=== PATIENT | male | born 1940 | race Caucasian/White ===

== ENCOUNTER 2018-12-17 11:09 | Inpatient (IN) | payer OTHER ==
--- NOTE | 2018-12-17 11:36 | PDOC ---
History of Present Illness - General History Source: Patient Exam Limitations: No Limitations - History of Present Illness Initial Comments: 12/17/18 12:21 The patient is a 78-year-old male, with a past medical history of HTN, sciatica , and arthritis, who presents to the ED for 1 week of abdominal pain. The patient describes the pain as constant, sharp in sensation, 8/10 in severity, localized to the lower abdomen with no radiation, with associated yellow loose stools. is at beside and states that the patient has not had a full meal in the past 4 days. She has been giving the patient Pediasure, which he has been able to tolerate. The patient was seen in his PCPs office yesterday for the pain and was advised to report to the ED for further evaluation. The patient denies any fever, chills, nausea, or vomiting. Denies any frequency , urgency, hesitancy, dysuria, or hematuria. Denies any chest pain or shortness of breath. Allergies: NKA Social History: None reported. Surgical History: Hernia repair, total LT knee replacement. PCP: Dr. Tala Devine ([facility] [place]) <Estefani Portillo - Last Filed: 12/17/18 12:21> - General History Source: Patient Exam Limitations: No Limitations <Ayanna Moody - Last Filed: 12/17/18 17:01> <Chanda Dunn - Last Filed: 12/17/18 18:23> - General Chief Complaint: Pain Stated Complaint: ABD PAIN Time Seen by Provider: 12/17/18 11:36 Past History <Estefani Portillo - Last Filed: 12/17/18 12:21> - Past Medical History COPD: No HTN: Yes - Surgical History Abdominal Surgery: Yes (hernia) GI Surgery: No - Immunization History Immunization Up to Date: No - Suicide/Smoking/Psychosocial Hx Smoking History: Never smoked Have you smoked in the past 12 months: No Information on smoking cessation initiated: No Hx Alcohol Use: No Drug/Substance Use Hx: No <Ayanna Moody - Last Filed: 12/17/18 17:01> <Chanda Dunn - Last Filed: 12/17/18 18:23> - Past Medical History Allergies/Adverse Reactions: Allergies Allergy/AdvReac Type Severity Reaction Status Date / Time No Known Allergies Allergy Verified 12/17/18 11:14 Home Medications: Ambulatory Orders Amlodipine Besylate [Norvasc -] 2.5 mg PO DAILY 12/17/18 Lovastatin 10 mg PO DAILY 12/17/18 Review of Systems - Review of Systems Able to Perform ROS?: Yes Comments:: 12/17/18 12:21 GENERAL/CONSTITUTIONAL: (+)Loss of appetite. No fever or chills. No weakness. HEAD, EYES, EARS, NOSE AND THROAT: No change in vision. No ear pain or discharge. No sore throat. CARDIOVASCULAR: No chest pain or shortness of breath. RESPIRATORY: No cough, wheezing, or hemoptysis. GASTROINTESTINAL: (+)Abdominal pain, diarrhea. No nausea, vomiting, or constipation. GENITOURINARY: No dysuria, frequency, or change in urination. MUSCULOSKELETAL: No joint or muscle swelling or pain. No neck or back pain. SKIN: No rash NEUROLOGIC: No headache, vertigo, loss of consciousness, or change in strength/ sensation. ENDOCRINE: No increased thirst. No abnormal weight change. HEMATOLOGIC/LYMPHATIC: No anemia, easy bleeding, or history of blood clots. ALLERGIC/IMMUNOLOGIC: No hives or skin allergy. <Estefani Portillo - Last Filed: 12/17/18 12:21> *Physical Exam - Vital Signs Last Vital Signs Temp Pulse Resp BP Pulse Ox 98.8 F 98 H 16 121/62 12/17/18 11:12 12/17/18 11:12 12/17/18 11:12 12/17/18 11:12 - Physical Exam Comments: 12/17/18 12:22 GENERAL: The patient is in no acute distress. HEAD: Normal with no signs of trauma. EYES: PERRLA, EOMI, sclera anicteric, conjunctiva clear. ENT: Ears normal, nares patent, oropharynx clear without exudates. Moist mucous membranes. NECK: Normal range of motion, supple without lymphadenopathy, JVD, or masses. LUNGS: Breath sounds equal, clear to auscultation bilaterally. No wheezes, and no crackles. HEART: (+)3/6 systolic murmur at the RT sternal border. No rub or gallop. ABDOMEN: (+)LLQ tenderness to palpation with voluntary guarding. (+)Right inguinal hernia, nontender. Soft, normoactive bowel sounds. No rebound. No masses palpable. EXTREMITIES: Normal range of motion, no edema. No clubbing or cyanosis. No erythema, or tenderness. NEUROLOGICAL: Cranial nerves II through XII grossly intact. Normal speech. No focal neurological deficits. MUSCULOSKELETAL: Back non-tender to palpation, no CVA tenderness SKIN: Warm, Dry, normal turgor, no rashes or lesions noted. <Estefani Portillo - Last Filed: 12/17/18 12:21> - Vital Signs Last Vital Signs Temp Pulse Resp BP Pulse Ox 98.8 F 98 H 16 121/62 12/17/18 11:12 12/17/18 11:12 12/17/18 11:12 12/17/18 11:12 <Ayanna Moody - Last Filed: 12/17/18 17:01> - Vital Signs Last Vital Signs Temp Pulse Resp BP Pulse Ox 98.8 F 98 H 16 12162 12/17/18 11:12 12/17/18 11:12 12/17/18 11:12 12/17/18 11:12 <Chanda Dunn - Last Filed: 12/17/18 18:23> Moderate Sedation - Procedure Monitoring Vital Signs: Procedure Monitoring Vital Signs Temperature 98.8 F 12/17/18 11:12 Pulse Rate 98 H 12/17/18 11:12 Respiratory Rate 16 12/17/18 11:12 Blood Pressure 121/62 12/17/18 11:12 O2 Sat by Pulse Oximetry (%) <Estefani Portillo - Last Filed: 12/17/18 12:21> - Procedure Monitoring Vital Signs: Procedure Monitoring Vital Signs Temperature 98.8 F 12/17/18 11:12 Pulse Rate 98 H 12/17/18 11:12 Respiratory Rate 16 12/17/18 11:12 Blood Pressure 121/62 12/17/18 11:12 O2 Sat by Pulse Oximetry (%) <Ayanna Moody - Last Filed: 12/17/18 17:01> - Procedure Monitoring Vital Signs: Procedure Monitoring Vital Signs Temperature 98.8 F 12/17/18 11:12 Pulse Rate 98 H 12/17/18 11:12 Respiratory Rate 16 12/17/18 11:12 Blood Pressure 121/62 12/17/18 11:12 O2 Sat by Pulse Oximetry (%) <Chanda Dunn - Last Filed: 12/17/18 18:23> ED Treatment Course - LABORATORY CBC & Chemistry Diagram: 12/17/18 11:46 12/17/18 11:46 - Medications Given in the ED: ED Medications Discontinued Medications Generic Name Dose Route Start Last Admin Trade Name Vero PRN Reason Stop Dose Admin Acetaminophen 1,000 mg 12/17/18 11:48 12/17/18 12:14 Ofirmev Injection - IVPB 12/17/18 11:49 1,000 mg ONCE ONE Administration <Estefani Portillo - Last Filed: 12/17/18 12:21> - LABORATORY CBC & Chemistry Diagram: 12/17/18 11:46 12/17/18 11:46 <Ayanna Moody - Last Filed: 12/17/18 17:01> - LABORATORY CBC & Chemistry Diagram: 12/17/18 11:46 12/17/18 11:46 - ADDITIONAL ORDERS Additional order review: Laboratory Results 12/17/18 12/17/18 12/17/18 11:46 11:46 11:30 PT with INR 15.60 H INR 1.32 H Sodium 138 Potassium 3.7 Chloride 104 Carbon Dioxide 28 Anion Gap 7 L BUN 19 H Creatinine 1.2 Creat Clearance w eGFR 58.40 Random Glucose 114 H Lactic Acid 1.9 Calcium 9.3 Total Bilirubin 0.5 AST 18 ALT 17 Alkaline Phosphatase 52 Total Protein 6.4 Albumin 2.8 L Total Amylase 33 Lipase 58 L Urine Color Urine Appearance Urine pH Ur Specific [place] Urine Protein Urine Glucose (UA) Urine Ketones Urine Blood Urine Nitrite Urine Bilirubin Urine Urobilinogen Ur Leukocyte Esterase Urine WBC (Auto) Urine RBC (Auto) Ur Epithelial Cells Urine Mucus 12/17/18 11:15 PT with INR INR Sodium Potassium Chloride Carbon Dioxide Anion Gap BUN Creatinine Creat Clearance w eGFR Random Glucose Lactic Acid Calcium Total Bilirubin AST ALT Alkaline Phosphatase Total Protein Albumin Total Amylase Lipase Urine Color Donya Urine Appearance Slcloudy Urine pH 5.0 Ur Specific [place] 1.026 Urine Protein 2+ H Urine Glucose (UA) Negative Urine Ketones 1+ H Urine Blood 1+ H Urine Nitrite Negative Urine Bilirubin Negative Urine Urobilinogen Negative Ur Leukocyte Esterase Negative Urine WBC (Auto) 1 Urine RBC (Auto) 1 Ur Epithelial Cells Rare Urine Mucus Many 12/17/18 11:46 RBC 4.09 MCV 90.6 MCHC 35.2 RDW 12.7 MPV 7.3 L Neutrophils % 82.1 Lymphocytes % 7.6 L Monocytes % 9.4 Eosinophils % 0.7 Basophils % 0.2 - Medications Given in the ED: ED Medications Discontinued Medications Generic Name Dose Route Start Last Admin Trade Name Vero PRN Reason Stop Dose Admin Acetaminophen 1,000 mg 12/17/18 11:48 12/17/18 12:14 Ofirmev Injection - IVPB 12/17/18 11:49 1,000 mg ONCE ONE Administration Metronidazole 500 mg in 100 mls @ 100 mls/hr 12/17/18 17:00 12/17/18 17:29 Flagyl 500mg Premixed Ivpb - IVPB 12/17/18 17:59 100 mls/hr ONCE ONE Administration <Chanda Dunn - Last Filed: 12/17/18 18:23> Medical Decision Making - Medical Decision Making 12/17/18 11:50 Mr Rojas is a 78 yo M who presents to the ER for evaluation of abdominal pain Symptoms have been present for the past week He was seen by his PMD who recommended that he come to the hospital Pt reports no fevers No vomiting Still having bowel movements (yellow, liquid stools) (+) flatus No dysuria Pt has not wanted to eat has been giving pediasure Examination reveals: Dry mucous membranes Right inguinal hernia is soft and non tender LLQ very tender to palpation, voluntary guarding Concerning for: Diverticulitis, abscess, colitis, colon mass, obstructing stone, less likely incarcerated hernia Will do: Labs CT IVF Pain medications Re assess 12/17/18 12:31 Laboratory Tests 12/17/18 11:46 WBC 16.3 H Hgb 13.0 Hct 37.1 Plt Count 344 Neutrophils % 82.1 Lymphocytes % 7.6 L 12/17/18 12:45 Laboratory Tests 12/17/18 12/17/18 11:15 11:30 INR 1.32 H Urine Blood 1+ H Urine Nitrite Negative Ur Leukocyte Esterase Negative 12/17/18 13:58 Laboratory Tests 12/17/18 12/17/18 11:15 11:46 Sodium 138 Potassium 3.7 Chloride 104 Carbon Dioxide 28 BUN 19 H Creatinine 1.2 Random Glucose 114 H AST 18 ALT 17 Total Amylase 33 Lipase 58 L Urine Appearance Slcloudy Urine Nitrite Negative Ur Leukocyte Esterase Negative Urine WBC (Auto) 1 Urine RBC (Auto) [address]it[address] Cells Rare CT pending 12/17/18 15:38 Creatinine 1.2, BUN 19 Pt has been hydrated with IVF prior to CT 12/17/18 17:01 CT demonstrates crook colitis, appendix dilation, no surrounding stranding Will give Zosyn and Flagyl Will give IVF NPO Lactate nml, doubt ischemic colitis Will admit: crook colitis, initial presentation <Ayanna Moody - Last Filed: 12/17/18 17:01> - Medical Decision Making case discussed with Dr. Osborne from [facility] who accepts pt to service 12/17/18 18:23 <Chanda Dunn - Last Filed: 12/17/18 18:23> *DC/Admit/Observation/Transfer - Attestations Scribe Attestion: 12/17/18 12:25 Documentation prepared by Estefani Portillo, acting as medical collector for Ayanna Moody MD. <Estefani Portillo - Last Filed: 12/17/18 12:21> - Discharge Dispostion Decision to Admit order: Yes <Ayanna Moody - Last Filed: 12/17/18 17:01> <Chanda Dunn - Last Filed: 12/17/18 18:23> Diagnosis at time of Disposition: Pancolitis - Discharge Dispostion Condition at time of disposition: Stable
[2018-12-17] MEDS ORDERED: morphine CARPU-JECT 2 MG/1 ML DISP.SYRIN IVPUSH ONE (11:48)
[2018-12-17] MEDS ORDERED: ACETAMINOPHEN 1000 MG/100 ML VIAL (NON FORMULARY) IVPB ONE (11:48)
[2018-12-17] MEDS ORDERED: SODIUM CHLORIDE 1,000 ML IV STA (11:48)
[2018-12-17] MEDS ORDERED: ACETAMINOPHEN INJECTION 100 ML IVPB ONE (12:12)
[2018-12-17 12:27] LABS: BASO % 0.2 % (0-2.0); EOS % 0.7 % (0-4.5); HEMATOCRIT 37.1 % (35.4-49); LYMPH % 7.6 % (8-40); MCH 31.9 pg (25.7-33.7); MCHC 35.2 g/dl (32.0-35.9); MEAN CELL VOLUME 90.6 fl (80-96); MEAN PLT VOLUME 7.3 fl (7.5-11.1); MONO % 9.4 % (3.8-10.2); NEUT % 82.1 % (42.8-82.8); PLATELET COUNT 344 K/MM3 (134-434); RBC 4.09 M/mm3 (4.00-5.60); RDW 12.7 % (11.9-15.9); WHITE BLOOD COUNT 16.3 K/mm3 (4.0-10.0)
[2018-12-17 12:40] LABS: URINE APPEARANCE SLCLOUDY; URINE BILIRUBIN NEGATIVE (<2.0 mg/dL); URINE COLOR AMBER; URINE GLUCOSE (UA) NEGATIVE (NEGATIVE); URINE KETONE 1+ (NEGATIVE); URINE LEUK ESTERASE NEGATIVE (NEGATIVE); URINE NITRITE NEGATIVE (NEGATIVE); URINE PROTEIN 2+ (NEGATIVE); URINE UROBILINOGEN NEGATIVE mg/dL (0.2-1.0)
[2018-12-17 12:43] LABS: EPI CELLS RARE /HPF (FEW); URINE MUCUS MANY
[2018-12-17 12:43] LABS: INR 1.32 (0.83-1.09); PROTHROMBIN TIME (PATIENT) 15.6 SEC (9.7-13.0)
[2018-12-17 12:49] LABS: ALBUMIN 2.8 g/dl (3.4-5.0); ALK PHOS 52 U/L (45-117); AMYLASE 33 U/L (25-115); ANION GAP 7 MMOL/L (8-16); BILIRUBIN,TOTAL 0.5 mg/dL (0.2-1); BLOOD UREA NITROGEN 19 mg/dL (7-18); CALCIUM 9.3 mg/dL (8.5-10.1); CHLORIDE 104 mmol/L (98-107); CO2 28 mmol/L (21-32); CREATININE 1.2 mg/dL (0.55-1.3); GLUCOSE,RANDOM 114 mg/dL (74-106); LIPASE 58 U/L (73-393); POTASSIUM 3.7 mmol/L (3.5-5.1); SGOT/AST 18 U/L (15-37); SGPT/ALT 17 U/L (13-61); SODIUM 138 mmol/L (136-145); TOT PROT 6.4 g/dl (6.4-8.2)
[2018-12-17] MEDS ORDERED: PIPERACILLIN/TAZOB 4.5 GM 4.5 GM in DEXTROSE 5%-WATER 100 ML IVPB ONE (17:00)
[2018-12-17] MEDS ORDERED: PIPERACILLIN/TAZOB 4.5 GM 4.5 GM/100 ML BAG IVPB ONE (17:20)
[2018-12-17] MEDS: SODIUM CHLORIDE 1,000 ML IV SCH (17:28)
[2018-12-17] MEDS ORDERED: ACETAMINOPHEN 1000 MG/100 ML VIAL (NON FORMULARY) IVPB PRN (18:21)
[2018-12-17] MEDS ORDERED: MORPHINE SULFATE 2 MG/ML VIAL ONE (20:09)
--- NOTE | 2018-12-17 20:51 | HP ---
CHIEF COMPLAINT: diarrhea PCP: Dr. Tala Devine HISTORY OF PRESENT ILLNESS: 78 y/o male with PMH of HTN, sciatica presents to the ED with multiple episodes of diarrhea for the past week. Patient states that for the past week he has been having multiple episodes of loose, watery yellow stool with mucus. However , he has not had any associated nausea/vomiting or abdominal pain, nor any fevers or chills. Patient denies any recent travel, changes in diet, or any recent antibiotic use/hospitalizations. He has not had a colonoscopy in the past. ER course was notable for: (1)wbc 16.3; LA 1.9 (2) CT ab/pelvis shows pancolitis (3)given zosyn/flagyl; Recent Travel: none PAST MEDICAL HISTORY: see above PAST SURGICAL HISTORY: knee surgery in 1999 Social History: Smoking:denies Alcohol:denies Drugs: denies Family History: father from ruptured abdominal aortic aneurysm Allergies No Known Allergies Allergy (Verified 12/17/18 11:14) HOME MEDICATIONS: Home Medications Medication Instructions Recorded Amlodipine Besylate [Norvasc -] 2.5 mg PO DAILY 12/17/18 Lovastatin 10 mg PO DAILY 12/17/18 REVIEW OF SYSTEMS CONSTITUTIONAL: Absent: fever, chills, diaphoresis, generalized weakness, malaise, loss of appetite, weight change HEENT: Absent: rhinorrhea, nasal congestion, throat pain, throat swelling, difficulty swallowing, mouth swelling, ear pain, eye pain, visual changes CARDIOVASCULAR: Absent: chest pain, syncope, palpitations, irregular heart rate, lightheadedness , peripheral edema RESPIRATORY: Absent: cough, shortness of breath, dyspnea with exertion, orthopnea, wheezing, stridor, hemoptysis GASTROINTESTINAL: Present: diarrheaAbsent: abdominal pain, abdominal distension, nausea, vomiting , constipation, melena, hematochezia GENITOURINARY: Absent: dysuria, frequency, urgency, hesitancy, hematuria, flank pain, genital pain MUSCULOSKELETAL: Absent: myalgia, arthralgia, joint swelling, back pain, neck pain SKIN: Absent: rash, itching, pallor HEMATOLOGIC/IMMUNOLOGIC: Absent: easy bleeding, easy bruising, lymphadenopathy, frequent infections ENDOCRINE: Absent: unexplained weight gain, unexplained weight loss, heat intolerance, cold intolerance NEUROLOGIC: Absent: headache, focal weakness or paresthesias, dizziness, unsteady gait, seizure, mental status changes, bladder or bowel incontinence PSYCHIATRIC: Absent: anxiety, depression, suicidal or homicidal ideation, hallucinations. PHYSICAL EXAMINATION Vital Signs - 24 hr 12/17/18 12/17/18 11:12 19:24 Temperature 98.8 F 98.7 F Pulse Rate 98 H Pulse Rate [ 103 H Apical] Respiratory 16 22 H Rate Blood Pressure 121/62 Blood Pressure 132/69 [Left Arm] O2 Sat by Pulse 97 Oximetry (%) GENERAL: Awake, alert, and fully oriented, in no acute distress. EYES: EOMI; no scleral icterus.. NECK: no JVD, no lymphadenopathy. LUNGS: CTA B/L; no rales, rhonchi or wheezing HEART: tachycardic; 3/6 systolic murmur heard in right upper sternal border. ABDOMEN: sooft; slight lower abdominal tenderness upon palpation; + BS in all 4 quadrants; no guarding or rebound MUSCULOSKELETAL: Normal range of motion at all joints. No bony deformities or tenderness. No CVA tenderness. EXTREMITIES: warm; well-perfused; no clubbing/cyanosis or edema NEUROLOGICAL: Cranial nerves II-XII intact. Normal speech. Normal gait. PSYCHIATRIC: Cooperative. Good eye contact. Appropriate mood and affect. SKIN: Warm, dry, normal turgor, no rashes or lesions noted, normal capillary refill. Laboratory Results - last 24 hr 12/17/18 12/17/18 12/17/18 11:15 11:30 11:46 WBC 16.3 H RBC 4.09 Hgb 13.0 Hct 37.1 MCV 90.6 MCH 31.9 MCHC 35.2 RDW 12.7 Plt Count 344 MPV 7.3 L Absolute Neuts (auto) 13.4 H Neutrophils % 82.1 Lymphocytes % 7.6 L Monocytes % 9.4 Eosinophils % 0.7 Basophils % 0.2 Nucleated RBC % 0 PT with INR 15.60 H INR 1.32 H Sodium Potassium Chloride Carbon Dioxide Anion Gap BUN Creatinine Creat Clearance w eGFR Random Glucose Lactic Acid Calcium Total Bilirubin AST ALT Alkaline Phosphatase Total Protein Albumin Total Amylase Lipase Urine Color Donya Urine Appearance Slcloudy Urine pH 5.0 Ur Specific [place] 1.026 Urine Protein 2+ H Urine Glucose (UA) Negative Urine Ketones 1+ H Urine Blood 1+ H Urine Nitrite Negative Urine Bilirubin Negative Urine Urobilinogen Negative Ur Leukocyte Esterase Negative Urine WBC (Auto) 1 Urine RBC (Auto) 1 Ur Epithelial Cells Rare Urine Mucus Many 12/17/18 12/17/18 11:46 11:46 WBC RBC Hgb Hct MCV MCH MCHC RDW Plt Count MPV Absolute Neuts (auto) Neutrophils % Lymphocytes % Monocytes % Eosinophils % Basophils % Nucleated RBC % PT with INR INR Sodium 138 Potassium 3.7 Chloride 104 Carbon Dioxide 28 Anion Gap 7 L BUN 19 H Creatinine 1.2 Creat Clearance w eGFR 58.40 Random Glucose 114 H Lactic Acid 1.9 Calcium 9.3 Total Bilirubin 0.5 AST 18 ALT 17 Alkaline Phosphatase 52 Total Protein 6.4 Albumin 2.8 L Total Amylase 33 Lipase 58 L Urine Color Urine Appearance Urine pH Ur Specific [place] Urine Protein Urine Glucose (UA) Urine Ketones Urine Blood Urine Nitrite Urine Bilirubin Urine Urobilinogen Ur Leukocyte Esterase Urine WBC (Auto) Urine RBC (Auto) Ur Epithelial Cells Urine Mucus ASSESSMENT/PLAN: 78 y/o male with PMH of HTN, sciatica presents to the ED with a one week history of diarrhea with slight lower abdominal tenderness. #Diarrhea 2/2 colitis -etiology infectious v. c diff v. viral v. parasitic -stool cultures pending -stool ova and parasite ordered -c diff antigen and toxin -c/w zosyn and flagyl -IV fluids -GI consult #HTN -c/w home meds F/E/N NS @125 mls monitor electrolytes NPO Problem List - Problem (1) Pancolitis Code(s): K51.00 - ULCERATIVE (CHRONIC) PANCOLITIS WITHOUT COMPLICATIONS Visit type - Emergency Visit Emergency Visit: Yes ED Registration Date: 12/17/18 Care time: The patient presented to the Emergency Department on the above date and was hospitalized for further evaluation of their emergent condition. - New Patient This patient is new to me today: Yes Date on this admission: 12/17/18 - Critical Care Critical Care patient: No
[2018-12-17] MEDS ORDERED: PIPERACILLIN/TAZOB 4.5 GM 4.5 GM in DEXTROSE 5%-WATER 100 ML IVPB SCH (21:00)
--- NOTE | 2018-12-17 21:07 | PN ---
Teaching Attending Note Name of Resident: Kezia Miramontes ATTENDING PHYSICIAN STATEMENT I saw and evaluated the patient. I reviewed the resident's note and discussed the case with the resident. I agree with the resident's findings and plan as documented. SUBJECTIVE: OBJECTIVE: Vital Signs Period Temp Pulse Resp BP Sys/Leon Pulse Ox Last 24 Hr 98.7 F-98.8 F 98-103 16-22 121-132/62-69 97 Laboratory Tests 12/17/18 12/17/18 12/17/18 11:15 11:30 11:46 WBC 16.3 H RBC 4.09 Hgb 13.0 Hct 37.1 MCV 90.6 MCH 31.9 MCHC 35.2 RDW 12.7 Plt Count 344 MPV 7.3 L Absolute Neuts (auto) 13.4 H Neutrophils % 82.1 Lymphocytes % 7.6 L Monocytes % 9.4 Eosinophils % 0.7 Basophils % 0.2 Nucleated RBC % 0 PT with INR 15.60 H INR 1.32 H Sodium Potassium Chloride Carbon Dioxide Anion Gap BUN Creatinine Creat Clearance w eGFR Random Glucose Lactic Acid Calcium Total Bilirubin AST ALT Alkaline Phosphatase Total Protein Albumin Total Amylase Lipase Urine Color Donya Urine Appearance Slcloudy Urine pH 5.0 Ur Specific [place] 1.026 Urine Protein 2+ H Urine Glucose (UA) Negative Urine Ketones 1+ H Urine Blood 1+ H Urine Nitrite Negative Urine Bilirubin Negative Urine Urobilinogen Negative Ur Leukocyte Esterase Negative Urine WBC (Auto) 1 Urine RBC (Auto) 1 Ur Epithelial Cells Rare Urine Mucus Many 12/17/18 12/17/18 11:46 11:46 WBC RBC Hgb Hct MCV MCH MCHC RDW Plt Count MPV Absolute Neuts (auto) Neutrophils % Lymphocytes % Monocytes % Eosinophils % Basophils % Nucleated RBC % PT with INR INR Sodium 138 Potassium 3.7 Chloride 104 Carbon Dioxide 28 Anion Gap 7 L BUN 19 H Creatinine 1.2 Creat Clearance w eGFR 58.40 Random Glucose 114 H Lactic Acid 1.9 Calcium 9.3 Total Bilirubin 0.5 AST 18 ALT 17 Alkaline Phosphatase 52 Total Protein 6.4 Albumin 2.8 L Total Amylase 33 Lipase 58 L Urine Color Urine Appearance Urine pH Ur Specific [place] Urine Protein Urine Glucose (UA) Urine Ketones Urine Blood Urine Nitrite Urine Bilirubin Urine Urobilinogen Ur Leukocyte Esterase Urine WBC (Auto) Urine RBC (Auto) Ur Epithelial Cells Urine Mucus Home Medications Medication Instructions Recorded Amlodipine Besylate [Norvasc -] 2.5 mg PO DAILY 12/17/18 Lovastatin 10 mg PO DAILY 12/17/18 ASSESSMENT AND PLAN:
--- NOTE | 2018-12-17 21:23 | PN ---
Teaching Attending Note Name of Resident: Kezia Miramontes ATTENDING PHYSICIAN STATEMENT I saw and evaluated the patient. I reviewed the resident's note and discussed the case with the resident. I agree with the resident's findings and plan as documented. SUBJECTIVE: This is a 78 year old man with a history of HTN, hyperlipidemia, sciatica who comes to the ED complaining of lower abdominal pain and diarrhea for one week. His bowel movements have been watery and yellow and containing mucus. He has not had an appetite and eating makes his symptoms worse. He denies fever, chills, nausea, vomiting, rectal bleeding. He has never had anything similar. He denies recent travel. he has not eaten anything or anywhere unusual. He denies sick contacts. OBJECTIVE: Vital Signs Period Temp Pulse Resp BP Sys/Leon Pulse Ox Last 24 Hr 98.7 F-98.8 F 98-103 16-22 121-132/62-69 97 HEART: S1S2, tachycardic LUNGS: Clear ABDOMEN: Soft, non-tender, non-distended, (+) BS EXTREMITIES: No edema Laboratory Tests 12/17/18 12/17/18 12/17/18 11:15 11:30 11:46 WBC 16.3 H RBC 4.09 Hgb 13.0 Hct 37.1 MCV 90.6 MCH 31.9 MCHC 35.2 RDW 12.7 Plt Count 344 MPV 7.3 L Absolute Neuts (auto) 13.4 H Neutrophils % 82.1 Lymphocytes % 7.6 L Monocytes % 9.4 Eosinophils % 0.7 Basophils % 0.2 Nucleated RBC % 0 PT with INR 15.60 H INR 1.32 H Sodium Potassium Chloride Carbon Dioxide Anion Gap BUN Creatinine Creat Clearance w eGFR Random Glucose Lactic Acid Calcium Total Bilirubin AST ALT Alkaline Phosphatase Total Protein Albumin Total Amylase Lipase Urine Color Donya Urine Appearance Slcloudy Urine pH 5.0 Ur Specific [place] 1.026 Urine Protein 2+ H Urine Glucose (UA) Negative Urine Ketones 1+ H Urine Blood 1+ H Urine Nitrite Negative Urine Bilirubin Negative Urine Urobilinogen Negative Ur Leukocyte Esterase Negative Urine WBC (Auto) 1 Urine RBC (Auto) 1 Ur Epithelial Cells Rare Urine Mucus Many 12/17/18 12/17/18 11:46 11:46 WBC RBC Hgb Hct MCV MCH MCHC RDW Plt Count MPV Absolute Neuts (auto) Neutrophils % Lymphocytes % Monocytes % Eosinophils % Basophils % Nucleated RBC % PT with INR INR Sodium 138 Potassium 3.7 Chloride 104 Carbon Dioxide 28 Anion Gap 7 L BUN 19 H Creatinine 1.2 Creat Clearance w eGFR 58.40 Random Glucose 114 H Lactic Acid 1.9 Calcium 9.3 Total Bilirubin 0.5 AST 18 ALT 17 Alkaline Phosphatase 52 Total Protein 6.4 Albumin 2.8 L Total Amylase 33 Lipase 58 L Urine Color Urine Appearance Urine pH Ur Specific [place] Urine Protein Urine Glucose (UA) Urine Ketones Urine Blood Urine Nitrite Urine Bilirubin Urine Urobilinogen Ur Leukocyte Esterase Urine WBC (Auto) Urine RBC (Auto) Ur Epithelial Cells Urine Mucus Home Medications Medication Instructions Recorded Amlodipine Besylate [Norvasc -] 2.5 mg PO DAILY 12/17/18 Lovastatin 10 mg PO DAILY 12/17/18 ASSESSMENT AND PLAN: This is a 78 year old man with a history of HTN, hyperlipidemia, sciatica who presented to the ED with lower abdominal pain and diarrhea for one week. 1. Sepsis (leukocytosis, tachycardia) secondary to acute infectious colitis - NPO - IV fluid - Ceftriaxone, Flagyl IV - Stool for culture, O&P, C. diff 2. HTN - Continue Norvasc 3. Hyperlipidemia - Continue Mevacor
[2018-12-17] MEDS ORDERED: HEPARIN NA (PORCINE) 5,000 UNITS/ML 1ML VIAL ONE (22:54)
[2018-12-17] MEDS ORDERED: CEFTRIAXONE 1 GM/50 ML BAG ONE (22:54)
[2018-12-17] MEDS: HEPARIN NA (PORCINE) 5,000 UNITS/ML 1ML VIAL SQ SCH (23:19)
[2018-12-17] MEDS: CEFTRIAXONE 1 GM in DEXTROSE 5%-WATER - 50 ML IVPB SCH (23:19)
[2018-12-18] MEDS ORDERED: PIPERACILLIN/TAZOB 3.375 GM 3.375 GM in DEXTROSE 5%-WATER - 50 ML IVPB SCH (02:00)
[2018-12-18 02:13] VITALS: BMI 23.5
[2018-12-18] MEDS: SODIUM CHLORIDE 1,000 ML IV SCH ×2 (02:37→19:39)
[2018-12-18] MEDS: HEPARIN NA (PORCINE) 5,000 UNITS/ML 1ML VIAL SQ SCH ×3 (06:11→21:06)
[2018-12-18 07:34] LABS: BASO % 0.5 % (0-2.0); EOS % 2.9 % (0-4.5); HEMATOCRIT 30.4 % (35.4-49); HEMOGLOBIN 10.5 GM/dL (11.7-16.9); LYMPH % 10.8 % (8-40); MCH 31.8 pg (25.7-33.7); MCHC 34.6 g/dl (32.0-35.9); MEAN CELL VOLUME 91.8 fl (80-96); MONO % 11.7 % (3.8-10.2); NEUT % 74.1 % (42.8-82.8); PLATELET COUNT 255 K/MM3 (134-434); RBC 3.31 M/mm3 (4.00-5.60); RDW 12.9 % (11.9-15.9); WHITE BLOOD COUNT 11.2 K/mm3 (4.0-10.0)
--- NOTE | 2018-12-18 07:49 | CON.GI ---
Consult Consult Specialty:: GI Referred by:: Hospitalist Service Reason for Consultation:: Abdominal pain and diarrhea - History of Present Illness Chief Complaint: Abdominal pain and diarrhea History of Present Illness: 78M admitted for evaluation of 5 days worth of lower abdominal pain and explosive, watery diarrhea. Prior to that he was in his [place]. He denies any recent travel, change in dietary habits, sick contacts with similar complaints, recent antibiotic therapy, recent change in medication regimen, prior history of GI complaints. He alludes to having had a recent cortisone injection for left sided sciatica. He denies associated nausea, vomiting, rectal bleeding. There is no family history of colorectal cancer or other GI malignancy. There is no family history of IBD. CT scan revealed diffuse colitis spanning the length of the colon as well as hepatic cysts and a right inguinal hernia. leukocytosis is improved. No stool studies have been sent as of yet. 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) Cardio/Vascular: Yes: HTN - Past Surgical History Additional Surgical History: right knee surgery - Alcohol/Substance Use Hx Alcohol Use: No History of Substance Use: reports: None - Smoking History Smoking history: Never smoked Have you smoked in the past 12 months: No - Social History Usual Living Arrangement: With Spouse ADL: Independent Occupation: Retired: worked for [employer] of : [employer] History of Recent Travel: No Home Medications - Allergies Allergies/Adverse Reactions: Allergies Allergy/AdvReac Type Severity Reaction Status Date / Time No Known Allergies Allergy Verified 12/17/18 11:14 - Home Medications Home Medications: Ambulatory Orders Amlodipine Besylate [Norvasc -] 2.5 mg PO DAILY 12/17/18 Lovastatin 10 mg PO DAILY 12/17/18 Family Disease History - Family Disease History Family Disease History: Other: Father (: 80's "old age"), Mother (: 80' s "old age"), Brother (2, 1 from perforation, 1 from unclear etiology) , Son (3, healthy) Other Family History: No family history of colorectal cancer / IBD Review of Systems - Review of Systems Constitutional: reports: Chills. denies: Unintentional Wgt. Loss Cardiovascular: denies: Chest Pain Respiratory: denies: Cough, SOB Gastrointestinal: reports: Abdominal Pain, Diarrhea. denies: Melena, Nausea, Rectal Bleeding, Vomiting Physical Exam-GI Vital Signs: Vital Signs Temperature 98.3 F 12/18/18 06:46 Pulse Rate 96 H 12/18/18 06:46 Respiratory Rate 20 12/18/18 06:46 Blood Pressure 118/73 12/18/18 06:46 O2 Sat by Pulse Oximetry (%) 97 12/18/18 01:58 Constitutional: Yes: Calm Eyes: No: Sclera Icterus Cardiovascular: Yes: Tachycardia, Murmur (+ systolic murmur) Respiratory: Yes: CTA Bilaterally Gastrointestinal Inspection: No: Distention ...Auscultate: Yes: Hyperactive Bowel Sounds ...Palpate: Yes: Tenderness (TTP left abdomen and suprapubic region) ...Percussion: No: Tympanitic Edema: No (No LE edema) Neurological: Yes: Alert, Oriented Labs: CBC, BMP 12/18/18 06:30 INR, PTT INR 1.32 (0.83-1.09) H 12/17/18 11:30 Problem List - Problems (1) Pancolitis Assessment/Plan: By description, acute colitis: Suspect infectious etiology Await stool studies: c. diff, culture, O&P On multiple abx currently. D/C IV flagyl, PO Vanco until C. Diff excluded ID consulted No need to keep NPO. See if can tolerate clears Monitor abdominal exam, CBC Code(s): K51.00 - ULCERATIVE (CHRONIC) PANCOLITIS WITHOUT COMPLICATIONS
[2018-12-18] MEDS ORDERED: cefTRIAXone SODIUM 1 GM VIAL ONE (08:31)
[2018-12-18] MEDS ORDERED: DEXTROSE 5%-WATER - 50 ML IVPB ONE (08:31)
[2018-12-18 09:23] LABS: ALBUMIN 2.2 g/dl (3.4-5.0); ALK PHOS 39 U/L (45-117); ANION GAP 11 MMOL/L (8-16); BILIRUBIN,TOTAL 1.2 mg/dL (0.2-1); BLOOD UREA NITROGEN 14 mg/dL (7-18); CALCIUM 7.9 mg/dL (8.5-10.1); CHLORIDE 110 mmol/L (98-107); CO2 22 mmol/L (21-32); GLUCOSE,RANDOM 78 mg/dL (74-106); MAGNESIUM 1.8 mg/dL (1.8-2.4); PHOSPHOROUS 2.3 mg/dL (2.5-4.9); POTASSIUM 3.6 mmol/L (3.5-5.1); SGOT/AST 18 U/L (15-37); SGPT/ALT 14 U/L (13-61); SODIUM 143 mmol/L (136-145); TOT PROT 4.8 g/dl (6.4-8.2)
[2018-12-18] MEDS: CEFTRIAXONE 1 GM in DEXTROSE 5%-WATER - 50 ML IVPB SCH (09:33)
[2018-12-18] MEDS: amLODIPine BESYLATE 2.5 MG TABLET (FP) PO SCH (09:33)
--- NOTE | 2018-12-18 11:57 | EKG ---
Test Reason : Blood Pressure : / mmHG Vent. Rate : 108 BPM Atrial Rate : 108 BPM P-R Int : 140 ms QRS Dur : 100 ms QT Int : 326 ms P-R-T Axes : 007 -22 033 degrees QTc Int : 436 ms SINUS TACHYCARDIA WITH PREMATURE ATRIAL COMPLEXES WITH ABERRANT CONDUCTION OTHERWISE NORMAL ECG NO PREVIOUS ECGS AVAILABLE Confirmed by EBONY JOLLY, BLAINE ([id number]) on 12/18/2018 11:56:53 AM Referred By: Confirmed By:BLAINE BECK MD
--- NOTE | 2018-12-18 12:58 | PN ---
Progress Note (short form) - Note Progress Note: ID CONSULT DICTATED PANCOLITIS R/O ENTERIC PATHOGENS FEVER/ LEUKOCYTOSIS R/O SEPSIS SECONDARY TO GI FOCUS AWAIT STOOL STUDIES CONTINUE EMPIRIC CEFTRIAXONE/ FLAGYL
--- NOTE | 2018-12-18 13:27 | CONS ---
DATE OF CONSULTATION: DATE OF DICTATION: 12/18/2018 HISTORY: The patient is a 78-year-old male who was evaluated for colitis. He was admitted to the hospital on December 17, 2018 with an approximately [id number] of lower abdominal pain and diarrhea. The patient describes intermittent sharp abdominal pain mainly in the left lower quadrant associated with loose, yellow bowel movements. He has had [id number] oral intake over the past 3-4 days. He was evaluated in the emergency room where a CAT scan showed pancolitis as well as a fluid-filled appendix and right lower quadrant mesenteric lymphadenitis. Cultures were obtained. He was empirically treated with ceftriaxone and Flagyl. The patient at the present time is comfortable. He continues to have loose, nonbloody stool. He denies any nausea or vomiting. No hematemesis or vomiting or zack blood. No melena or hematochezia. He denies any associated fever or chills. No recent antibiotic usage. No ill contacts. His with whom he shares meals has no GI symptoms. No recent travel. PAST MEDICAL HISTORY: Positive for hypertension, hyperlipidemia, osteoarthritis, sciatica. 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 ALLERGIES: No known allergies. MEDICATIONS: Include Tylenol, Norvasc, Lipitor, ceftriaxone, Flagyl. SOCIAL HISTORY: He lives at home. Nonsmoker. Nondrinker. SYSTEMS REVIEW: Neurologic: No loss of consciousness, seizure activity, focal weakness. Cardiac: Negative chest pain or palpitations. Respiratory: Negative cough or sputum production. Gastrointestinal: As per HPI. Genitourinary: Negative for urinary tract infection. LABORATORY DATA: White count 16.3 with 82 neutrophils, 7 lymphocytes, 9 monocytes, 0.7 eosinophils. Hematocrit 30.4, platelet count 255, creatinine 1, total bilirubin 1.2, alkaline phosphatase 39, AST 18. Urinalysis 1 white cells. Cultures are pending. CAT scan as described. PHYSICAL EXAMINATION: General: He is supine in bed in no acute distress. Vital Signs: Temperature 97.8, T-max 101.4, blood pressure 112/60, pulse 92 and regular, respirations 18 per minute. HEENT: Sclerae anicteric. Dry mucous membranes. Heart: S1, S2. Lungs: Clear. Abdomen: Hypoactive bowel sounds. Abdomen is soft. There is left lower quadrant tenderness to palpation. No right lower quadrant tenderness. There is a right inguinal hernia. No mass, rebound, or rigidity. Extremities: Negative for edema. IMPRESSION: 1. Pancolitis, rule out enteric pathogens. 2. Fever, leukocytosis, rule out sepsis secondary to gastrointestinal focus. 3. Inguinal hernia. PLAN: Await stool studies. Stool culture and sensitivity, ova and parasites, Clostridium difficile. We will obtain stool for Norovirus, Rotavirus, Cryptosporidium, giardia, and Isospora. We will order ameobic serology in light of CAT scan findings of hepatic cysts. Continue empiric ceftriaxone and Flagyl. Further recommendations pending cultures. We will follow. Thank you for the kind referral. JOSIAH MCGILL M.D. [id number]
[2018-12-18] MEDS: PIPERACILLIN/TAZOB 3.375 GM 3.375 GM in DEXTROSE 5%-WATER - 50 ML IVPB SCH ×2 (13:47)
--- NOTE | 2018-12-18 16:48 | PN ---
Physical Exam: SUBJECTIVE: Patient seen and examined at bedside this morning. Patient is a 78 year old male with past medical history of HTN and sciatica, presented with a 5- day history of multiple episodes of loose, watery brownish stools. This was accompanied by lower abdominal pain. Patient denies nausea, vomiting, fever, or chills. He denies any recent travel, diet changes, recent antibiotic use/ hospitalizations, sick contacts, medications changes. Overnight, patient had a fever of 101.4, but remained afebrile the whole day. OBJECTIVE: Vital Signs Period Temp Pulse Resp BP Sys/Leon Pulse Ox Last 24 Hr 97.8 F-101.4 F 68-103 18-22 110-134/60-73 97-97 GENERAL: The patient is awake, alert, and fully oriented, in no acute distress. NECK: Trachea midline, full range of motion, supple. LUNGS: Breath sounds equal, clear to auscultation bilaterally. HEART: Regular rate and rhythm, S1, S2 without murmur, rub or gallop. ABDOMEN: Soft, +LLQ tenderness, nondistended, normoactive bowel sounds. EXTREMITIES: 2+ pulses, warm, well-perfused, no edema. NEUROLOGICAL: Cranial nerves II through XII grossly intact. Normal speech, gait not observed. PSYCH: Normal mood, normal affect. SKIN: Warm, dry, normal turgor, no rashes or lesions noted Laboratory Results - last 24 hr 12/18/18 12/18/18 12/18/18 06:30 06:30 06:30 WBC 11.2 H RBC 3.31 L Hgb 10.5 L Hct 30.4 L D MCV 91.8 MCH 31.8 MCHC 34.6 RDW 12.9 Plt Count 255 D MPV 7.0 L Absolute Neuts (auto) 8.3 H Neutrophils % 74.1 Lymphocytes % 10.8 D Monocytes % 11.7 H Eosinophils % 2.9 D Basophils % 0.5 Nucleated RBC % 0 ESR 44 H Sodium 143 Potassium 3.6 Chloride 110 H Carbon Dioxide 22 Anion Gap 11 BUN 14 Creatinine 1.0 Creat Clearance w eGFR > 60 Random Glucose 78 Calcium 7.9 L Phosphorus 2.3 L Magnesium 1.8 Total Bilirubin 1.2 H AST 18 ALT 14 Alkaline Phosphatase 39 L Total Protein 4.8 L Albumin 2.2 L Active Medications Generic Name Dose Route Start Last Admin Trade Name Freq PRN Reason Stop Dose Admin Acetaminophen 1,000 mg 12/17/18 18:21 12/18/18 02:36 Ofirmev Injection - IVPB 1,000 mg Q6H PRN Administration PAIN OR FEVER Amlodipine Besylate 2.5 mg 12/18/18 10:00 12/18/18 09:33 Norvasc - PO 2.5 mg DAILY DOUG Administration Atorvastatin Calcium 10 mg 12/18/18 22:00 Lipitor - PO HS DOUG Heparin Sodium (Porcine) 5,000 unit 12/17/18 22:00 12/18/18 14:04 Heparin - SQ 5,000 unit TID DOUG Administration Sodium Chloride 1,000 mls @ 125 mls/hr 12/17/18 17:00 12/18/18 02:37 Normal Saline - IV 125 mls/hr ASDIR DOUG Administration Metronidazole 500 mg in 100 mls @ 100 mls/hr 12/17/18 21:00 12/18/18 14:07 Flagyl 500mg Premixed Ivpb - IVPB 100 mls/hr Q6H-IV DOUG Administration Vancomycin HCl 125 mg 12/18/18 18:00 Vancomycin Oral Solution PO Q6HPO DOUG ASSESSMENT/PLAN: Patient is a 78 year old male with past medical history of HTN and sciatica, presented with a 5-day history of multiple episodes of loose, watery brownish stools. #Diarrhea 2/2 colitis -CT AP: Acute pancolitis is identified. Mild fluid-filled distention of the appendix probably on a reactive basis. Several mildly prominent right lower quadrant mesenteric lymph nodes are seen probably on a reactive basis also. A right inguinal hernia is noted containing nondilated distal ileal bowel loops. No gross small bowel inflammatory changes. -C. diff toxin and antigen positive -stool culture, ova and parasite pending -GI (Dr. Dacosta) consulted. REcommendations appreciated. -ID (Dr. Walter) consulted. Recommendations appreciated. -IV Flagyl 500mg q6h -PO Vancomycin 125mg q6h -Parasites crypto/Giardia Ag -E. histolytica, Isospora, Norovirus, Rotavirus ag #Hypertension -Continue Norvasc 2.5mg daily #Hyperlipidemia -Continue Lipitor 10mg PO HS #FEN -IV NS @125ml/hr -hypokalemia, repleted -Routine bmp monitoring -Clear liquid diet #Prophylaxis -Heparin 5000units sq tid #Disposition -full code -med surg Visit type - Emergency Visit Emergency Visit: Yes ED Registration Date: 12/17/18 Care time: The patient presented to the Emergency Department on the above date and was hospitalized for further evaluation of their emergent condition. - New Patient This patient is new to me today: Yes Date on this admission: 12/18/18 - Critical Care Critical Care patient: No
[2018-12-18] MEDS ORDERED: PT OWN MED DRAWER 7, Y5N ONE (16:55)
--- NOTE | 2018-12-18 18:34 | PN ---
Teaching Attending Note Name of Resident: Altagracia Ruff ATTENDING PHYSICIAN STATEMENT I saw and evaluated the patient. I reviewed the resident's note and discussed the case with the resident. I agree with the resident's findings and plan as documented. SUBJECTIVE: Patient continues to have diarrhea. No nausea or vomiting. OBJECTIVE: Vital Signs Temperature 98.7 F 12/18/18 18:29 Pulse Rate 98 H 12/18/18 18:29 Respiratory Rate 20 12/18/18 18:29 Blood Pressure 136/64 12/18/18 18:29 O2 Sat by Pulse Oximetry (%) 97 12/18/18 01:58 GENERAL: The patient is awake, alert, and fully oriented, in no acute distress. NECK: Trachea midline, full range of motion, supple. LUNGS: Breath sounds equal, clear to auscultation bilaterally. HEART: Regular rate and rhythm, S1, S2 without murmur, rub or gallop. ABDOMEN: Soft, mild tenderness LLQ, nondistended, normoactive bowel sounds. EXTREMITIES: 2+ pulses, warm, well-perfused, no edema. NEUROLOGICAL: Cranial nerves II through XII grossly intact. Normal speech, gait not observed. PSYCH: Normal mood, normal affect. SKIN: Warm, dry, normal turgor, no rashes or lesions noted CBCD WBC 11.2 K/mm3 (4.0-10.0) H 12/18/18 06:30 RBC 3.31 M/mm3 (4.00-5.60) L 12/18/18 06:30 Hgb 10.5 GM/dL (11.7-16.9) L 12/18/18 06:30 Hct 30.4 % (35.4-49) L D 12/18/18 06:30 MCV 91.8 fl (80-96) 12/18/18 06:30 MCHC 34.6 g/dl (32.0-35.9) 12/18/18 06:30 RDW 12.9 % (11.9-15.9) 12/18/18 06:30 Plt Count 255 K/MM3 (134-434) D 12/18/18 06:30 MPV 7.0 fl (7.5-11.1) L 12/18/18 06:30 CMP Sodium 143 mmol/L (136-145) 12/18/18 06:30 Potassium 3.6 mmol/L (3.5-5.1) 12/18/18 06:30 Chloride 110 mmol/L (98-107) H 12/18/18 06:30 Carbon Dioxide 22 mmol/L (21-32) 12/18/18 06:30 Anion Gap 11 MMOL/L (8-16) 12/18/18 06:30 BUN 14 mg/dL (7-18) 12/18/18 06:30 Creatinine 1.0 mg/dL (0.55-1.3) 12/18/18 06:30 Creat Clearance w eGFR > 60 (>60) 12/18/18 06:30 Random Glucose 78 mg/dL (74-106) 12/18/18 06:30 Calcium 7.9 mg/dL (8.5-10.1) L 12/18/18 06:30 Total Bilirubin 1.2 mg/dL (0.2-1) H 12/18/18 06:30 AST 18 U/L (15-37) 12/18/18 06:30 ALT 14 U/L (13-61) 12/18/18 06:30 Alkaline Phosphatase 39 U/L (45-117) L 12/18/18 06:30 Total Protein 4.8 g/dl (6.4-8.2) L 12/18/18 06:30 Albumin 2.2 g/dl (3.4-5.0) L 12/18/18 06:30 Current Medications Generic Name Dose Route Start Last Admin Trade Name Freq PRN Reason Stop Dose Admin Acetaminophen 1,000 mg 12/17/18 18:21 12/18/18 02:36 Ofirmev Injection - IVPB 1,000 mg Q6H PRN Administration PAIN OR FEVER Amlodipine Besylate 2.5 mg 12/18/18 10:00 12/18/18 09:33 Norvasc - PO 2.5 mg DAILY DOUG Administration Atorvastatin Calcium 10 mg 12/18/18 22:00 Lipitor - PO HS DOUG Heparin Sodium (Porcine) 5,000 unit 12/17/18 22:00 12/18/18 14:04 Heparin - SQ 5,000 unit TID DOUG Administration Sodium Chloride 1,000 mls @ 125 mls/hr 12/17/18 17:00 12/18/18 02:37 Normal Saline - IV 125 mls/hr ASDIR DOUG Administration Metronidazole 500 mg in 100 mls @ 100 mls/hr 12/17/18 21:00 12/18/18 14:07 Flagyl 500mg Premixed Ivpb - IVPB 100 mls/hr Q6H-IV DOUG Administration Vancomycin HCl 125 mg 12/18/18 18:00 Vancomycin Oral Solution PO Q6HPO [facility] Home Medications Medication Instructions Recorded Amlodipine Besylate [Norvasc -] 2.5 mg PO DAILY 12/17/18 Lovastatin 10 mg PO DAILY 12/17/18 Microbiology 12/17/18 23:18 Stool Clostridium difficile Antigen (BAKARI) - Final positive 12/17/18 23:18 Stool Clostridium difficile Toxin Assay - Final positive 12/17/18 11:15 Blood - Peripheral Venous Blood Culture - Preliminary NO GROWTH OBTAINED AFTER 24 HOURS, INCUBATION TO CONTINUE FOR 4 DAYS. 12/17/18 11:45 Blood - Peripheral Venous Blood Culture - Preliminary NO GROWTH OBTAINED AFTER 24 HOURS, INCUBATION TO CONTINUE FOR 4 DAYS. 12/17/18 11:15 Urine - Urine Clean Catch Urine Culture - Final ASSESSMENT AND PLAN: This is a 78 year old man with a history of HTN, hyperlipidemia, sciatica who presented to the ED with lower abdominal pain and diarrhea for one week. # Acute C-diff colitis. on po Vanco and IV flagyl , continue IVF # HTN continue Norvasc # Hyperlipidemia on Lipitor continue DVt Px: heparin sq
[2018-12-18] MEDS: VANCOMYCIN 250 MG/5 ML ORAL SOLUTION PO SCH (19:38)
[2018-12-18] MEDS: ATORVASTATIN CA 10 MG TABLET (FP) PO SCH (21:06)
[2018-12-19] MEDS: VANCOMYCIN 250 MG/5 ML ORAL SOLUTION PO SCH ×4 (00:01→18:35)
[2018-12-19] MEDS: SODIUM CHLORIDE 1,000 ML IV SCH ×3 (02:43→23:13)
[2018-12-19] MEDS: HEPARIN NA (PORCINE) 5,000 UNITS/ML 1ML VIAL SQ SCH ×3 (05:48→22:03)
[2018-12-19 08:11] LABS: BASO % 0.6 % (0-2.0); EOS % 5.1 % (0-4.5); HEMATOCRIT 32.1 % (35.4-49); HEMOGLOBIN 11.3 GM/dL (11.7-16.9); LYMPH % 12.7 % (8-40); MCHC 35.1 g/dl (32.0-35.9); MEAN CELL VOLUME 91.1 fl (80-96); MEAN PLT VOLUME 7.2 fl (7.5-11.1); MONO % 8.4 % (3.8-10.2); NEUT % 73.2 % (42.8-82.8); PLATELET COUNT 305 K/MM3 (134-434); RBC 3.53 M/mm3 (4.00-5.60); WHITE BLOOD COUNT 9.8 K/mm3 (4.0-10.0)
--- NOTE | 2018-12-19 08:30 | PN ---
Teaching Attending Note Name of Resident: Altagracia Ruff ATTENDING PHYSICIAN STATEMENT I saw and evaluated the patient. I reviewed the resident's note and discussed the case with the resident. I agree with the resident's findings and plan as documented. SUBJECTIVE: Patient's diarrhea is better, improving. OBJECTIVE: Vital Signs Temperature 98 F 12/19/18 06:25 Pulse Rate 78 12/19/18 06:25 Respiratory Rate 20 12/19/18 06:25 Blood Pressure 135/73 12/19/18 06:25 O2 Sat by Pulse Oximetry (%) 97 12/18/18 01:58 GENERAL: The patient is awake, alert, and fully oriented, in no acute distress. NECK: Trachea midline, full range of motion, supple. LUNGS: Breath sounds equal, clear to auscultation bilaterally. HEART: Regular rate and rhythm, S1, S2 without murmur, rub or gallop. ABDOMEN: Soft, mild tenderness LLQ, nondistended, normoactive bowel sounds. EXTREMITIES: 2+ pulses, warm, well-perfused, no edema. NEUROLOGICAL: Cranial nerves II through XII grossly intact. Normal speech. PSYCH: Normal mood, normal affect. SKIN: Warm, dry, normal turgor, no rashes or lesions noted CBCD WBC 9.8 K/mm3 (4.0-10.0) 12/19/18 07:35 RBC 3.53 M/mm3 (4.00-5.60) L 12/19/18 07:35 Hgb 11.3 GM/dL (11.7-16.9) L 12/19/18 07:35 Hct 32.1 % (35.4-49) L 12/19/18 07:35 MCV 91.1 fl (80-96) 12/19/18 07:35 MCHC 35.1 g/dl (32.0-35.9) 12/19/18 07:35 RDW 13.0 % (11.9-15.9) 12/19/18 07:35 Plt Count 305 K/MM3 (134-434) 12/19/18 07:35 MPV 7.2 fl (7.5-11.1) L 12/19/18 07:35 CMP Sodium 143 mmol/L (136-145) 12/18/18 06:30 Potassium 3.6 mmol/L (3.5-5.1) 12/18/18 06:30 Chloride 110 mmol/L (98-107) H 12/18/18 06:30 Carbon Dioxide 22 mmol/L (21-32) 12/18/18 06:30 Anion Gap 11 MMOL/L (8-16) 12/18/18 06:30 BUN 14 mg/dL (7-18) 12/18/18 06:30 Creatinine 1.0 mg/dL (0.55-1.3) 12/18/18 06:30 Creat Clearance w eGFR > 60 (>60) 12/18/18 06:30 Random Glucose 78 mg/dL (74-106) 12/18/18 06:30 Calcium 7.9 mg/dL (8.5-10.1) L 12/18/18 06:30 Total Bilirubin 1.2 mg/dL (0.2-1) H 12/18/18 06:30 AST 18 U/L (15-37) 12/18/18 06:30 ALT 14 U/L (13-61) 12/18/18 06:30 Alkaline Phosphatase 39 U/L (45-117) L 12/18/18 06:30 Total Protein 4.8 g/dl (6.4-8.2) L 12/18/18 06:30 Albumin 2.2 g/dl (3.4-5.0) L 12/18/18 06:30 Current Medications Generic Name Dose Route Start Last Admin Trade Name Freq PRN Reason Stop Dose Admin Acetaminophen 1,000 mg 12/17/18 18:21 12/18/18 02:36 Ofirmev Injection - IVPB 1,000 mg Q6H PRN Administration PAIN OR FEVER Amlodipine Besylate 2.5 mg 12/18/18 10:00 12/18/18 09:33 Norvasc - PO 2.5 mg DAILY DOUG Administration Atorvastatin Calcium 10 mg 12/18/18 22:00 12/18/18 21:06 Lipitor - PO 10 mg HS DOUG Administration Heparin Sodium (Porcine) 5,000 unit 12/17/18 22:00 12/19/18 05:48 Heparin - SQ 5,000 unit TID DOUG Administration Sodium Chloride 1,000 mls @ 125 mls/hr 12/17/18 17:00 12/19/18 02:43 Normal Saline - IV 125 mls/hr ASDIR DOUG Administration Metronidazole 500 mg in 100 mls @ 100 mls/hr 12/17/18 21:00 12/19/18 02:41 Flagyl 500mg Premixed Ivpb - IVPB 100 mls/hr Q6H-IV DOUG Administration Vancomycin HCl 125 mg 12/18/18 18:00 12/19/18 05:48 Vancomycin Oral Solution PO 125 ml Q6HPO DOUG Administration Home Medications Medication Instructions Recorded Amlodipine Besylate [Norvasc -] 2.5 mg PO DAILY 12/17/18 Lovastatin 10 mg PO DAILY 12/17/18 ASSESSMENT AND PLAN: This is a 78 year old man with a history of HTN, hyperlipidemia, sciatica who presented to the ED with lower abdominal pain and diarrhea for one week. # Acute C-diff colitis. on po Vanco will continue , IV flagyl is discontinued as per GI, continue IVF # HTN continue Norvasc # Hyperlipidemia on Lipitor continue DVt Px: heparin sq
[2018-12-19 09:26] LABS: ANION GAP 10 MMOL/L (8-16); BLOOD UREA NITROGEN 10 mg/dL (7-18); CALCIUM 7.9 mg/dL (8.5-10.1); CHLORIDE 114 mmol/L (98-107); CO2 23 mmol/L (21-32); CREATININE 0.9 mg/dL (0.55-1.3); GLUCOSE,RANDOM 92 mg/dL (74-106); MAGNESIUM 1.8 mg/dL (1.8-2.4); PHOSPHOROUS 1.6 mg/dL (2.5-4.9); POTASSIUM 3.6 mmol/L (3.5-5.1); SODIUM 147 mmol/L (136-145)
[2018-12-19] MEDS ORDERED: MAGNESIUM OXIDE 400 MG TABLET (FP) PO ONE (10:00)
[2018-12-19] MEDS ORDERED: NAPH,MB-DB/K PH,MBDB POWDER PACKET PO ONE (10:00)
[2018-12-19] MEDS: amLODIPine BESYLATE 2.5 MG TABLET (FP) PO SCH (10:59)
--- NOTE | 2018-12-19 13:44 | PN ---
Physical Exam: SUBJECTIVE: Patient seen and examined at bedside this morning. No acute events overnight. Patient reports improvement of diarrhea, but still has multiple episodes of foul, loose, watery stools about every 2 hours. He is able to tolerate clear liquid diet. OBJECTIVE: Vital Signs Temperature 97.1 F L 12/19/18 11:29 Pulse Rate 77 12/19/18 11:29 Respiratory Rate 14 12/19/18 11:29 Blood Pressure 112/70 12/19/18 11:29 O2 Sat by Pulse Oximetry (%) 97 12/18/18 01:58 GENERAL: The patient is awake, alert, and fully oriented, in no acute distress. NECK: Trachea midline, full range of motion, supple. LUNGS: Breath sounds equal, clear to auscultation bilaterally. HEART: Regular rate and rhythm, S1, S2 without murmur, rub or gallop. ABDOMEN: Soft, +LLQ tenderness, nondistended, normoactive bowel sounds. EXTREMITIES: 2+ pulses, warm, well-perfused, no edema. NEUROLOGICAL: Cranial nerves II through XII grossly intact. Normal speech, gait not observed. PSYCH: Normal mood, normal affect. SKIN: Warm, dry, normal turgor, no rashes or lesions noted Laboratory Results - last 24 hr 12/19/18 12/19/18 07:35 07:35 WBC 9.8 RBC 3.53 L Hgb 11.3 L Hct 32.1 L MCV 91.1 MCH 32.0 MCHC 35.1 RDW 13.0 Plt Count 305 MPV 7.2 L Absolute Neuts (auto) 7.2 Neutrophils % 73.2 Lymphocytes % 12.7 Monocytes % 8.4 Eosinophils % 5.1 H Basophils % 0.6 Nucleated RBC % 0 Sodium 147 H Potassium 3.6 Chloride 114 H Carbon Dioxide 23 Anion Gap 10 BUN 10 Creatinine 0.9 Creat Clearance w eGFR > 60 Random Glucose 92 Calcium 7.9 L Phosphorus 1.6 L Magnesium 1.8 Active Medications Generic Name Dose Route Start Last Admin Trade Name Freq PRN Reason Stop Dose Admin Acetaminophen 1,000 mg 12/17/18 18:21 12/18/18 02:36 Ofirmev Injection - IVPB 1,000 mg Q6H PRN Administration PAIN OR FEVER Amlodipine Besylate 2.5 mg 12/18/18 10:00 01/18/19 10:59 Norvasc - PO 2.5 mg DAILY DOUG Administration Atorvastatin Calcium 10 mg 12/18/18 22:00 12/18/18 21:06 Lipitor - PO 10 mg HS DOUG Administration Heparin Sodium (Porcine) 5,000 unit 12/17/18 22:00 12/19/18 05:48 Heparin - SQ 5,000 unit TID DOUG Administration Metronidazole 500 mg in 100 mls @ 100 mls/hr 12/17/18 21:00 12/19/18 10:59 Flagyl 500mg Premixed Ivpb - IVPB 100 mls/hr Q6H-IV DOUG Administration Sodium Chloride 1,000 mls @ 100 mls/hr 12/19/18 08:51 12/19/18 12:07 Normal Saline - IV 100 mls/hr ASDIR DOUG Administration Vancomycin HCl 125 mg 12/18/18 18:00 12/19/18 12:06 Vancomycin Oral Solution PO 125 ml Q6HPO DOUG Administration ASSESSMENT/PLAN: Patient is a 78 year old male with past medical history of HTN and sciatica, presented with a 5-day history of multiple episodes of loose, watery brownish stools. #Diarrhea 2/2 colitis -CT AP: Acute pancolitis is identified. Mild fluid-filled distention of the appendix probably on a reactive basis. Several mildly prominent right lower quadrant mesenteric lymph nodes are seen probably on a reactive basis also. A right inguinal hernia is noted containing nondilated distal ileal bowel loops. No gross small bowel inflammatory changes. -C. diff toxin and antigen positive -stool culture, ova and parasite pending -ID (Dr. Walter) consulted. Recommendations appreciated. -GI (Dr. Dacosta) consulted. REcommendations appreciated. -IV Flagyl 500mg q6h discontinued -PO Vancomycin 125mg q6h day2/14 -Parasites crypto/Giardia Ag -E. histolytica, Isospora, Norovirus, Rotavirus ag #Hypertension -Continue Norvasc 2.5mg daily #Hyperlipidemia -Continue Lipitor 10mg PO HS #FEN -IV NS @100ml/hr -hypokalemia, repleted -Routine bmp monitoring -Low fiber diet (sodium controlled) #Prophylaxis -Heparin 5000units sq tid #Disposition -full code -med surg Visit type - Emergency Visit Emergency Visit: Yes ED Registration Date: 12/17/18 Care time: The patient presented to the Emergency Department on the above date and was hospitalized for further evaluation of their emergent condition. - New Patient This patient is new to me today: No - Critical Care Critical Care patient: No
[2018-12-19] MEDS ORDERED: ACETAMINOPHEN 325 MG TABLET (FP) PO PRN (14:37)
--- NOTE | 2018-12-19 15:22 | PN ---
GI Progress Note Subjective: No acute events C. Diff Antigen/Toxin + Diarrhea and fecal urgency somewhat improved today No rectal bleeding - Objective Vital Signs: Vital Signs Temperature 97.1 F L 12/19/18 11:29 Pulse Rate 77 12/19/18 11:29 Respiratory Rate 14 12/19/18 11:29 Blood Pressure 112/70 12/19/18 11:29 O2 Sat by Pulse Oximetry (%) 97 12/18/18 01:58 Constitutional: Calm Cardiovascular: Yes: Regular Rate and Rhythm, Murmur Respiratory: Yes: CTA Bilaterally Gastrointestinal Inspection: No: Distention ...Auscultate: Yes: Normoactive Bowel Sounds ...Palpate: Yes: Tenderness ...Percussion: No: Tympanitic Edema: No (No LE edema) Neurological: Yes: Alert, Oriented Labs: CBC, BMP 12/19/18 07:35 12/19/18 07:35 INR, PTT INR 1.32 (0.83-1.09) H 12/17/18 11:30 Problem List - Problems (1) Clostridium difficile colitis Assessment/Plan: Cliincially improved from admission: Advance diet Discontinued IV flagyl as this may be contributing to loose BM's Continue PO Vancocin 125mg PO Q 6 hours. Will need total of 14 days therapy Advanced diet Avoid PPI therapy Follow-up remaining stool studies Dr. Snyder will be covering from 5pm tonight through the weekend Code(s): A04.72 - ENTEROCOLITIS D/T CLOSTRIDIUM DIFFICILE, NOT SPCF RECUR
[2018-12-19] MEDS ORDERED: PT OWN MED DRAWER 7, Y5N ONE (15:33)
--- NOTE | 2018-12-19 18:48 | PN ---
Progress Note, Physician History of Present Illness: Still with diarrhea No c/o abdominal pain No fever/ chills WBC WNL - Current Medication List Current Medications: Active Medications Acetaminophen (Tylenol -) 650 mg PO Q6H PRN PRN Reason: Fever Or Pain Amlodipine Besylate (Norvasc -) 2.5 mg PO DAILY [facility] Last Admin: 12/19/18 10:59 Dose: 2.5 mg Atorvastatin Calcium (Lipitor -) 10 mg PO HS [facility] Last Admin: 12/18/18 21:06 Dose: 10 mg Heparin Sodium (Porcine) (Heparin -) 5,000 unit SQ TID [facility] Last Admin: 12/19/18 15:59 Dose: 5,000 unit Sodium Chloride (Normal Saline -) 1,000 mls @ 100 mls/hr IV ASDIR [facility] Last Admin: 12/19/18 12:07 Dose: 100 mls/hr Vancomycin HCl (Vancomycin Oral Solution) 125 mg PO Q6HPO [facility] Last Admin: 12/19/18 18:35 Dose: 125 ml - Objective Vital Signs: Vital Signs Temperature 97.1 F L 12/19/18 11:29 Pulse Rate 77 12/19/18 11:29 Respiratory Rate 14 12/19/18 11:29 Blood Pressure 112/70 12/19/18 11:29 O2 Sat by Pulse Oximetry (%) 97 12/18/18 01:58 Constitutional: Yes: No Distress Cardiovascular: Yes: Regular Rate and Rhythm, S1, S2 Respiratory: Yes: CTA Bilaterally Gastrointestinal: Yes: Normal Bowel Sounds, Soft Labs: CBC, BMP 12/19/18 07:35 12/19/18 07:35 INR, PTT INR 1.32 (0.83-1.09) H 12/17/18 11:30 Assessment/Plan C difficile colitis Fever/ leukocytosis- improved Continue po vancomycin/ IV flagyl
[2018-12-19] MEDS: ATORVASTATIN CA 10 MG TABLET (FP) PO SCH (22:03)
[2018-12-20] MEDS: VANCOMYCIN 250 MG/5 ML ORAL SOLUTION PO SCH ×5 (00:08→23:22)
--- NOTE | 2018-12-20 03:04 | PN ---
Progress Note (short form) - Note Progress Note: Patient is comfortable with no acute distress, no shortness of breath, continues to have diarrhea, went 5x overnight, states less than before. Vital Signs Temperature 97.1 F L 12/19/18 11:29 Pulse Rate 77 12/19/18 11:29 Respiratory Rate 14 12/19/18 11:29 Blood Pressure 112/70 12/19/18 11:29 O2 Sat by Pulse Oximetry (%) 97 12/18/18 01:58 GENERAL: The patient is awake, alert, and fully oriented, in no acute distress. NECK: Trachea midline, full range of motion, supple. LUNGS: Breath sounds equal, clear to auscultation bilaterally. HEART: Regular rate and rhythm, S1, S2 without murmur, rub or gallop. ABDOMEN: Soft, mild tenderness LLQ, nondistended, normoactive bowel sounds. EXTREMITIES: 2+ pulses, warm, well-perfused, no edema. NEUROLOGICAL: Cranial nerves II through XII grossly intact. Normal speech. PSYCH: Normal mood, normal affect. SKIN: Warm, dry, normal turgor, no rashes or lesions noted CBCD WBC 9.8 K/mm3 (4.0-10.0) 12/19/18 07:35 RBC 3.53 M/mm3 (4.00-5.60) L 12/19/18 07:35 Hgb 11.3 GM/dL (11.7-16.9) L 12/19/18 07:35 Hct 32.1 % (35.4-49) L 12/19/18 07:35 MCV 91.1 fl (80-96) 12/19/18 07:35 MCHC 35.1 g/dl (32.0-35.9) 12/19/18 07:35 RDW 13.0 % (11.9-15.9) 12/19/18 07:35 Plt Count 305 K/MM3 (134-434) 12/19/18 07:35 MPV 7.2 fl (7.5-11.1) L 12/19/18 07:35 CMP Sodium 147 mmol/L (136-145) H 12/19/18 07:35 Potassium 3.6 mmol/L (3.5-5.1) 12/19/18 07:35 Chloride 114 mmol/L (98-107) H 12/19/18 07:35 Carbon Dioxide 23 mmol/L (21-32) 12/19/18 07:35 Anion Gap 10 MMOL/L (8-16) 12/19/18 07:35 BUN 10 mg/dL (7-18) 12/19/18 07:35 Creatinine 0.9 mg/dL (0.55-1.3) 12/19/18 07:35 Creat Clearance w eGFR > 60 (>60) 12/19/18 07:35 Random Glucose 92 mg/dL (74-106) 12/19/18 07:35 Calcium 7.9 mg/dL (8.5-10.1) L 12/19/18 07:35 Total Bilirubin 1.2 mg/dL (0.2-1) H 12/18/18 06:30 AST 18 U/L (15-37) 12/18/18 06:30 ALT 14 U/L (13-61) 12/18/18 06:30 Alkaline Phosphatase 39 U/L (45-117) L 12/18/18 06:30 Total Protein 4.8 g/dl (6.4-8.2) L 12/18/18 06:30 Albumin 2.2 g/dl (3.4-5.0) L 12/18/18 06:30 Current Medications Generic Name Dose Route Start Last Admin Trade Name Freq PRN Reason Stop Dose Admin Acetaminophen 650 mg 12/19/18 14:37 Tylenol - PO Q6H PRN Fever Or Pain Amlodipine Besylate 2.5 mg 12/18/18 10:00 12/19/18 10:59 Norvasc - PO 2.5 mg DAILY [facility] Administration Atorvastatin Calcium 10 mg 12/18/18 22:00 12/19/18 22:03 Lipitor - PO 10 mg HS [facility] Administration Heparin Sodium (Porcine) 5,000 unit 12/17/18 22:00 12/19/18 22:03 Heparin - SQ 5,000 unit TID [facility] Administration Sodium Chloride 1,000 mls @ 100 mls/hr 12/19/18 08:51 12/19/18 23:13 Normal Saline - IV 100 mls/hr ASDIR [facility] Administration Vancomycin HCl 125 mg 12/18/18 18:00 12/20/18 00:08 Vancomycin Oral Solution PO 125 ml Q6HPO [facility] Administration Home Medications Medication Instructions Recorded Amlodipine Besylate [Norvasc -] 2.5 mg PO DAILY 12/17/18 Lovastatin 10 mg PO DAILY 12/17/18 A/P: This is a 78 year old man with a history of HTN, hyperlipidemia, sciatica who presented to the ED with lower abdominal pain and diarrhea for one week. # Acute C-diff colitis. on po Vanco will continue , IV flagyl is discontinued as per GI, continue IVF, GI covering for # HTN continue Norvasc # Hyperlipidemia on Lipitor continue DVt Px: heparin sq Visit type - Emergency Visit Emergency Visit: Yes ED Registration Date: 12/17/18 Care time: The patient presented to the Emergency Department on the above date and was hospitalized for further evaluation of their emergent condition. - New Patient This patient is new to me today: No - Critical Care Critical Care patient: No - Discharge Referral Referred to [facility] Med P.C.: No
[2018-12-20] MEDS: HEPARIN NA (PORCINE) 5,000 UNITS/ML 1ML VIAL SQ SCH ×3 (05:53→21:56)
--- NOTE | 2018-12-20 06:59 | PN ---
Progress Note, Physician History of Present Illness: FEELING OF TODAY - ONE LOOSE BM THIS MORNING , LLQ ABD PAIN - NOT NEW ; DOING OK IN GENERAL - Current Medication List Current Medications: Active Medications Acetaminophen (Tylenol -) 650 mg PO Q6H PRN PRN Reason: Fever Or Pain Amlodipine Besylate (Norvasc -) 2.5 mg PO DAILY [facility] Last Admin: 12/19/18 10:59 Dose: 2.5 mg Atorvastatin Calcium (Lipitor -) 10 mg PO HS [facility] Last Admin: 12/19/18 22:03 Dose: 10 mg Heparin Sodium (Porcine) (Heparin -) 5,000 unit SQ TID [facility] Last Admin: 12/20/18 05:53 Dose: 5,000 unit Sodium Chloride (Normal Saline -) 1,000 mls @ 100 mls/hr IV ASDIR [facility] Last Admin: 12/19/18 23:13 Dose: 100 mls/hr Vancomycin HCl (Vancomycin Oral Solution) 125 mg PO Q6HPO [facility] Last Admin: 12/20/18 05:53 Dose: 125 mg - Objective Vital Signs: Vital Signs Temperature 97.1 F L 12/19/18 11:29 Pulse Rate 77 12/19/18 11:29 Respiratory Rate 14 12/19/18 11:29 Blood Pressure 112/70 12/19/18 11:29 O2 Sat by Pulse Oximetry (%) 97 12/18/18 01:58 Constitutional: Yes: Well Nourished, No Distress, Calm Cardiovascular: Yes: WNL, Regular Rate and Rhythm Respiratory: Yes: WNL, Regular, CTA Bilaterally Gastrointestinal: Yes: WNL, Normal Bowel Sounds, Other (TENDER LEFT LOWER QUANDRANT ; NO REBOUND OR GUARDING , NML BS) Musculoskeletal: Yes: WNL Extremities: Yes: WNL Labs: INR, PTT INR 1.32 (0.83-1.09) H 12/17/18 11:30 Problem List - Problems (1) Clostridium difficile colitis Assessment/Plan: C/W PO VANCO Q6 PER ID LOW RESIDUE LACTOSE FREE DIET F/U CULTURES AM CBC HEMORRHOID CREAM ORDERED FOR SYMPTOMATIC RELIEF Code(s): A04.72 - ENTEROCOLITIS D/T CLOSTRIDIUM DIFFICILE, NOT SPCF RECUR (2) Pancolitis Code(s): K51.00 - ULCERATIVE (CHRONIC) PANCOLITIS WITHOUT COMPLICATIONS
[2018-12-20 07:25] LABS: BASO % 0.6 % (0-2.0); EOS % 4.3 % (0-4.5); HEMATOCRIT 31.4 % (35.4-49); LYMPH % 14.2 % (8-40); MCH 31.7 pg (25.7-33.7); MEAN CELL VOLUME 90.5 fl (80-96); MEAN PLT VOLUME 7.3 fl (7.5-11.1); MONO % 10.1 % (3.8-10.2); NEUT % 70.8 % (42.8-82.8); PLATELET COUNT 293 K/MM3 (134-434); RBC 3.47 M/mm3 (4.00-5.60); RDW 12.7 % (11.9-15.9); WHITE BLOOD COUNT 9.7 K/mm3 (4.0-10.0)
[2018-12-20 07:36] LABS: ANION GAP 8 MMOL/L (8-16); BLOOD UREA NITROGEN 7 mg/dL (7-18); CHLORIDE 113 mmol/L (98-107); CO2 24 mmol/L (21-32); CREATININE 0.8 mg/dL (0.55-1.3); GLUCOSE,RANDOM 103 mg/dL (74-106); MAGNESIUM 1.6 mg/dL (1.8-2.4); POTASSIUM 3.4 mmol/L (3.5-5.1); SODIUM 145 mmol/L (136-145)
[2018-12-20] MEDS: amLODIPine BESYLATE 2.5 MG TABLET (FP) PO SCH (09:57)
[2018-12-20] MEDS: SODIUM CHLORIDE 1,000 ML IV SCH ×2 (09:59→20:13)
--- NOTE | 2018-12-20 12:45 | PN ---
Progress Note, Physician History of Present Illness: Still with diarrhea Less abdominal pain Seated in bed eating lunch No fever/ chills Temps down Afebrile WBC WNL Stool c/s , BC (-) - Current Medication List Current Medications: Active Medications Acetaminophen (Tylenol -) 650 mg PO Q6H PRN PRN Reason: Fever Or Pain Amlodipine Besylate (Norvasc -) 2.5 mg PO DAILY [facility] Last Admin: 12/20/18 09:57 Dose: 2.5 mg Atorvastatin Calcium (Lipitor -) 10 mg PO HS [facility] Last Admin: 12/19/18 22:03 Dose: 10 mg Heparin Sodium (Porcine) (Heparin -) 5,000 unit SQ TID [facility] Last Admin: 12/20/18 05:53 Dose: 5,000 unit Sodium Chloride (Normal Saline -) 1,000 mls @ 100 mls/hr IV ASDIR [facility] Last Admin: 12/20/18 09:59 Dose: 100 mls/hr Vancomycin HCl (Vancomycin Oral Solution) 125 mg PO Q6HPO [facility] Last Admin: 12/20/18 05:53 Dose: 125 mg - Objective Vital Signs: Vital Signs Temperature 98.3 F 12/20/18 07:02 Pulse Rate 78 12/20/18 07:02 Respiratory Rate 15 12/20/18 07:02 Blood Pressure 127/96 12/20/18 07:02 O2 Sat by Pulse Oximetry (%) 97 12/18/18 01:58 Constitutional: Yes: No Distress Eyes: Yes: Conjunctiva Clear Cardiovascular: Yes: Regular Rate and Rhythm, S1, S2 Respiratory: Yes: CTA Bilaterally Gastrointestinal: Yes: Normal Bowel Sounds, Soft, Tenderness, Other (+ LLQ tenderness) Edema: No Labs: CBC, BMP 12/20/18 06:30 12/20/18 06:00 INR, PTT INR 1.32 (0.83-1.09) H 12/17/18 11:30 Assessment/Plan C difficile colitis Fever/ leukocytosis- resolved Continue po vancomycin Complete 10d course
[2018-12-20] MEDS: BENZOCAINE 28 GM HEMORRHOIDAL OINTMENT PR SCH (15:22)
[2018-12-20] MEDS ORDERED: PT OWN MED DRAWER 7, Y5N ONE (17:23)
[2018-12-20] MEDS: ATORVASTATIN CA 10 MG TABLET (FP) PO SCH (21:57)
[2018-12-21] MEDS: HEPARIN NA (PORCINE) 5,000 UNITS/ML 1ML VIAL SQ SCH ×3 (06:18→22:19)
[2018-12-21] MEDS: VANCOMYCIN 250 MG/5 ML ORAL SOLUTION PO SCH ×3 (06:18→17:10)
[2018-12-21] MEDS: SODIUM CHLORIDE 1,000 ML IV SCH ×2 (06:30→10:32)
--- NOTE | 2018-12-21 07:27 | PN ---
Progress Note, Physician History of Present Illness: FEELING OK TODAY -NO NEW COMPLAINTS - Current Medication List Current Medications: Active Medications Acetaminophen (Tylenol -) 650 mg PO Q6H PRN PRN Reason: Fever Or Pain Amlodipine Besylate (Norvasc -) 2.5 mg PO DAILY [facility] Last Admin: 12/20/18 09:57 Dose: 2.5 mg Atorvastatin Calcium (Lipitor -) 10 mg PO HS [facility] Last Admin: 12/20/18 21:57 Dose: 10 mg Benzocaine (Americaine Ointment -) 1 applic [place] DAILY [facility] Last Admin: 12/20/18 15:22 Dose: 1 applic Heparin Sodium (Porcine) (Heparin -) 5,000 unit SQ TID [facility] Last Admin: 12/21/18 06:18 Dose: 5,000 unit Sodium Chloride (Normal Saline -) 1,000 mls @ 100 mls/hr IV ASDIR [facility] Last Admin: 12/21/18 06:30 Dose: 100 mls/hr Vancomycin HCl (Vancomycin Oral Solution) 125 mg PO Q6HPO [facility] Last Admin: 12/21/18 06:18 Dose: 125 mg - Objective Vital Signs: Vital Signs Temperature 98.2 F 12/21/18 06:14 Pulse Rate 98 H 12/20/18 21:49 Respiratory Rate 18 12/21/18 06:14 Blood Pressure 155/88 12/21/18 06:14 O2 Sat by Pulse Oximetry (%) 97 12/18/18 01:58 Constitutional: Yes: Well Nourished, No Distress, Calm Eyes: Yes: WNL HENT: Yes: WNL Neck: Yes: WNL Cardiovascular: Yes: WNL, Regular Rate and Rhythm Respiratory: Yes: WNL, Regular, CTA Bilaterally Gastrointestinal: Yes: WNL, Normal Bowel Sounds, Soft Musculoskeletal: Yes: WNL Extremities: Yes: WNL Edema: No Labs: CBC, BMP 12/20/18 06:30 12/20/18 06:00 INR, PTT INR 1.32 (0.83-1.09) H 12/17/18 11:30 Problem List - Problems (1) Clostridium difficile colitis Assessment/Plan: C/W PO VANCO Q6 PER ID LOW RESIDUE LACTOSE FREE DIET F/U CULTURES HEMORRHOID CREAM ORDERED FOR SYMPTOMATIC RELIEF Code(s): A04.72 - ENTEROCOLITIS D/T CLOSTRIDIUM DIFFICILE, NOT SPCF RECUR (2) Pancolitis Code(s): K51.00 - ULCERATIVE (CHRONIC) PANCOLITIS WITHOUT COMPLICATIONS
--- NOTE | 2018-12-21 09:38 | PN ---
Progress Note, Physician - Current Medication List Current Medications: Active Medications Acetaminophen (Tylenol -) 650 mg PO Q6H PRN PRN Reason: Fever Or Pain Amlodipine Besylate (Norvasc -) 2.5 mg PO DAILY [facility] Last Admin: 12/20/18 09:57 Dose: 2.5 mg Atorvastatin Calcium (Lipitor -) 10 mg PO HS [facility] Last Admin: 12/20/18 21:57 Dose: 10 mg Benzocaine (Americaine Ointment -) 1 applic [place] DAILY [facility] Last Admin: 12/20/18 15:22 Dose: 1 applic Heparin Sodium (Porcine) (Heparin -) 5,000 unit SQ TID [facility] Last Admin: 12/21/18 06:18 Dose: 5,000 unit Sodium Chloride (Normal Saline -) 1,000 mls @ 100 mls/hr IV ASDIR [facility] Last Admin: 12/21/18 06:30 Dose: 100 mls/hr Vancomycin HCl (Vancomycin Oral Solution) 125 mg PO Q6HPO [facility] Last Admin: 12/21/18 06:18 Dose: 125 mg - Objective Vital Signs: Vital Signs Temperature 98.2 F 12/21/18 06:14 Pulse Rate 98 H 12/20/18 21:49 Respiratory Rate 18 12/21/18 06:14 Blood Pressure 155/88 12/21/18 06:14 O2 Sat by Pulse Oximetry (%) 97 12/18/18 01:58 Labs: CBC, BMP 12/20/18 06:30 12/20/18 06:00 INR, PTT INR 1.32 (0.83-1.09) H 12/17/18 11:30 Problem List - Problems (1) Clostridium difficile colitis Assessment/Plan: -CT AP: Acute pancolitis is identified. Mild fluid-filled distention of the appendix probably on a reactive basis. Several mildly prominent right lower quadrant mesenteric lymph nodes are seen probably on a reactive basis also. A right inguinal hernia is noted containing nondilated distal ileal bowel loops. No gross small bowel inflammatory changes. -C. diff toxin and antigen positive -stool culture, ova and parasite pending -ID (Dr. Walter) consulted. Recommendations appreciated. -GI (Dr. Dacosta) consulted. REcommendations appreciated. -IV Flagyl 500mg q6h discontinued -PO Vancomycin 125mg q6h day2/14 -Parasites crypto/Giardia Ag -E. histolytica, Isospora, Norovirus, Rotavirus a Code(s): A04.72 - ENTEROCOLITIS D/T CLOSTRIDIUM DIFFICILE, NOT SPCF RECUR (2) Pancolitis Assessment/Plan: -CT AP: Acute pancolitis is identified. Mild fluid-filled distention of the appendix probably on a reactive basis. Several mildly prominent right lower quadrant mesenteric lymph nodes are seen probably on a reactive basis also. A right inguinal hernia is noted containing nondilated distal ileal bowel loops. No gross small bowel inflammatory changes. -C. diff toxin and antigen positive -stool culture, ova and parasite pending -ID (Dr. Walter) consulted. Recommendations appreciated. -GI (Dr. Dacosta) consulted. REcommendations appreciated. -IV Flagyl 500mg q6h discontinued -PO Vancomycin 125mg q6h day2/14 -Parasites crypto/Giardia Ag -E. histolytica, Isospora, Norovirus, Rotavirus a Code(s): K51.00 - ULCERATIVE (CHRONIC) PANCOLITIS WITHOUT COMPLICATIONS (3) HTN (hypertension), benign Assessment/Plan: stop amlodipine start ramipril 5mg daily Code(s): I10 - ESSENTIAL (PRIMARY) HYPERTENSION (4) Dyslipidemia (high LDL; low HDL) Assessment/Plan: stable c/w statin Code(s): E78.5 - HYPERLIPIDEMIA, UNSPECIFIED (5) Hypomagnesemia Assessment/Plan: replenish magnesium correct potassium Code(s): E83.42 - HYPOMAGNESEMIA Assessment/Plan #Diarrhea 2/2 colitis g #Hypertension -Continue Norvasc 2.5mg daily #Hyperlipidemia -Continue Lipitor 10mg PO HS #FEN -IV NS @100ml/hr -hypokalemia, repleted -Routine bmp monitoring -Low fiber diet (sodium controlled) #Prophylaxis -Heparin 5000units sq tid #Disposition -full code -med surg
[2018-12-21] MEDS: BENZOCAINE 28 GM HEMORRHOIDAL OINTMENT PR SCH (10:31)
[2018-12-21] MEDS: RAMIPRIL 5 MG CAPSULE (FP) PO SCH (10:31)
[2018-12-21] MEDS: ATORVASTATIN CA 10 MG TABLET (FP) PO SCH (22:15)
[2018-12-22] MEDS: VANCOMYCIN 250 MG/5 ML ORAL SOLUTION PO SCH ×3 (01:03→13:29)
[2018-12-22] MEDS: HEPARIN NA (PORCINE) 5,000 UNITS/ML 1ML VIAL SQ SCH ×2 (06:26→13:30)
[2018-12-22 06:28] VITALS: TEMP 98.7
--- NOTE | 2018-12-22 07:47 | PN ---
Progress Note, Physician History of Present Illness: FEELING OK TODAY -NO NEW COMPLAINTS; less bowel movements ; denies abd pain / n/ v - Current Medication List Current Medications: Active Medications Acetaminophen (Tylenol -) 650 mg PO Q6H PRN PRN Reason: Fever Or Pain Atorvastatin Calcium (Lipitor -) 10 mg PO HS [facility] Last Admin: 12/21/18 22:15 Dose: 10 mg Benzocaine (Americaine Ointment -) 1 applic [place] DAILY [facility] Last Admin: 12/21/18 10:31 Dose: 1 applic Heparin Sodium (Porcine) (Heparin -) 5,000 unit SQ TID [facility] Last Admin: 12/22/18 06:26 Dose: 5,000 unit Sodium Chloride (Normal Saline -) 1,000 mls @ 100 mls/hr IV ASDIR [facility] Last Admin: 12/21/18 10:32 Dose: Not Given Ramipril (Altace -) 5 mg PO DAILY [facility] Last Admin: 12/21/18 10:31 Dose: 5 mg Vancomycin HCl (Vancomycin Oral Solution) 125 mg PO Q6HPO [facility] Last Admin: 12/22/18 06:26 Dose: 125 mg - Objective Vital Signs: Vital Signs Temperature 98.7 F 12/22/18 06:00 Pulse Rate 90 12/22/18 06:00 Respiratory Rate 20 12/22/18 06:00 Blood Pressure 152/52 L 12/22/18 06:00 O2 Sat by Pulse Oximetry (%) 97 12/18/18 01:58 Constitutional: Yes: Well Nourished, No Distress Eyes: Yes: WNL HENT: Yes: WNL Neck: Yes: WNL, Supple Cardiovascular: Yes: WNL, Regular Rate and Rhythm Respiratory: Yes: WNL, Regular, CTA Bilaterally Gastrointestinal: Yes: WNL, Normal Bowel Sounds, Soft Musculoskeletal: Yes: WNL Extremities: Yes: WNL Edema: No Labs: CBC, BMP 12/20/18 06:30 12/20/18 06:00 INR, PTT INR 1.32 (0.83-1.09) H 12/17/18 11:30 Problem List - Problems (1) Clostridium difficile colitis Assessment/Plan: C/W PO VANCO Q6 PER ID LOW RESIDUE LACTOSE FREE DIET F/U final CULTURES HEMORRHOID CREAM ORDERED FOR SYMPTOMATIC RELIEF DC PLANNING PER PRIMARY MEDICAL TEAM Code(s): A04.72 - ENTEROCOLITIS D/T CLOSTRIDIUM DIFFICILE, NOT SPCF RECUR (2) Pancolitis Code(s): K51.00 - ULCERATIVE (CHRONIC) PANCOLITIS WITHOUT COMPLICATIONS
--- NOTE | 2018-12-22 08:17 | PN ---
Progress Note, Physician Chief Complaint: No c/o diarrhea History of Present Illness: 8 y/o male with PMH of HTN, sciatica presents to the ED with multiple episodes of diarrhea for the past week. Patient states that for the past week he has been having multiple episodes of loose, watery yellow stool with mucus, elevated TWBC CT abd shows crook collitis - Current Medication List Current Medications: Active Medications Acetaminophen (Tylenol -) 650 mg PO Q6H PRN PRN Reason: Fever Or Pain Atorvastatin Calcium (Lipitor -) 10 mg PO HS [facility] Last Admin: 12/21/18 22:15 Dose: 10 mg Benzocaine (Americaine Ointment -) 1 applic [place] DAILY [facility] Last Admin: 12/21/18 10:31 Dose: 1 applic Heparin Sodium (Porcine) (Heparin -) 5,000 unit SQ TID [facility] Last Admin: 12/22/18 06:26 Dose: 5,000 unit Sodium Chloride (Normal Saline -) 1,000 mls @ 100 mls/hr IV ASDIR [facility] Last Admin: 12/21/18 10:32 Dose: Not Given Ramipril (Altace -) 5 mg PO DAILY [facility] Last Admin: 12/21/18 10:31 Dose: 5 mg Vancomycin HCl (Vancomycin Oral Solution) 125 mg PO Q6HPO [facility] Last Admin: 12/22/18 06:26 Dose: 125 mg - Objective Vital Signs: Vital Signs Temperature 98.7 F 12/22/18 06:00 Pulse Rate 90 12/22/18 06:00 Respiratory Rate 20 12/22/18 06:00 Blood Pressure 152/52 L 12/22/18 06:00 O2 Sat by Pulse Oximetry (%) 97 12/18/18 01:58 Constitutional: Yes: Well Nourished, No Distress, Calm Eyes: Yes: Conjunctiva Clear, EOM Intact HENT: Yes: Atraumatic, Normocephalic Neck: Yes: Supple, Trachea Midline Cardiovascular: Yes: Regular Rate and Rhythm, S1, S2. No: JVD, Murmur, Rub Respiratory: Yes: Regular, CTA Bilaterally Gastrointestinal: Yes: Normal Bowel Sounds, Soft Musculoskeletal: No: Back Pain, Joint Stiffness Edema: No Peripheral Pulses: Left Doralis Pedis: 1+, Right Dorsalis Pedis: 1+ Neurological: Yes: Alert, Oriented ...Motor Strength: WNL, LUE, LLE, RUE, RLE Labs: CBC, BMP 12/20/18 06:30 12/20/18 06:00 INR, PTT INR 1.32 (0.83-1.09) H 12/17/18 11:30 Problem List - Problems (1) Clostridium difficile colitis Assessment/Plan: On PO Vancomycin 125 mg q 6 diarrhea improved Code(s): A04.72 - ENTEROCOLITIS D/T CLOSTRIDIUM DIFFICILE, NOT SPCF RECUR (2) HTN (hypertension), benign Assessment/Plan: Well controlled Code(s): I10 - ESSENTIAL (PRIMARY) HYPERTENSION (3) Pancolitis Assessment/Plan: Due to C diff Code(s): K51.00 - ULCERATIVE (CHRONIC) PANCOLITIS WITHOUT COMPLICATIONS (4) Dyslipidemia (high LDL; low HDL) Assessment/Plan: On statin Code(s): E78.5 - HYPERLIPIDEMIA, UNSPECIFIED
[2018-12-22] MEDS: RAMIPRIL 5 MG CAPSULE (FP) PO SCH (09:48)
[2018-12-22] MEDS: BENZOCAINE 28 GM HEMORRHOIDAL OINTMENT PR SCH (09:48)
[2018-12-22 10:12] LABS: ENTAMOEBA HISTOLYTICA ANTIBODY Negative (Negative)
[2018-12-22 10:16] LABS: BASO % 0.6 % (0-2.0); HEMATOCRIT 33.8 % (35.4-49); LYMPH % 13.2 % (8-40); MCH 32.1 pg (25.7-33.7); MCHC 35.5 g/dl (32.0-35.9); MEAN CELL VOLUME 90.6 fl (80-96); MEAN PLT VOLUME 7.1 fl (7.5-11.1); MONO % 8.1 % (3.8-10.2); NEUT % 75.1 % (42.8-82.8); PLATELET COUNT 416 K/MM3 (134-434); RBC 3.73 M/mm3 (4.00-5.60); RDW 13.1 % (11.9-15.9); WHITE BLOOD COUNT 10.3 K/mm3 (4.0-10.0)
[2018-12-22 10:40] LABS: ANION GAP 7 MMOL/L (8-16); BLOOD UREA NITROGEN 7 mg/dL (7-18); CHLORIDE 107 mmol/L (98-107); CO2 29 mmol/L (21-32); CREATININE 0.9 mg/dL (0.55-1.3); GLUCOSE,RANDOM 142 mg/dL (74-106); POTASSIUM 3.7 mmol/L (3.5-5.1); SODIUM 143 mmol/L (136-145)
[2018-12-22 12:42] LABS: ACANTHOCYTES 0; ANISOCYTOSIS 0; HELMET CELLS 0; HOWELL-JOLLY BODIES 0; MACROCYTOSIS 0; OVALOCYTE 0; PLATELET ESTIMATE NORMAL; ROULEAU 0; SICKELED CELLS 0; TARGET CELLS 0; TEAR DROP CELLS 0; TOXIC GRANULATION 0
--- NOTE | 2018-12-22 12:51 | DS ---
Physical Examination Vital Signs: Vital Signs Temperature 98.7 F 12/22/18 06:00 Pulse Rate 90 12/22/18 06:00 Respiratory Rate 20 12/22/18 06:00 Blood Pressure 152/52 L 12/22/18 06:00 O2 Sat by Pulse Oximetry (%) 97 12/18/18 01:58 Constitutional: Yes: Well Nourished, No Distress, Calm Eyes: Yes: Conjunctiva Clear, EOM Intact HENT: Yes: Atraumatic, Normocephalic Neck: Yes: Supple, Trachea Midline Cardiovascular: Yes: Regular Rate and Rhythm, S1, S2. No: JVD, Murmur, Rub Respiratory: Yes: Regular, CTA Bilaterally Gastrointestinal: Yes: Normal Bowel Sounds, Soft Musculoskeletal: No: Back Pain, Joint Stiffness Edema: No Peripheral Pulses: Left Doralis Pedis: 1+, Right Dorsalis Pedis: 1+ Neurological: Yes: Alert, Oriented ...Motor Strength: WNL, LUE, LLE, RUE, RLE Labs: CBC, BMP 12/22/18 09:50 12/22/18 09:50 Discharge Summary Reason For Visit: COLITIS Current Active Problems Clostridium difficile colitis (Acute) Dyslipidemia (high LDL; low HDL) (Acute) HTN (hypertension), benign (Acute) Hypomagnesemia (Acute) Pancolitis (Acute) Hospital Course: 78 y/o male with PMH of HTN, sciatica presents to the ED with multiple episodes of diarrhea for the past week. Patient states that for the past week he has been having multiple episodes of loose, watery yellow stool with mucus, elevated TWBC CT abd shows crook collitis, C diff + , improved on Po Vancomycin Time spent 32 minutes Condition: Stable - Instructions Diet, Activity, Other Instructions: Please visit PMD if fever abd pain or recurrence of diarrhea Referrals: Tala Devine [Primary Care Provider] - 1 Week - Home Medications Comprehensive Discharge Medication List: Ambulatory Orders Amlodipine Besylate [Norvasc -] 2.5 mg PO DAILY 12/17/18 Lovastatin 10 mg PO DAILY 12/17/18 Benzocaine Ointment [Americaine Ointment -] 1 applic [place] DAILY #1 tube 12/22/18 Vancomycin Oral Solution 125 mg PO Q6HPO 10 Days ml 12/22/18
[2018-12-22 13:31] VITALS: BP 146/81; PULSE 78
== END 2018-12-22 15:21 | disposition home or self-care (01) | DRG 372 ==
LOC: JER 11:09 → JERBED 17:03 → J8W 12-18 01:46
PROVIDERS: ADMIT Internal Medicine; ATTEND Internal Medicine
DX: A04.72 Enterocolitis due to Clostridium difficile, not specified as recurrent (principal); K51.00 Ulcerative (chronic) pancolitis without complications; I10 Essential (primary) hypertension; D72.829 Elevated white blood cell count, unspecified; R00.0 Tachycardia, unspecified; E83.42 Hypomagnesemia; M54.30 Sciatica, unspecified side; E78.5 Hyperlipidemia, unspecified; E87.6 Hypokalemia; R50.9 Fever, unspecified
CPT/HCPCS: 36415; 74177-TC; 80048; 80053; 81003; 81015; 82150; 83605; 83690; 83735; 84100; 85025; 85610; 85651; 86753; 87040; 87045; 87046; 87086; 87177; 87207; 87209; 87324; 87328; 87329; 87425; 87427; 87449; 87798; 93005; 93010; 99284-25; J0131; J1644; J7030; Q9967

== ENCOUNTER 2019-04-03 11:48 | Emergency (ER) | payer OTHER ==
[2019-04-03 11:59] VITALS: BMI 22.2
[2019-04-03] MEDS ORDERED: SODIUM CHLORIDE 1,000 ML IV STA (12:30)
--- NOTE | 2019-04-03 12:44 | PDOC ---
History of Present Illness <Marilin Murray - Last Filed: 04/03/19 14:07> - General History Source: Patient Exam Limitations: No Limitations - History of Present Illness Initial Comments: 04/03/19 12:36 79 y/o male with PMH of HTN, sciatica presents to the ED with complaints of diarrhea. Patient states that he has been having ongoing diarrhea for the past 5 days. Of note, patient was here back in December with similar complaints was found to have C diff at the time and was placed on a PO vanco taper that he finished up in January. He has been following up with Dr. Louie, last saw her a few weeks ago and everything was normal. She was waiting to [facility] a colonoscopy in May. He denies any recent travel or any sick contacts- he thinks he may have eaten some weird cinnamon bread on saturday and the pain started slightly after. he denies any blood in his diarrhea nor has he had any nausea or vomiting. However he does endorse abdominal pain- states that when he doesn't move his bowels the pain builds up and it is about a 7/10 at its worst. He has been having about 4-5 explosive bowel movements everyday for the past 5 days. 04/03/19 12:46 Severity: moderate Associated Symptoms: reports: loss of appetite. denies: chest pain, cough <Kezia Miramontes - Last Filed: 04/03/19 15:26> - General Chief Complaint: Diarrhea Stated Complaint: SENT BY PCP Time Seen by Provider: 04/03/19 12:17 Past History <Marilin Murray - Last Filed: 04/03/19 14:07> - Travel Traveled outside of the country in the last 30 days: No Close contact w/someone who was outside of country & ill: No - Past Medical History COPD: No HTN: Yes Hypercholesterolemia: Yes - Surgical History Abdominal Surgery: Yes (hernia) GI Surgery: No Orthopedic Surgery: Yes (right total knee replacement) - Immunization History Immunization Up to Date: No - Suicide/Smoking/Psychosocial Hx Smoking History: Never smoked Have you smoked in the past 12 months: No Information on smoking cessation initiated: No Hx Alcohol Use: No Drug/Substance Use Hx: No <Kezia Miramontes - Last Filed: 04/03/19 15:26> - Past Medical History Allergies/Adverse Reactions: Allergies Allergy/AdvReac Type Severity Reaction Status Date / Time No Known Allergies Allergy Verified 04/03/19 11:59 Home Medications: Ambulatory Orders Amlodipine Besylate [Norvasc -] 2.5 mg PO DAILY 12/17/18 Lovastatin 10 mg PO DAILY 12/17/18 Benzocaine Ointment [Americaine Ointment -] 1 applic [place] DAILY #1 tube 12/22/18 Vancomycin Oral Solution 125 mg PO Q6HPO 10 Days ml 12/22/18 metroNIDAZOLE [Flagyl -] 500 mg PO TID 7 Days #21 tablet 12/22/18 Review of Systems - Review of Systems Able to Perform ROS?: Yes Is the patient limited Armenian proficient: No Constitutional: Yes: Loss of Appetite HEENTM: No: Eye Pain Respiratory: No: Cough, Shortness of Breath Cardiac (ROS): No: Chest Pain ABD/GI: Yes: Diarrhea, Abdominal cramping : No: Dysuria, Discharge Neurological: No: Headache, Numbness <Kezia Miramontes - Last Filed: 04/03/19 15:26> *Physical Exam - Vital Signs Last Vital Signs Temp Pulse Resp BP Pulse Ox 87 16 120/66 100 04/03/19 11:54 04/03/19 11:54 04/03/19 11:54 04/03/19 11:54 <Marilin Murray - Last Filed: 04/03/19 14:07> - Vital Signs Last Vital Signs Temp Pulse Resp BP Pulse Ox 87 16 120/66 100 04/03/19 11:54 04/03/19 11:54 04/03/19 11:54 04/03/19 11:54 - Physical Exam General Appearance: Yes: Nourished Neck: positive: Normal Thyroid Respiratory/Chest: positive: Lungs Clear, Normal Breath Sounds Cardiovascular: positive: Regular Rhythm, Regular Rate, S1, S2 Gastrointestinal/Abdominal: positive: Tender (mid abdominal tenderness ), Flat, Soft, Increased Bowel Sounds Musculoskeletal: negative: CVA Tenderness Extremity: positive: Normal Inspection Neurologic: positive: Fully Oriented, Alert <Kezia Miramontes - Last Filed: 04/03/19 15:26> ED Treatment Course - LABORATORY CBC & Chemistry Diagram: 04/03/19 12:38 04/03/19 12:39 - ADDITIONAL ORDERS Additional order review: Laboratory Results 04/03/19 04/03/19 12:39 12:39 PTT (Actin FS) 29.3 Sodium 137 Potassium 3.9 Chloride 105 Carbon Dioxide 25 Anion Gap 7 L BUN 21 H Creatinine 1.3 Creat Clearance w eGFR 53.12 Random Glucose 121 H Calcium 9.8 Total Bilirubin 0.4 AST 11 L ALT 13 Alkaline Phosphatase 46 Creatine Kinase 37 Troponin I < 0.02 Total Protein 6.5 Albumin 3.2 L Lipase 50 L 04/03/19 12:38 RBC 4.52 MCV 90.8 MCHC 32.7 RDW 13.2 MPV 7.3 L Neutrophils % 78.3 Lymphocytes % 8.2 D Monocytes % 12.2 H Eosinophils % 1.0 Basophils % 0.3 - Medications Given in the ED: ED Medications Discontinued Medications Generic Name Dose Route Start Last Admin Trade Name Freq PRN Reason Stop Dose Admin Sodium Chloride 1,000 mls @ 1,000 mls/hr 04/03/19 12:30 04/03/19 12:39 Normal Saline - IV 04/03/19 13:29 1,000 mls/hr ASDIR STA Administration <Marilin Murray - Last Filed: 04/03/19 14:07> - LABORATORY CBC & Chemistry Diagram: 04/03/19 12:38 04/03/19 12:39 <Kezia Miramontes - Last Filed: 04/03/19 15:26> Medical Decision Making - Medical Decision Making 04/03/19 14:07 patient given 1L IV normal saline for hydration. <Marilin Murray - Last Filed: 04/03/19 14:07> - Medical Decision Making 04/03/19 12:49 cbc/cmp/lipase fluids/pepcid/reassess <Kezia Miramontes - Last Filed: 04/03/19 15:26> *DC/Admit/Observation/Transfer <Marilin Murray - Last Filed: 04/03/19 14:07> - Attestations Physician Attestion: 04/03/19 15:26 kezia miramontes <Kezia Miramontes - Last Filed: 04/03/19 15:26> Diagnosis at time of Disposition: Colitis - Discharge Dispostion Disposition: HOME Condition at time of disposition: Stable - Referrals Referrals: Tala Devine [Primary Care Provider] - Zeinab Louie DO [Staff Physician] - - Patient Instructions Printed Discharge Instructions: DI for Colitis Additional Instructions: please follow up with your [facility] doctor within one week please follow up with dr. louie for your appointment on friday 04/06 at 3;45 if you have any fevers or worsening abdominal pains please return to the emergency room immediately please keep yourself hydrated with fluids such as gatorade and eat bland foods
[2019-04-03 12:55] LABS: BASO % 0.3 % (0-2.0); HEMATOCRIT 41.1 % (35.4-49); HEMOGLOBIN 13.4 GM/dL (11.7-16.9); LYMPH % 8.2 % (8-40); MCH 29.7 pg (25.7-33.7); MCHC 32.7 g/dl (32.0-35.9); MEAN CELL VOLUME 90.8 fl (80-96); MEAN PLT VOLUME 7.3 fl (7.5-11.1); MONO % 12.2 % (3.8-10.2); NEUT % 78.3 % (42.8-82.8); PLATELET COUNT 331 K/MM3 (134-434); RBC 4.52 M/mm3 (4.00-5.60); RDW 13.2 % (11.9-15.9)
[2019-04-03 13:16] LABS: ALBUMIN 3.2 g/dl (3.4-5.0); ALK PHOS 46 U/L (45-117); ANION GAP 7 MMOL/L (8-16); BILIRUBIN,TOTAL 0.4 mg/dL (0.2-1); BLOOD UREA NITROGEN 21 mg/dL (7-18); CALCIUM 9.8 mg/dL (8.5-10.1); CHLORIDE 105 mmol/L (98-107); CO2 25 mmol/L (21-32); CREATININE 1.3 mg/dL (0.55-1.3); GLUCOSE,RANDOM 121 mg/dL (74-106); POTASSIUM 3.9 mmol/L (3.5-5.1); SGOT/AST 11 U/L (15-37); SGPT/ALT 13 U/L (13-61); SODIUM 137 mmol/L (136-145); TOT PROT 6.5 g/dl (6.4-8.2)
[2019-04-03 13:36] LABS: LIPASE 50 U/L (73-393)
[2019-04-03 15:08] VITALS: BP 129/75; PULSE 88; TEMP 98.5
--- NOTE | 2019-04-04 09:42 | EKG ---
Test Reason : Blood Pressure : / mmHG Vent. Rate : 085 BPM Atrial Rate : 085 BPM P-R Int : 134 ms QRS Dur : 102 ms QT Int : 352 ms P-R-T Axes : 042 -22 015 degrees QTc Int : 418 ms SINUS RHYTHM WITH SINUS ARRHYTHMIA WITH OCCASIONAL PREMATURE VENTRICULAR COMPLEXES NONSPECIFIC T WAVE ABNORMALITY ABNORMAL ECG WHEN COMPARED WITH ECG OF 17-DEC-2018 19:17, PREMATURE VENTRICULAR COMPLEXES ARE NOW PRESENT ABERRANT CONDUCTION IS NO LONGER PRESENT Confirmed by TRINIDAD JOLLY, KOBE ([id number]) on 04/04/2019 9:42:46 AM Referred By: Confirmed By:KOBE ABDI MD
== END 2019-04-03 15:35 | disposition home or self-care (01) ==
LOC: JER 11:48
PROC: 3E0337Z Introduction of Electrolytic and Water Balance Substance into Peripheral Vein, Percutaneous Approach (ICD-10-PCS; principal; 2019-04-03)
DX: K52.9 Noninfective gastroenteritis and colitis, unspecified (principal); Z96.651 Presence of right artificial knee joint; I10 Essential (primary) hypertension
CPT/HCPCS: 36415; 74177-TC; 80053; 82550; 83690; 84484; 85025; 85730; 87324; 87449; 93005; 93010; 96360; 99283-25; J7030

== ENCOUNTER 2019-07-29 11:32 | Observation (INO) | payer OTHER ==
[2019-07-29 13:37] LABS: BASO % 0.7 % (0-2.0); EOS % 4.2 % (0-4.5); HEMATOCRIT 39.6 % (35.4-49); HEMOGLOBIN 13.1 GM/dL (11.7-16.9); LYMPH % 22.1 % (8-40); MCH 30.7 pg (25.7-33.7); MCHC 33.2 g/dl (32.0-35.9); MEAN CELL VOLUME 92.3 fl (80-96); MEAN PLT VOLUME 7.4 fl (7.5-11.1); MONO % 9.3 % (3.8-10.2); NEUT % 63.7 % (42.8-82.8); PLATELET COUNT 243 K/MM3 (134-434); RBC 4.29 M/mm3 (4.00-5.60); RDW 13.9 % (11.9-15.9); WHITE BLOOD COUNT 7.1 K/mm3 (4.0-10.0)
[2019-07-29 13:49] LABS: INR 1.05 (0.83-1.09); PROTHROMBIN TIME (PATIENT) 12.4 SEC (9.7-13.0)
[2019-07-29 13:51] LABS: ACTIVATED PTT 30.5 SECONDS (25.2-36.5)
--- NOTE | 2019-07-29 14:10 | PDOC ---
Documentation entered by Shine Duran SCRIBE, acting as scribe for Abbi Martinez MD. Abbi Martinez MD: This documentation has been prepared by the Roger cortez Xhesika, SCRIBE, under my direction and personally reviewed by me in its entirety. I confirm that the documentation accurately reflects all work, treatment, procedures, and medical decision making performed by me. History of Present Illness - General Chief Complaint: Injury Stated Complaint: FALL Time Seen by Provider: 07/29/19 11:47 History Source: Patient, Spouse Exam Limitations: No Limitations - History of Present Illness Initial Comments: 07/29/19 13:02 The patient is an 79 year old male with a significant PMH of HTN, Anemia, TIA ( 20 years ago), sciatica, and arthritis, who presents to the ED with AMS s/p fall 2 days ago. As per at bedside, the patient was at the [facility] 2 days ago when his L leg "gave out" and landed on his L knee. Patient notes the sanitation workers helped him up and the patient drove home. Patient denies LOC or hitting head. notes that since then, the patient has been sleeping more , unsteady on his feet and has been confused since last night (patient asked is he took his medication 5 minutes after taking them which is unlike him) . She also reports noticing L facial asymmetry yesterday which she believes is new. She notes he has had LLE weakness 2/2 sciatica for the last few years and this has not gotten worse recently. notes the patient had a full workup with Dr. Tala Devine on 07/10/19 and had an echo, cardiogram, EKG, and US with coal pipeline operator on 08/14/19 which were all unremarkable. Pt's has been giving him baby asa for the last few days, he was previously on plavix for many years for his TIA, but was taken off of it 1 year ago. The patient denies any fever, chills, cough, nausea, or vomiting. Denies any frequency, urgency, hesitancy, dysuria, or hematuria. Denies any chest pain or shortness of breath, abd pain. Allergies: NKDA Surgical History: Hernia repair, total LT knee replacement. PCP: Dr. Tala Devine ([facility]) Past History - Past Medical History Allergies/Adverse Reactions: Allergies Allergy/AdvReac Type Severity Reaction Status Date / Time No Known Allergies Allergy Verified 07/29/19 11:40 Home Medications: Ambulatory Orders Amlodipine Besylate [Norvasc -] 2.5 mg PO DAILY 12/17/18 Lovastatin 10 mg PO DAILY 12/17/18 COPD: No HTN: Yes Hypercholesterolemia: Yes - Surgical History Abdominal Surgery: Yes (hernia) GI Surgery: No Orthopedic Surgery: Yes (right total knee replacement) - Immunization History Immunization Up to Date: No - Suicide/Smoking/Psychosocial Hx Smoking History: Never smoked Have you smoked in the past 12 months: No Hx Alcohol Use: No Drug/Substance Use Hx: No Review of Systems - Review of Systems Able to Perform ROS?: Yes Comments:: 07/29/19 13:04 GENERAL/CONSTITUTIONAL: No fever or chills. No weakness. HEAD, EYES, EARS, NOSE AND THROAT: No change in vision. No ear pain or discharge. No sore throat. GASTROINTESTINAL: No nausea, vomiting, diarrhea or constipation. GENITOURINARY: No dysuria, frequency, or change in urination. CARDIOVASCULAR: No chest pain or shortness of breath. RESPIRATORY: No cough, wheezing, or hemoptysis. MUSCULOSKELETAL: No joint or muscle swelling. No neck or back pain. (+) L leg weakness. (+) L knee pain. SKIN: No rash NEUROLOGIC: No headache, vertigo, loss of consciousness, or change in strength/ sensation. ENDOCRINE: No increased thirst. No abnormal weight change. HEMATOLOGIC/LYMPHATIC: No anemia, easy bleeding, or history of blood clots. ALLERGIC/IMMUNOLOGIC: No hives or skin allergy. *Physical Exam - Vital Signs Last Vital Signs Temp Pulse Resp BP Pulse Ox 97.7 F 76 18 122/54 L 99 07/29/19 11:37 07/29/19 11:37 07/29/19 11:37 07/29/19 11:37 07/29/19 11:37 - Physical Exam Comments: 07/29/19 13:04 GENERAL: Awake, alert, and fully oriented, in no acute distress HEAD: No signs of trauma EYES: PERRLA, EOMI, sclera anicteric, conjunctiva clear ENT: Auricles normal inspection, hearing grossly normal, nares patent, oropharynx clear without exudates. Moist mucosa NECK: Normal ROM, supple, no lymphadenopathy, JVD, or masses LUNGS: Breath sounds equal, clear to auscultation bilaterally. No wheezes, and no crackles HEART: Regular rate and rhythm, normal S1 and S2, +4/6 murmur loudest at L sternal border, no rubs or gallops ABDOMEN: Soft, nontender, normoactive bowel sounds. No guarding, no rebound. No masses EXTREMITIES: Normal range of motion, no edema. No clubbing or cyanosis. No cords , erythema, or tenderness BACK: No midline spinal tenderness in cervical/thoracic/lumbar region NEUROLOGICAL: Normal speech, (+) Nasolabial flattening on the L side but smile is mostly symmetric, negative pronator drift, 5/5 strength in all 4 extremities , normal sensation to light touch in all 4 extremities, normal cerebellar exam, normal reflexes and tone SKIN: Warm, Dry, normal turgor, no rashes or lesions noted. Heart Score/ECG Review #1 07/29/19 14:16 EKG read and int by me: NSR, rate 64. Normal axis and intervals. No SURESH. Isolated TWI in lead 3. ED Treatment Course - LABORATORY CBC & Chemistry Diagram: 07/29/19 13:08 07/29/19 13:08 - ADDITIONAL ORDERS Additional order review: Laboratory Results 07/29/19 07/29/19 13:08 13:08 PT with INR 12.40 INR 1.05 PTT (Actin FS) 30.5 Blood Type Cancelled Antibody Screen Cancelled 07/29/19 13:08 RBC 4.29 MCV 92.3 MCHC 33.2 RDW 13.9 MPV 7.4 L Neutrophils % 63.7 Lymphocytes % 22.1 D Monocytes % 9.3 Eosinophils % 4.2 D Basophils % 0.7 - RADIOLOGY Radiology Studies Ordered: Category Date Time Status CERVICAL SPINE CT W/O CONTR [CT] Stat CT Scan 07/29/19 12:[address] WITHOUT CONTRAST [CT] Stat CT Scan 07/29/19 12:59 Ordered CHEST X-RAY PORTABLE* [RAD] Stat Radiology 07/29/19 12:59 Taken PELVIS [RAD] Stat Radiology 07/29/19 12:59 Taken Medical Decision Making - Medical Decision Making 07/29/19 14:04 79yo M presents to the ED with altered mental status for 2 days after a fall Vitals wnl Exam remarkable for L sided nasolabial flattening, pt also seems confused which is off of his baseline per his Plan for altered mental status w/u including infectious vs neurologic vs ischemic vs toxic/metabolic pathology Anticipate admission 07/29/19 16:18 Labs, CTH unremarkable UA pending Case discussed with Dr. Altamirano, pt accepted for admission Case discussed in detail with admitting physician including history, physical exam and ancillary studies. Admitting physician has assumed care for the patient, will follow all pending diagnostics and will complete the evaluation and treatment. *DC/Admit/Observation/Transfer Diagnosis at time of Disposition: Facial asymmetry - Referrals - Patient Instructions - Post Discharge Activity - Attestations Physician Attestion: 07/29/19 16:20 I, Dr. Abbi Martinez MD, attest that this document has been prepared under my direction and personally reviewed by me in its entirety. I further attest, that it accurately reflects all work, treatment, procedures and medical decision -making performed by me.
[2019-07-29 14:13] LABS: ALBUMIN 3.4 g/dl (3.4-5.0); BILIRUBIN,TOTAL 0.4 mg/dL (0.2-1); CALCIUM 9.8 mg/dL (8.5-10.1); CREATININE 1.1 mg/dL (0.55-1.3); MAGNESIUM 2.3 mg/dL (1.8-2.4); POTASSIUM 4.6 mmol/L (3.5-5.1); TOT PROT 6.4 g/dl (6.4-8.2)
[2019-07-29] MEDS ORDERED: ACETAMINOPHEN 325 MG TABLET (FP) PO PRN (17:11)
--- NOTE | 2019-07-29 17:44 | EKG ---
Test Reason : Blood Pressure : / mmHG Vent. Rate : 064 BPM Atrial Rate : 064 BPM P-R Int : 138 ms QRS Dur : 096 ms QT Int : 384 ms P-R-T Axes : 049 -19 007 degrees QTc Int : 396 ms NORMAL SINUS RHYTHM WITH SINUS ARRHYTHMIA NORMAL ECG WHEN COMPARED WITH ECG OF 03-APR-2019 14:53, PREMATURE VENTRICULAR COMPLEXES ARE NO LONGER PRESENT Confirmed by TRINIDAD JOLLY, KOBE ([id number]) on 07/29/2019 5:43:36 PM Referred By: Confirmed By:KOBE ABDI MD
--- NOTE | 2019-07-29 17:45 | PN ---
Teaching Attending Note Name of Resident: Katia Farmer ATTENDING PHYSICIAN STATEMENT I saw and evaluated the patient. I reviewed the resident's note and discussed the case with the resident. I agree with the resident's findings and plan as documented. SUBJECTIVE: Patient is a 79yo male with PMHx of TIA (19 years ago, Plavix was stopped 4 months ago), HTN, Sciatica, Anemia, OA presents after fall x 2. OBJECTIVE: Vital Signs Temperature 97.7 F 07/29/19 11:37 Pulse Rate 76 07/29/19 11:37 Respiratory Rate 18 07/29/19 11:37 Blood Pressure 122/54 L 07/29/19 11:37 O2 Sat by Pulse Oximetry (%) 99 07/29/19 11:37 GENERAL: The patient is awake, alert, and fully oriented, in no acute distress. HEAD: Normal with no signs of trauma. EYES: PERRL, extraocular movements intact, sclera anicteric, conjunctiva clear. ENT: Ears normal, oropharynx clear without exudates, moist mucous membranes. NECK: Trachea midline, full range of motion, supple. LUNGS: Breath sounds equal, clear to auscultation bilaterally, no wheezes, no crackles, no accessory muscle use. HEART: Regular rate and rhythm, S1, S2 without murmur, rub or gallop. ABDOMEN: Soft, nontender, nondistended, normoactive bowel sounds, no guarding, no rebound, no hepatosplenomegaly, no masses. EXTREMITIES: 2+ pulses, warm, well-perfused, no edema. NEUROLOGICAL: Cranial nerves II through XII grossly intact. Normal speech, gait not observed. PSYCH: Normal mood, normal affect. SKIN: Warm, dry, normal turgor, no rashes or lesions noted CBCD WBC 7.1 K/mm3 (4.0-10.0) 07/29/19 13:08 RBC 4.29 M/mm3 (4.00-5.60) 07/29/19 13:08 Hgb 13.1 GM/dL (11.7-16.9) 07/29/19 13:08 Hct 39.6 % (35.4-49) 07/29/19 13:08 MCV 92.3 fl (80-96) 07/29/19 13:08 MCHC 33.2 g/dl (32.0-35.9) 07/29/19 13:08 RDW 13.9 % (11.9-15.9) 07/29/19 13:08 Plt Count 243 K/MM3 (134-434) D 07/29/19 13:08 MPV 7.4 fl (7.5-11.1) L 07/29/19 13:08 CMP Sodium 142 mmol/L (136-145) 07/29/19 13:08 Potassium 4.6 mmol/L (3.5-5.1) 07/29/19 13:08 Chloride 108 mmol/L (98-107) H 07/29/19 13:08 Carbon Dioxide 28 mmol/L (21-32) 07/29/19 13:08 Anion Gap 6 MMOL/L (8-16) L 07/29/19 13:08 BUN 19.0 mg/dL (7-18) H 07/29/19 13:08 Creatinine 1.1 mg/dL (0.55-1.3) 07/29/19 13:08 Random Glucose 84 mg/dL (74-106) 07/29/19 13:08 Calcium 9.8 mg/dL (8.5-10.1) 07/29/19 13:08 Total Bilirubin 0.4 mg/dL (0.2-1) 07/29/19 13:08 AST 17 U/L (15-37) 07/29/19 13:08 ALT 17 U/L (13-61) 07/29/19 13:08 Alkaline Phosphatase 41 U/L (45-117) L 07/29/19 13:08 Total Protein 6.4 g/dl (6.4-8.2) 07/29/19 13:08 Albumin 3.4 g/dl (3.4-5.0) 07/29/19 13:08 CARDIAC ENZYMES Troponin I < 0.02 ng/ml (0.00-0.05) 07/29/19 13:08 Current Medications Generic Name Dose Route Start Last Admin Trade Name Freq PRN Reason Stop Dose Admin Acetaminophen 650 mg 07/29/19 17:11 Tylenol - PO Q6H PRN PAIN LEVEL 1-5 Atorvastatin Calcium 40 mg 07/29/19 22:00 Lipitor - PO HS DOUG Clopidogrel Bisulfate 75 mg 07/29/19 17:30 Plavix - PO DAILY DOUG Heparin Sodium (Porcine) 5,000 unit 07/29/19 22:00 Heparin - SQ TID [facility] Home Medications Medication Instructions Recorded Amlodipine Besylate [Norvasc -] 2.5 mg PO DAILY 12/17/18 Lovastatin 10 mg PO DAILY 12/17/18 ASSESSMENT AND PLAN: Patient is a 79 y/o M with PMHx of TIA (19 years ago, Plavix was stopped 4 months ago by his primary substance abuse counselor), HTN, Sciatica, Anemia, OA presents after fall x 2 and L Nasolabial fold flattening, concerning for TIA. #Acute TIA with hx of TIA (19years ago) r/o CVA : neuro , will start the patient back to Plavix , MRI of the brain and carotids ordered and pending. #s/p Fall: Ct of the heaD and neck no fx , patient is going for mri, Physical therapy. #HTN: controlled DVT: Heparin
--- NOTE | 2019-07-29 18:10 | HP ---
CHIEF COMPLAINT: Fall PCP: Dr. Devine HISTORY OF PRESENT ILLNESS: 79 y/o M with PMHx of TIA (19 years ago, Plavix use stopped 4 months ago), HTN, Sciatica, Anemia, OA presents after falls x 2. Patient was accompanied by his who aided in providing the HPI. Patients explains that on Friday 07/27 , patient was clearing out a storage room in there home and took his belongings to the dump. After placing these items in the garbage bin, upon returning to his vehicle, patient felt his left leg give out and suddenly collapsed landing on his buttocks without any preceding aura, photophobia, blurry vision, dizziness or lightheadednes. The sanitation workers in the vicinity helped the patient back to his feet and he drove home. Upon arriving home, after ambulating up 12 stairs and entering his living room, he again collapsed in the same fashion and landed on his buttocks. Patient says that during both episodes , he felt his left leg give out--He additionally mentions his leg has given out many times in the same way over the past few years due to his sciatica. After both falls, patient required assistance to return to his feet. On Saturday, his gave him a baby ASA however patient felt sleepy and tired during the rest of the day. On Saturday, patient felt his usual state of health however in the evening, having difficulty remembering short term events and was accompanied by blurry vision. This AM, his sx's persisted and were now accompanied by a Left nasolabial fold flattening prompting his to bring him to the ED. Denies any associated fevers, chills, chest pain, SOB, nausea, vomiting, diarrhea, constipation. Recent Travel: Denies PAST MEDICAL HISTORY: As above PAST SURGICAL HISTORY: Right Total knee replacement, Hernia repair Social History: Smoking: Denies Alcohol: Denies Drugs: Denies Residence: at home with Ambulation: With cane present at bedside Family History: Father with ruptured AAA Allergies No Known Allergies Allergy (Verified 07/29/19 11:40) HOME MEDICATIONS: Home Medications Medication Instructions Recorded Amlodipine Besylate [Norvasc -] 2.5 mg PO DAILY 12/17/18 Lovastatin 10 mg PO DAILY 12/17/18 REVIEW OF SYSTEMS As above PHYSICAL EXAMINATION Vital Signs - 24 hr 07/29/19 11:37 Temperature 97.7 F Pulse Rate 76 Respiratory 18 Rate Blood Pressure 122/54 L O2 Sat by Pulse 99 Oximetry (%) GENERAL: A&Ox3, NAD HEAD: NCAT EYES: PERRL, EOMI EARS, NOSE, THROAT: [place], MMM NECK: Supple, No JVD LUNGS: CTAB, No wheezes, no crackles HEART: Regular rate and rhythm, normal S1 and S2, 3/6 LUSB murmur ABDOMEN: Soft, nontender, not distended, + bowel sounds, no guarding, no rebound MUSCULOSKELETAL: No CVA tenderness. No midline spine, hip joint or knee joint tenderness to palpation. EXTREMITIES: No peripheral edema. NEUROLOGICAL: Left nasolabial fold flattening with slight slurring of speech, otherwise CN II-XII intact. NIHSS 2. Gross sensation intact throughout. 5/5 muscle strength throughout. SKIN: Warm, dry. Healed scar over the right knee. 2cm scab over the left knee without active drainage. Laboratory Results - last 24 hr 07/29/19 07/29/19 07/29/19 13:08 13:08 13:08 WBC 7.1 RBC 4.29 Hgb 13.1 Hct 39.6 MCV 92.3 MCH 30.7 MCHC 33.2 RDW 13.9 Plt Count 243 D MPV 7.4 L Absolute Neuts (auto) 4.5 Neutrophils % 63.7 Lymphocytes % 22.1 D Monocytes % 9.3 Eosinophils % 4.2 D Basophils % 0.7 Nucleated RBC % 0 PT with INR INR PTT (Actin FS) Sodium 142 Potassium 4.6 Chloride 108 H Carbon Dioxide 28 Anion Gap 6 L BUN 19.0 H Creatinine 1.1 Est GFR (CKD-EPI)AfAm 73.09 Est GFR (CKD-EPI)NonAf 63.07 Random Glucose 84 Calcium 9.8 Magnesium 2.3 Total Bilirubin 0.4 AST 17 ALT 17 Alkaline Phosphatase 41 L Troponin I Total Protein 6.4 Albumin 3.4 Blood Type Cancelled Antibody Screen Cancelled 07/29/19 07/29/19 13:08 13:08 WBC RBC Hgb Hct MCV MCH MCHC RDW Plt Count MPV Absolute Neuts (auto) Neutrophils % Lymphocytes % Monocytes % Eosinophils % Basophils % Nucleated RBC % PT with INR 12.40 INR 1.05 PTT (Actin FS) 30.5 Sodium Potassium Chloride Carbon Dioxide Anion Gap BUN Creatinine Est GFR (CKD-EPI)AfAm Est GFR (CKD-EPI)NonAf Random Glucose Calcium Magnesium Total Bilirubin AST ALT Alkaline Phosphatase Troponin I < 0.02 Total Protein Albumin Blood Type Antibody Screen Active Medications Acetaminophen (Tylenol -) 650 mg PO Q6H PRN PRN Reason: PAIN LEVEL 1-5 Atorvastatin Calcium (Lipitor -) 40 mg PO HS DOUG Clopidogrel Bisulfate (Plavix -) 75 mg PO DAILY DOUG Heparin Sodium (Porcine) (Heparin -) 5,000 unit SQ TID DOUG IMAGING: -CT Head without contrast: Moderate atrophy. No gross evidence of a focal intracranial lesion or hemorrhage is seen. Correlate to determine further evaluation and follow-up. -CT C-Spine without contrast: The alignment is satisfactory. No gross fracture or subluxation is seen. No jumped facets are identified. Minimal disc disease with mild posterior spur formation and bilateral uncovertebral hypertrophy, as described above -Pelvis XRay: A single view of the pelvis reveals no sign of fracture or subluxation and no sign of blastic or lytic changes. The SI joints are patent. There is no sign of fracture or subluxation and no sign of blastic or lytic changes. The hips appear symmetrical. There are degenerative spine changes with scoliosis. There is a nonspecific bowel pattern and there is a urine filled bladder. Correlation recommended. -CXR: No acute chest pathology. -EKG: NSR with jorge lara, VR 64, QTc 396 ASSESSMENT/PLAN: 79 y/o M with PMHx of TIA (19 years ago, Plavix use stopped 4 months ago), HTN, Sciatica, Anemia, OA presents after falls x 2 and L Nasolabial fold flattening, concerning for TIA. #Nasolabial fold flattening -Concerning for TIA; Possibly infectious source -Noncon CT Head negative noted above -EKG does not reveal arrhythmia -Atorvastatin 40mg HS -Clopidogrel 75mg -Check Echo, Brain MRI, Carotid dopplers, Lipid panel, TSH, A1c, Lyme titer -Neurochecks -Fall/Seizure/Dysphagia precautions -Keep HOB elevated to 30 degrees -Neurology (Dr. Perez) consulted -Speech and swallow consulted #Falls -Imaging noted above does not reveal Fx -Physical therapy -Pain control via Acetaminophen #HTN -Normotensive on admission -Will need med-rec prior to restarting home meds #FEN -No standing fluids -Lytes WNL, Replete PRN -NPO for now; Can advance diet if passes bedside swallow eval #PPx -DVT: Heparin Dispo: Obs/Stroke unit Visit type - Emergency Visit Emergency Visit: Yes ED Registration Date: 07/29/19 Care time: The patient presented to the Emergency Department on the above date and was hospitalized for further evaluation of their emergent condition. - New Patient This patient is new to me today: Yes Date on this admission: 07/30/19 - Critical Care Critical Care patient: No ATTENDING PHYSICIAN STATEMENT I saw and evaluated the patient. I reviewed the resident's note and discussed the case with the resident. I agree with the resident's findings and plan as documented. SUBJECTIVE: OBJECTIVE: ASSESSMENT AND PLAN:
[2019-07-29] MEDS ORDERED: CLOPIDOGREL BISULFATE 75 MG TABLET (FP) ONE (19:21)
[2019-07-29] MEDS: CLOPIDOGREL BISULFATE 75 MG TABLET (FP) PO SCH (19:24)
[2019-07-29] MEDS: HEPARIN NA (PORCINE) 5,000 UNITS/ML 1ML VIAL SQ SCH (21:57)
[2019-07-29] MEDS ORDERED: ATORVASTATIN CA 40 MG TABLET (FP) PO SCH (22:00)
--- NOTE | 2019-07-29 22:54 | CON.NEURO ---
Consult Consult Specialty:: NEUROLOGY-[facility] Reason for Consultation:: ?/TIA - History of Present Illness History of Present Illness: 79 y/o M with PMHx of TIA (19 years ago, Plavix use stopped 4 months ago), HTN, Sciatica, Anemia, OA presents after falls x 2. Patient was accompanied by his who aided in providing the HPI. Patients explains that on Friday 07/27 , patient was clearing out a storage room in there home and took his belongings to the dump. After placing these items in the garbage bin, upon returning to his vehicle, patient felt his left leg give out and suddenly collapsed landing on his buttocks without any preceding aura, photophobia, blurry vision, dizziness or lightheadednes. The sanitation workers in the vicinity helped the patient back to his feet and he drove home. Upon arriving home, after ambulating up 12 stairs and entering his living room, he again collapsed in the same fashion and landed on his buttocks. Patient says that during both episodes , he felt his left leg give out--He additionally mentions his leg has given out many times in the same way over the past few years due to his sciatica. After both falls, patient required assistance to return to his feet. On Saturday, his gave him a baby ASA however patient felt sleepy and tired during the rest of the day. On Saturday, patient felt his usual state of health however in the evening, having difficulty remembering short term events and was accompanied by blurry vision. This AM, his sx's of blurred vison persisted and were now accompanied by a Left nasolabial fold flattening prompting his to bring him to the ED. Now reports he feels well, denies all symptoms, states he does not feel face is drooped. 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 (Sciatica) Cardio/Vascular: Yes: HTN - Alcohol/Substance Use Hx Alcohol Use: No History of Substance Use: reports: None - Smoking History Smoking history: Never smoked Have you smoked in the past 12 months: No - Social History Usual Living Arrangement: With Spouse ADL: Independent Occupation: Retired: worked for [employer] History of Recent Travel: No Home Medications - Allergies Allergies/Adverse Reactions: Allergies Allergy/AdvReac Type Severity Reaction Status Date / Time No Known Allergies Allergy Verified 07/29/19 11:40 - Home Medications Home Medications: Ambulatory Orders Amlodipine Besylate [Norvasc -] 2.5 mg PO DAILY 12/17/18 Lovastatin 10 mg PO DAILY 12/17/18 Family Disease History - Family Disease History Family Disease History: Other: Father (: 80's "old age"), Mother (: 80' s "old age"), Brother (2, 1 from perforation, 1 from unclear etiology) , Son (3, healthy) Physical Exam-Neuro Vital Signs: Vital Signs Temperature 97.7 F 07/29/19 11:37 Pulse Rate 73 07/29/19 19:48 Respiratory Rate 18 07/29/19 17:52 Blood Pressure 147/69 07/29/19 19:48 O2 Sat by Pulse Oximetry (%) 96 07/29/19 19:48 Labs: CBC, BMP 07/29/19 13:08 07/29/19 13:08 INR, PTT INR 1.05 (0.83-1.09) 07/29/19 13:08 - Neuro Exam DTR's: 0 Left Achilles, 0 Right Achilles, 2+ Left Bicep, 2+ Right Bicep, 2+ Left Tricep, 2+ Right Tricep, 2+ Left Brachioradialis, 2+ Right Brachioradialis Babinski: Present (left) Motor Strength: 5/5: Left Arm, Right Arm, Left Leg, Right Leg (+ slight left drift) Gait: Normal (Unable to heel/toe walk) Imaging - Results Cat Scan: Report Reviewed (No ischemia evident) MRI: Image Reviewed (Right likely lenticulostraite territory infarct on DWI) Assessment/Plan pt. with vasc. risk factors, now with fall, slight left LE weakness, left pronatoir drift and right lenticulostriate territory infarct. Suggest: Plavix 75mg daily, carotid ultrasound, echocard. PT/Rehab. Please have him f/u at my office [phone]. Thank you, Nicky Perez MD
[2019-07-29 23:28] VITALS: BMI 22.8
[2019-07-30] MEDS: HEPARIN NA (PORCINE) 5,000 UNITS/ML 1ML VIAL SQ SCH ×2 (05:10→14:16)
[2019-07-30 05:17] VITALS: TEMP 97.9
[2019-07-30 06:41] LABS: BASO % 0.8 % (0-2.0); EOS % 6.4 % (0-4.5); HEMATOCRIT 37.7 % (35.4-49); HEMOGLOBIN 12.8 GM/dL (11.7-16.9); LYMPH % 23.7 % (8-40); MCHC 33.8 g/dl (32.0-35.9); MEAN CELL VOLUME 91.7 fl (80-96); MEAN PLT VOLUME 7.1 fl (7.5-11.1); MONO % 9.3 % (3.8-10.2); NEUT % 59.8 % (42.8-82.8); PLATELET COUNT 237 K/MM3 (134-434); RBC 4.11 M/mm3 (4.00-5.60); RDW 14.2 % (11.9-15.9); WHITE BLOOD COUNT 7.7 K/mm3 (4.0-10.0)
[2019-07-30 07:13] LABS: ALBUMIN 3.4 g/dl (3.4-5.0); BILIRUBIN,TOTAL 0.4 mg/dL (0.2-1); BLOOD UREA NITROGEN 22.1 mg/dL (7-18); CALCIUM 9.7 mg/dL (8.5-10.1); CREATININE 1.1 mg/dL (0.55-1.3); MAGNESIUM 2.1 mg/dL (1.8-2.4); PHOSPHOROUS 2.8 mg/dL (2.5-4.9); TOT PROT 6.4 g/dl (6.4-8.2)
[2019-07-30 08:20] VITALS: PULSE 72
[2019-07-30] MEDS: CLOPIDOGREL BISULFATE 75 MG TABLET (FP) PO SCH (09:39)
--- NOTE | 2019-07-30 10:32 | CONSULT ---
Admitting History and Physical - Primary Care Physician PCP: Woody Altamirano - Admission History of Present Illness: 79 y/o M with PMHx of TIA (19 years ago, Plavix use stopped 4 months ago), HTN, Sciatica, Anemia, OA presents after falls x 2 and L Nasolabial fold flattening, concerning for TIA. Left Nasolabial fold flattening Pt's reports pt's dentures have been loose at home and his food needed to be soft, cut up as "they moved and could not be tightened". Pt put his dentures in a napkin and they are now missing. History Source: Patient, Family Member Limitations to Obtaining History: No Limitations - Past Medical History [employer]: Yes: Other (Sciatica) Cardiovascular: Yes: HTN - Smoking History Smoking history: Never smoked Have you smoked in the past 12 months: No - Alcohol/Substance Use Hx Alcohol Use: No History of Substance Use: reports: None - Social History ADL: Independent Occupation: Retired: worked for [employer] History of Recent Travel: No History - Admission Reason For Visit: FACIAL ASYMMETRY - Diagnostics X-ray: Report Reviewed CT Scan: Report Reviewed MRI: Report Reviewed (R BG subacute infarct. Diffuse MV changes.) - General Mental Status: Alert and Oriented, Awake and Alert, Able to Follow Commands, Forgetful (reported yesterday.) Attention: Intact Ability to Follow Directions: Good Head/Neck Control: WFL - Hearing Hearing: Impaired Hearing Aide: Yes With Patient: No Speech Evaluation - Communication Primary Language: BAHRAINI Communication: Yes: Dysarthria - Speech Production Able to Make Needs Known: Yes: WNL Intelligibility: Yes: Mildly Impaired - Speech Characteristics Voice Loudness: Normal Voice Pitch: Yes: Normal Voice Phonatory-based Quality: Yes: Normal Speech Clarity: < 100% Nasal Resonance: Normal Articulation: Yes: Imprecise (slight) Rate of Speech: Intact - Language/Auditory Comprehension Follows: Yes: 2 Stage Simple Commands Observation: Able to respond to yes/no queries: Yes, Yes/No Confusion: No, Comprehends Conversational Speech: Yes - Language/Verbal Expression Able to Respond to Simple Queries: Yes: WNL Able to Communicate Wants and Needs: Yes: WNL Functional Communication Status: Yes: WNL - Swallow Evaluation/Bedside Assessment Current Nutritional Intake: Regular, Thin Liquids Oral Secretions: Yes: WFL Dentition: Yes: Edentulous (upper- dentures placed in napkin now missing) Facial Symmetry at Rest: Facial Droop Left Facial Symmetry on Retraction: Symmetrical Facial Movement: Controlled Against Resistance Opening: Normal Against Resistance Closing: Normal Pucker Lips: Normal Smile: Normal Lingual Movement: Normal, Symmetric Lingual Speed of Movement: Normal Lingual Movement Strgth Against Opposition: Normal Lingual Movement Characteristics: Normal Velopharyngeal Movement: Normal Laryngeal Elevation: WFL Laryngeal Movement: Able to Palpate Rate of Intake: WFL Bolus Size: WFL Labial Seal: WFL Chewing: Impaired Oral Prep Time: WFL A-P Transit: WFL Timing of Swallow: WFL Coughing/Throat Clear: No Change in Voice: No Recommendations - Speech Evaluation, Impression/Plan Impression: Left facial. Mild articulatory imprecision, new onset per his . Swallowing intact. Mastication limited due to loss of dentures. - Disposition Discharge to: To be Determined - Dysphagia Impressions/Plan Dysphagia Impressions: Mild Impairment *Silent aspiration: cannot be R/O at bedside Dysphagia Treatment Plan: Small Bites, Chin Tuck/Down, Clear Pocket Food, Trial Feedings, Safe Rate, 1/2 tsp. at a time, OOB for meals, OOB for 1 h. after meals - Recommendations Diet Consistency: Dysphagia Minced, 1 - 2 Soft Items (trial- very soft solids) Medication Administration: Crushed with applesauce Liquids: Thin Liquids Supplement: Ensure, Ensure Pudding
--- NOTE | 2019-07-30 14:13 | ECHO ---
Name: DEWEY FERRARO Exam:Adult Echocardiogram Study Date: 07/30/2019 10:41 AM Age: 79 yrs Reason For Study: TIA Height: 70 in Weight: 158 lb BSA: 1.9 m2 MMode/2D Measurements & Calculations IVSd: 1.2 cm Ao root diam: 3.2 cm LVIDd: 4.8 cm LA dimension: 3.7 cm LVIDs: 3.1 cm LVPWd: 0.73 cm EDV(Teich): 109.9 ml LVOT diam: 2.0 cm ESV(Teich): 36.8 ml Doppler Measurements & Calculations MV E max clay: 75.0 cm/sec Ao V2 max: 257.0 cm/sec MV A max clay: 95.3 cm/sec Ao max P.4 mmHg MV E/A: 0.79 Ao V2 mean: 167.2 cm/sec MV dec time: 0.24 sec Ao mean P.4 mmHg Ao V2 VTI: 51.8 cm LUPILLO(I,D): 1.2 cm2 AI P1/2t: 740.7 msec LUPILLO(V,D): 1.3 cm2 AI max clay: 356.3 cm/sec LV V1 max P.4 mmHg AI max P.8 mmHg LV V1 mean P.1 mmHg AI dec slope: 140.9 cm/sec2 LV V1 max: 105.3 cm/sec LV V1 mean: 63.7 cm/sec LV V1 VTI: 20.0 cm SV(LVOT): 63.9 ml TR max clay: 171.2 cm/sec TR max P.9 mmHg Med Peak E' Clay: 5.3 cm/sec Med E/e': 14.1 Lat Peak E' Clay: 8.8 cm/sec Lat E/e': 8.6 Procedure A complete two-dimensional transthoracic echocardiogram was performed (2D, M-mode, Doppler and color flow Doppler). Left Ventricle The left ventricular size, thickness and function are normal. The left ventricular ejection fraction is normal. Ejection Fraction = 60-65%. The left ventricular wall motion is normal. Right Ventricle The right ventricle is normal in size and function. Atria Normal left and right atrial size and function. Mitral Valve There is no mitral regurgitation noted. Tricuspid Valve There is mild tricuspid regurgitation. Right ventricular systolic pressure is normal. Aortic Valve Mild to moderate valvular aortic stenosis. Trace aortic regurgitation. Pulmonic Valve Trace pulmonic valvular regurgitation. Great Vessels The aortic root is normal size. Pericardium/Pleura There is no pericardial effusion. Interpretation Summary The left ventricular size, thickness and function are normal The right ventricle is normal in size and function. There is mild tricuspid regurgitation. Trace aortic regurgitation. Mild to moderate valvular aortic stenosis. Trace pulmonic valvular regurgitation. MD Alex Michelle 07/30/2019 02:13 PM
[2019-07-30 15:01] VITALS: BP 145/71
--- NOTE | 2019-07-30 16:38 | PN ---
Teaching Attending Note Name of Resident: Liset Santana ATTENDING PHYSICIAN STATEMENT I saw and evaluated the patient. I reviewed the resident's note and discussed the case with the resident. I agree with the resident's findings and plan as documented. SUBJECTIVE: Patient is comfortable with no acute distress, wants to go home. OBJECTIVE: Vital Signs Temperature 97.9 F 07/30/19 15:00 Pulse Rate 72 07/30/19 15:00 Respiratory Rate 18 07/30/19 15:01 Blood Pressure 145/71 07/30/19 15:00 O2 Sat by Pulse Oximetry (%) 95 07/30/19 15:01 GENERAL: The patient is awake, alert, and fully oriented, in no acute distress. HEAD: Normal with no signs of trauma. EYES: PERRL, extraocular movements intact, sclera anicteric, conjunctiva clear. ENT: Ears normal, oropharynx clear without exudates, moist mucous membranes. NECK: Trachea midline, full range of motion, supple. LUNGS: Breath sounds equal, clear to auscultation bilaterally, no wheezes, no crackles, no accessory muscle use. HEART: Regular rate and rhythm, S1, S2 without murmur, rub or gallop. ABDOMEN: Soft, nontender, nondistended, normoactive bowel sounds, no guarding, no rebound, no hepatosplenomegaly, no masses. EXTREMITIES: 2+ pulses, warm, well-perfused, no edema. NEUROLOGICAL: Cranial nerves II through XII grossly intact. Normal speech, gait not observed. PSYCH: Normal mood, normal affect. SKIN: Warm, dry, normal turgor, no rashes or lesions noted CBCD WBC 7.7 K/mm3 (4.0-10.0) 07/30/19 06:05 RBC 4.11 M/mm3 (4.00-5.60) 07/30/19 06:05 Hgb 12.8 GM/dL (11.7-16.9) 07/30/19 06:05 Hct 37.7 % (35.4-49) 07/30/19 06:05 MCV 91.7 fl (80-96) 07/30/19 06:05 MCHC 33.8 g/dl (32.0-35.9) 07/30/19 06:05 RDW 14.2 % (11.9-15.9) 07/30/19 06:05 Plt Count 237 K/MM3 (134-434) 07/30/19 06:05 MPV 7.1 fl (7.5-11.1) L 07/30/19 06:05 CMP Sodium 140 mmol/L (136-145) 07/30/19 06:05 Potassium 4.0 mmol/L (3.5-5.1) 07/30/19 06:05 Chloride 107 mmol/L (98-107) 07/30/19 06:05 Carbon Dioxide 28 mmol/L (21-32) 07/30/19 06:05 Anion Gap 6 MMOL/L (8-16) L 07/30/19 06:05 BUN 22.1 mg/dL (7-18) H 07/30/19 06:05 Creatinine 1.1 mg/dL (0.55-1.3) 07/30/19 06:05 Random Glucose 98 mg/dL (74-106) 07/30/19 06:05 Calcium 9.7 mg/dL (8.5-10.1) 07/30/19 06:05 Total Bilirubin 0.4 mg/dL (0.2-1) 07/30/19 06:05 AST 18 U/L (15-37) 07/30/19 06:05 ALT 16 U/L (13-61) 07/30/19 06:05 Alkaline Phosphatase 39 U/L (45-117) L 07/30/19 06:05 Total Protein 6.4 g/dl (6.4-8.2) 07/30/19 06:05 Albumin 3.4 g/dl (3.4-5.0) 07/30/19 06:05 CARDIAC ENZYMES Troponin I < 0.02 ng/ml (0.00-0.05) 07/29/19 13:08 Current Medications Generic Name Dose Route Start Last Admin Trade Name Freq PRN Reason Stop Dose Admin Acetaminophen 650 mg 07/29/19 17:11 Tylenol - PO Q6H PRN PAIN LEVEL 1-5 Atorvastatin Calcium 40 mg 07/29/19 22:00 07/29/19 21:58 Lipitor - PO 40 mg HS DOUG Administration Clopidogrel Bisulfate 75 mg 07/29/19 17:30 07/30/19 09:39 Plavix - PO 75 mg DAILY DOUG Administration Heparin Sodium (Porcine) 5,000 unit 07/29/19 22:00 07/30/19 14:16 Heparin - SQ 5,000 unit TID [facility] Administration Home Medications Medication Instructions Recorded Amlodipine Besylate [Norvasc -] 2.5 mg PO DAILY 12/17/18 Atorvastatin Ca [Lipitor] 40 mg PO HS #30 tablet 07/30/19 Clopidogrel Bisulfate [Plavix -] 75 mg PO DAILY #30 tablet 07/30/19 Carotid Duplex: moderate intimal thickening in the distal common carotid arteryup the bifurcation b/l, moderate size plaques with calcifications at the right and left common carotid bifurcation without evidence of hemodynamically significant stenosis BL. MRI of the brain: Right basal ganglia(striatocapsular) subacute infarct with microangiopathic ischemic changes, gliosis. CT of the head: No bleed ECHO: left ventricle is normal, right ventricle is normal, mild TR, trace aortic regurg. trace aortic regurg. mild to moderate as, trace pulmonic valvular regurg. 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 #Subacute right basal ganglia infarct : neuro discussed with , patient wants to go home, placed the patient on lipitor and plavix. follow with in a week period. #s/p Falls: Ct of the heaD and neck no fx , Physical therapy. #HTN: controlled will send him home with VNS
--- NOTE | 2019-07-30 19:31 | DS ---
Physical Exam: SUBJECTIVE: Patient seen and examined at the bedside. No acute events overnight , the patient appears comfortable and states he is feeling well. Reports he would like to be discharged to home. OBJECTIVE: Vital Signs Period Temp Pulse Resp BP Sys/Leon Pulse Ox Last 24 Hr 97.8 F-98.7 F 65-73 18-18 131-160/66-81 95-96 PHYSICAL EXAM GENERAL: The patient is awake, alert, and fully oriented, in no acute distress. HEAD: Normal with no signs of trauma. EYES: PERRL, extraocular movements intact, sclera anicteric, conjunctiva clear. ENT: Ears normal, nares patent, oropharynx clear without exudates, moist mucous membranes. NECK: Trachea midline, full range of motion, supple. LUNGS: Breath sounds equal, clear to auscultation bilaterally, no wheezes, no crackles, no accessory muscle use. HEART: Regular rate and rhythm, S1, S2, 3/6 LUSB murmur ABDOMEN: Soft, nontender, nondistended, normoactive bowel sounds, no guarding, no rebound. EXTREMITIES: 2+ pulses, warm, well-perfused, no edema. NEUROLOGICAL: Cranial nerves II through XII grossly intact. Minimal slurring speech, gait not observed. Gross sensation intact throughout. 5/5 muscle strength throughout. Left nasolabial fold flattening not appreciated on my exam. PSYCH: Normal mood, normal affect. SKIN: Warm, dry, normal turgor, healed scar over the right knee. 2cm scab over the left knee without active drainage. LABS Laboratory Results - last 24 hr 07/30/19 07/30/19 07/30/19 06:05 06:05 06:05 WBC 7.7 RBC 4.11 Hgb 12.8 Hct 37.7 MCV 91.7 MCH 31.0 MCHC 33.8 RDW 14.2 Plt Count 237 MPV 7.1 L Absolute Neuts (auto) 4.6 Neutrophils % 59.8 Lymphocytes % 23.7 Monocytes % 9.3 Eosinophils % 6.4 H Basophils % 0.8 Nucleated RBC % 0 Sodium 140 Potassium 4.0 Chloride 107 Carbon Dioxide 28 Anion Gap 6 L BUN 22.1 H Creatinine 1.1 Est GFR (CKD-EPI)AfAm 73.09 Est GFR (CKD-EPI)NonAf 63.07 Random Glucose 98 Hemoglobin A1c % 5.2 Calcium 9.7 Phosphorus 2.8 Magnesium 2.1 Total Bilirubin 0.4 AST 18 ALT 16 Alkaline Phosphatase 39 L Total Protein 6.4 Albumin 3.4 Triglycerides 144 Cholesterol 180 Total LDL Cholesterol 101 H HDL Cholesterol 48 TSH 3.49 HOSPITAL COURSE: Date of Admission:07/29/19 79 y/o M with PMHx of TIA (19 years ago, Plavix use stopped 4 months ago), HTN, Sciatica, Anemia, OA presents after falls x 2 and L Nasolabial fold flattening, concerning for TIA. MRI was performed and the patient was confirmed to have a R basal ganglia (striatocapsular) subacute infarct. The patient was restarted on plavix (had previously been on it but discontinued use 4 months ago). Work up also included an echocardiogram which was nomal and an ultrasound of the carotid arteries which were also normal. The patient was evaluated by speech pathology who determined swalling was intact and recommended a soft solid diet with thin liquids. Dysphagia evaluation revealed mild impairment. Patient improved clinically and was atable for discharge home. Date of Discharge: 07/30/19 Minutes to complete discharge: 40 Discharge Summary Reason For Visit: FACIAL ASYMMETRY Condition: Stable - Instructions Diet, Activity, Other Instructions: You came the hospital after having a fall at home with some facial asymmetry and were found to have a subacute stroke on your brain MRI.. We started you back on your plavix medication. We did an echocardiogram of your heart which was normal and we did an ultrasound of your carotid arteries which were normal. Your symptoms improved and you were stable to be discharged home. Please resume all of your home medications in addition: -Please take the blood thinner Plavix 75mg daily -Please take the cholesterol medication, Lipitor 40mg daily Follow Ups: Please follow up with Dr. Devine, within one week Please follow up with the neurologist, Dr. Perez within one week We are referring you to a [facility] to follow up with as well DIET: Have soft diet ( very soft solids) Medication to be given : Crushed with applesauce Liquids: Thin Liquids Supplement: Ensure, Ensure Pudding *if you begin to experience dizziness, changes in speech/gait, chest pains, shortness of breath please return to the emergency room immediately Referrals: Fernandez Perez MD [Staff Physician] - 1 Week Mariano Brand MD [Staff Physician] - 1 Week Deepthi Devineen [Primary Care Provider] - 1 Week Disposition: HOME - Home Medications Comprehensive Discharge Medication List: Ambulatory Orders Amlodipine Besylate [Norvasc -] 2.5 mg PO DAILY 12/17/18 Atorvastatin Ca [Lipitor] 40 mg PO HS #30 tablet 07/30/19 Clopidogrel Bisulfate [Plavix -] 75 mg PO DAILY #30 tablet 07/30/19 This patient is new to me today: Yes Date on this admission: 07/30/19 Emergency Visit: Yes ED Registration Date: 07/29/19 Care time: The patient presented to the Emergency Department on the above date and was hospitalized for further evaluation of their emergent condition. Critical Care patient: No - Discharge Referral Referred to [facility] No ATTENDING PHYSICIAN STATEMENT I saw and evaluated the patient. I reviewed the resident's note and discussed the case with the resident. I agree with the resident's findings and plan as documented. SUBJECTIVE: OBJECTIVE: ASSESSMENT AND PLAN:
== END 2019-07-30 17:58 | disposition home or self-care (01) ==
LOC: JER 11:32 → UNDOADMOB 16:16 → JERBED 16:16 → INTOOBSV 16:16 → JERBED 17:11 → J4W 20:52
PROVIDERS: ADMIT Internal Medicine; ATTEND Internal Medicine
PROC: 3E013GC Introduction of Other Therapeutic Substance into Subcutaneous Tissue, Percutaneous Approach (ICD-10-PCS; principal; 2019-07-29)
DX: R29.810 Facial weakness (principal); I63.9 Cerebral infarction, unspecified; I10 Essential (primary) hypertension; E78.00 Pure hypercholesterolemia, unspecified; M54.30 Sciatica, unspecified side; M19.90 Unspecified osteoarthritis, unspecified site; Z91.81 History of falling; Z86.73 Personal history of transient ischemic attack (TIA), and cerebral infarction without residual deficits; Z96.651 Presence of right artificial knee joint
CPT/HCPCS: 36415; 70450-TC; 70551-TC; 71045-TC-FY; 72125-TC; 72170-TC-FY; 80053; 80061; 83036; 83721; 83735; 84100; 84443; 84484; 85025; 85610; 85730; 86618; 93005; 93010; 93306-TC; 93880-TC; 96372; 97116-GP; 97161-GP; 99285-25; G0378; J1644

== ENCOUNTER 2022-02-01 12:18 | Observation (INO) | payer OTHER ==
[2022-02-01] MEDS ORDERED: SODIUM CHLORIDE 0.9% 500 ML INFUS.BAG IV ONE (14:42)
[2022-02-01 14:44] LABS: BASO % 0.6 % (0-2.0); EOS % 4.2 % (0-4.5); HEMOGLOBIN 12.5 GM/dL (11.7-16.9); LYMPH % 24.1 % (8-40); MCH 31.1 pg (25.7-33.7); MCHC 33.7 g/dl (32.0-35.9); MEAN CELL VOLUME 92.4 fl (80-96); MEAN PLT VOLUME 7.6 fl (7.5-11.1); NEUT % 62.1 % (42.8-82.8); PLATELET COUNT 274 10^3/uL (134-434); RBC 4.01 M/mm3 (4.00-5.60); RDW 13.3 % (11.9-15.9); WHITE BLOOD COUNT 7.3 K/mm3 (4.0-10.0)
[2022-02-01 15:07] LABS: ALBUMIN 3.6 g/dl (3.4-5.0); BLOOD UREA NITROGEN 20.9 mg/dL (7-18); CALCIUM 10.1 mg/dL (8.5-10.1)
[2022-02-01 15:08] LABS: MAGNESIUM 2.2 mg/dL (1.8-2.4)
[2022-02-01 15:12] LABS: CREATININE 1.2 mg/dL (0.55-1.3); PHOSPHOROUS 3.1 mg/dL (2.5-4.9)
[2022-02-01 15:13] LABS: BILIRUBIN,TOTAL 0.3 mg/dL (0.2-1); TOT PROT 6.7 g/dl (6.4-8.2)
[2022-02-01 16:44] LABS: PH,URINE 6.5 (5.0-8.0); URINE APPEARANCE CLEAR; URINE BILIRUBIN NEGATIVE (NEGATIVE); URINE COLOR YELLOW; URINE GLUCOSE (UA) NEGATIVE (NEGATIVE); URINE KETONE NEGATIVE (NEGATIVE); URINE LEUK ESTERASE NEGATIVE (NEGATIVE); URINE NITRITE NEGATIVE (NEGATIVE); URINE PROTEIN NEGATIVE (NEGATIVE); URINE UROBILINOGEN 0.2 mg/dL (0.2-1.0)
[2022-02-01 21:19] VITALS: BMI 23.4
[2022-02-01] MEDS ORDERED: PNEUMOC 13-VAL CONJ-DIP CRM/PF 0.5 ML DISP.SYRIN IM ONE (21:29)
[2022-02-01] MEDS ORDERED: ATORVASTATIN CA 40 MG TABLET (FP) PO SCH (22:00)
[2022-02-02] MEDS ORDERED: CLOPIDOGREL BISULFATE 75 MG TABLET (FP) PO SCH (10:00)
[2022-02-02] MEDS ORDERED: ENOXAPARIN NA (PORCINE) 40 MG/0.4 ML DISP.SYRIN SQ SCH (10:00)
[2022-02-02] MEDS ORDERED: ENOXAPARIN NA (PORCINE) 30 MG/0.3 ML DISP.SYRIN SQ SCH (10:00)
[2022-02-02] MEDS ORDERED: MULTIVITAMINS (DAILY MVI) TABLET (FP) PO SCH ×2 (10:00)
[2022-02-02] MEDS ORDERED: SODIUM CHLORIDE 1,000 ML IV SCH (10:45)
[2022-02-02 18:13] VITALS: BP 132/78; PULSE 78; TEMP 98.4
== END 2022-02-02 18:24 | disposition home health service (06) ==
LOC: JER 12:18 → UNDOADMOB 16:11 → INTOOBSV 16:11 → JERBED 16:11 → J7W 20:37 → JERBED 02-02 11:58 → J7W 02-02 11:58
PROVIDERS: ADMIT Internal Medicine; ATTEND Internal Medicine
PROC: 3E023GC Introduction of Other Therapeutic Substance into Muscle, Percutaneous Approach (ICD-10-PCS; principal; 2022-02-02)
PROC: 3E0234Z Introduction of Serum, Toxoid and Vaccine into Muscle, Percutaneous Approach (ICD-10-PCS; 2022-02-02)
PROC: 3E0337Z Introduction of Electrolytic and Water Balance Substance into Peripheral Vein, Percutaneous Approach (ICD-10-PCS; 2022-02-02)
DX: I10 Essential (primary) hypertension (principal); E78.5 Hyperlipidemia, unspecified; R35.0 Frequency of micturition; R29.6 Repeated falls; Z29.9 Encounter for prophylactic measures, unspecified; Z86.73 Personal history of transient ischemic attack (TIA), and cerebral infarction without residual deficits; M54.30 Sciatica, unspecified side; M19.90 Unspecified osteoarthritis, unspecified site; D64.9 Anemia, unspecified; H91.90 Unspecified hearing loss, unspecified ear; Z99.89 Dependence on other enabling machines and devices
CPT/HCPCS: 36415; 70450-TC; 71045-TC-FY; 80053; 81003; 82550; 83735; 84100; 84443; 84484; 85025; 87086; 87186; 90670; 93005; 93010; 96360; 96372; 97116-GP; 97161-GP; 99285-25; C9803; G0378; U0003; U0005

== ENCOUNTER 2022-08-29 17:29 | Inpatient (IN) | payer OTHER ==
[2022-08-29] MEDS ORDERED: SODIUM CHLORIDE 0.9% 500 ML INFUS.BAG IV ONE (20:12)
[2022-08-29] MEDS ORDERED: ACETAMINOPHEN 1000 MG/100 ML BAG IVPB ONE (20:12)
[2022-08-29] MEDS ORDERED: ACETAMINOPHEN INJECTION 100 ML IVPB ONE (20:42)
[2022-08-29 20:46] LABS: BASO % 0.3 % (0-2.0); EOS % 1.4 % (0-4.5); HEMATOCRIT 38.1 % (35.4-49); HEMOGLOBIN 12.8 GM/dL (11.7-16.9); LYMPH % 4.2 % (8-40); MCH 30.8 pg (25.7-33.7); MCHC 33.7 g/dl (32.0-35.9); MEAN CELL VOLUME 91.2 fl (80-96); MONO % 6.3 % (3.8-10.2); NEUT % 87.8 % (42.8-82.8); PLATELET COUNT 239 10^3/uL (134-434); RBC 4.17 M/mm3 (4.00-5.60); RDW 14.1 % (11.9-15.9); WHITE BLOOD COUNT 8.7 K/mm3 (4.0-10.0)
[2022-08-29 20:47] LABS: URINE APPEARANCE CLEAR; URINE BILIRUBIN NEGATIVE (NEGATIVE); URINE COLOR YELLOW; URINE GLUCOSE (UA) NEGATIVE (NEGATIVE); URINE KETONE TRACE (NEGATIVE); URINE LEUK ESTERASE NEGATIVE (NEGATIVE); URINE NITRITE NEGATIVE (NEGATIVE); URINE PROTEIN TRACE (NEGATIVE); URINE UROBILINOGEN 0.2 mg/dL (0.2-1.0)
[2022-08-29 20:57] LABS: ACTIVATED PTT 28.5 SECONDS (25.2-36.5)
[2022-08-29 21:04] LABS: INR 1.23 (0.83-1.09); PROTHROMBIN TIME (PATIENT) 14.2 SEC (9.7-13.0)
[2022-08-29 21:14] LABS: ALBUMIN 3.7 g/dl (3.4-5.0); BLOOD UREA NITROGEN 20.2 mg/dL (7-18); CALCIUM 10.5 mg/dL (8.5-10.1); MAGNESIUM 1.8 mg/dL (1.8-2.4)
[2022-08-29 21:17] LABS: CREATININE 1.2 mg/dL (0.55-1.3); PHOSPHOROUS 1.6 mg/dL (2.5-4.9)
[2022-08-29 21:19] LABS: BILIRUBIN,TOTAL 0.5 mg/dL (0.2-1); TOT PROT 7.1 g/dl (6.4-8.2)
[2022-08-30] MEDS ORDERED: NAPH,MB-DB/K PH,MBDB POWDER PACKET ONE ×2 (08:23→14:40)
[2022-08-30 08:24] LABS: BASO % 0.2 % (0-2.0); EOS % 0.6 % (0-4.5); HEMATOCRIT 36.4 % (35.4-49); HEMOGLOBIN 12.5 GM/dL (11.7-16.9); LYMPH % 10.2 % (8-40); MCH 31.3 pg (25.7-33.7); MCHC 34.4 g/dl (32.0-35.9); MONO % 15.5 % (3.8-10.2); NEUT % 73.5 % (42.8-82.8); PLATELET COUNT 221 10^3/uL (134-434); WHITE BLOOD COUNT 6.6 K/mm3 (4.0-10.0)
[2022-08-30] MEDS: NAPH,MB-DB/K PH,MBDB POWDER PACKET PO SCH ×3 (08:35→22:16)
[2022-08-30 09:25] LABS: ALBUMIN 3.4 g/dl (3.4-5.0); BLOOD UREA NITROGEN 16.4 mg/dL (7-18); CALCIUM 9.6 mg/dL (8.5-10.1); MAGNESIUM 1.8 mg/dL (1.8-2.4)
[2022-08-30 09:28] LABS: PHOSPHOROUS 1.6 mg/dL (2.5-4.9)
[2022-08-30 09:29] LABS: BILIRUBIN,TOTAL 0.5 mg/dL (0.2-1); TOT PROT 6.5 g/dl (6.4-8.2)
[2022-08-30 09:30] LABS: CREATININE 1.1 mg/dL (0.55-1.3)
[2022-08-30] MEDS: amLODIPine BESYLATE 2.5 MG TABLET (FP) PO SCH (11:00)
[2022-08-30] MEDS: CLOPIDOGREL BISULFATE 75 MG TABLET (FP) PO SCH (11:00)
[2022-08-30] MEDS: ENOXAPARIN NA (PORCINE) 40 MG/0.4 ML DISP.SYRIN SQ SCH (11:00)
[2022-08-30] MEDS: MEMANTINE HCL 10 MG TABLET (FP) PO SCH (11:00)
[2022-08-30] MEDS: MULTIVITAMINS (DAILY MVI) TABLET (FP) PO SCH (11:00)
[2022-08-30] MEDS ORDERED: CLOPIDOGREL BISULFATE 75 MG TABLET (FP) ONE (11:02)
[2022-08-30] MEDS ORDERED: MULTIVITAMINS (DAILY MVI) TABLET (FP) ONE (11:02)
[2022-08-30] MEDS ORDERED: ENOXAPARIN NA (PORCINE) 40 MG/0.4 ML DISP.SYRIN SQ ONE (11:03)
[2022-08-30] MEDS ORDERED: amLODIPine BESYLATE 2.5 MG TABLET (FP) ONE (11:03)
[2022-08-30] MEDS ORDERED: REMDESIVIR 200 MG in SODIUM CHLORIDE 250 ML IVPB ONE (13:30)
[2022-08-30] MEDS ORDERED: ALBUTEROL SO4 HFA INHALER IH PRN (17:55)
[2022-08-30] MEDS ORDERED: SODIUM CHLORIDE 1,000 ML IV SCH (18:00)
[2022-08-30] MEDS ORDERED: DEXAMETHASONE SOD PHOSPHATE 10 MG/1 ML VIAL ONE (18:06)
[2022-08-30] MEDS: DEXAMETHASONE 2 MG TABLET PO SCH (18:20)
[2022-08-30 21:17] VITALS: BMI 22.9
[2022-08-30] MEDS: ATORVASTATIN CA 40 MG TABLET (FP) PO SCH (22:16)
[2022-08-31 07:43] LABS: BASO % 0.2 % (0-2.0); HEMATOCRIT 37.7 % (35.4-49); HEMOGLOBIN 12.5 GM/dL (11.7-16.9); LYMPH % 12.9 % (8-40); MCHC 33.2 g/dl (32.0-35.9); MEAN CELL VOLUME 90.4 fl (80-96); MEAN PLT VOLUME 7.4 fl (7.5-11.1); MONO % 11.9 % (3.8-10.2); PLATELET COUNT 222 10^3/uL (134-434); RBC 4.17 M/mm3 (4.00-5.60); WHITE BLOOD COUNT 7.1 K/mm3 (4.0-10.0)
[2022-08-31 08:29] LABS: CALCIUM 9.2 mg/dL (8.5-10.1)
[2022-08-31 08:30] LABS: ALBUMIN 2.9 g/dl (3.4-5.0); BLOOD UREA NITROGEN 19.1 mg/dL (7-18)
[2022-08-31 08:33] LABS: PHOSPHOROUS 3.7 mg/dL (2.5-4.9)
[2022-08-31 08:34] LABS: BILIRUBIN,TOTAL 0.4 mg/dL (0.2-1)
[2022-08-31] MEDS: MULTIVITAMINS (DAILY MVI) TABLET (FP) PO SCH (09:54)
[2022-08-31] MEDS: amLODIPine BESYLATE 2.5 MG TABLET (FP) PO SCH (09:54)
[2022-08-31] MEDS: REMDESIVIR 100 MG in SODIUM CHLORIDE 250 ML IVPB SCH (09:54)
[2022-08-31] MEDS: CLOPIDOGREL BISULFATE 75 MG TABLET (FP) PO SCH (09:54)
[2022-08-31] MEDS: MEMANTINE HCL 10 MG TABLET (FP) PO SCH (09:54)
[2022-08-31] MEDS: ENOXAPARIN NA (PORCINE) 40 MG/0.4 ML DISP.SYRIN SQ SCH (09:54)
[2022-08-31] MEDS: DEXAMETHASONE 2 MG TABLET PO SCH (12:19)
[2022-08-31] MEDS: ATORVASTATIN CA 40 MG TABLET (FP) PO SCH (21:22)
[2022-09-01 07:17] LABS: BASO % 0.1 % (0-2.0); HEMATOCRIT 40.9 % (35.4-49); HEMOGLOBIN 13.6 GM/dL (11.7-16.9); LYMPH % 12.4 % (8-40); MCH 30.2 pg (25.7-33.7); MCHC 33.1 g/dl (32.0-35.9); MEAN CELL VOLUME 91.3 fl (80-96); MEAN PLT VOLUME 7.9 fl (7.5-11.1); MONO % 10.2 % (3.8-10.2); NEUT % 77.3 % (42.8-82.8); PLATELET COUNT 251 10^3/uL (134-434); RBC 4.49 M/mm3 (4.00-5.60); RDW 14.1 % (11.9-15.9); WHITE BLOOD COUNT 10.5 K/mm3 (4.0-10.0)
[2022-09-01 07:44] LABS: ALBUMIN 3.3 g/dl (3.4-5.0); BLOOD UREA NITROGEN 22.2 mg/dL (7-18); CALCIUM 9.6 mg/dL (8.5-10.1)
[2022-09-01 07:48] LABS: BILIRUBIN,TOTAL 0.3 mg/dL (0.2-1); CREATININE 0.9 mg/dL (0.55-1.3); MAGNESIUM 2.2 mg/dL (1.8-2.4); TOT PROT 6.6 g/dl (6.4-8.2)
[2022-09-01] MEDS: ENOXAPARIN NA (PORCINE) 40 MG/0.4 ML DISP.SYRIN SQ SCH (10:09)
[2022-09-01] MEDS: CLOPIDOGREL BISULFATE 75 MG TABLET (FP) PO SCH (10:09)
[2022-09-01] MEDS: MULTIVITAMINS (DAILY MVI) TABLET (FP) PO SCH (10:09)
[2022-09-01] MEDS: MEMANTINE HCL 10 MG TABLET (FP) PO SCH (10:09)
[2022-09-01] MEDS: DEXAMETHASONE 2 MG TABLET PO SCH (10:09)
[2022-09-01] MEDS: amLODIPine BESYLATE 2.5 MG TABLET (FP) PO SCH (10:09)
[2022-09-01] MEDS: REMDESIVIR 100 MG in SODIUM CHLORIDE 250 ML IVPB SCH (10:10)
[2022-09-01] MEDS: ATORVASTATIN CA 40 MG TABLET (FP) PO SCH (21:53)
[2022-09-02 07:30] LABS: HEMATOCRIT 37.8 % (35.4-49); HEMOGLOBIN 13.1 GM/dL (11.7-16.9); LYMPH % 10.2 % (8-40); MCH 31.1 pg (25.7-33.7); MCHC 34.6 g/dl (32.0-35.9); MEAN CELL VOLUME 89.8 fl (80-96); MEAN PLT VOLUME 7.4 fl (7.5-11.1); MONO % 8.2 % (3.8-10.2); NEUT % 81.6 % (42.8-82.8); PLATELET COUNT 248 10^3/uL (134-434); RBC 4.21 M/mm3 (4.00-5.60); RDW 14.1 % (11.9-15.9)
[2022-09-02 07:56] LABS: CALCIUM 8.9 mg/dL (8.5-10.1)
[2022-09-02 07:57] LABS: ALBUMIN 2.9 g/dl (3.4-5.0); MAGNESIUM 1.9 mg/dL (1.8-2.4)
[2022-09-02 07:59] LABS: PHOSPHOROUS 2.4 mg/dL (2.5-4.9)
[2022-09-02 08:01] LABS: BILIRUBIN,TOTAL 0.4 mg/dL (0.2-1); TOT PROT 6.2 g/dl (6.4-8.2)
[2022-09-02] MEDS: amLODIPine BESYLATE 2.5 MG TABLET (FP) PO SCH (10:21)
[2022-09-02] MEDS: DEXAMETHASONE 2 MG TABLET PO SCH (10:21)
[2022-09-02] MEDS: ENOXAPARIN NA (PORCINE) 40 MG/0.4 ML DISP.SYRIN SQ SCH (10:22)
[2022-09-02] MEDS: MEMANTINE HCL 10 MG TABLET (FP) PO SCH (10:22)
[2022-09-02] MEDS: CLOPIDOGREL BISULFATE 75 MG TABLET (FP) PO SCH (10:22)
[2022-09-02] MEDS: MULTIVITAMINS (DAILY MVI) TABLET (FP) PO SCH (10:22)
[2022-09-02] MEDS: REMDESIVIR 100 MG in SODIUM CHLORIDE 250 ML IVPB SCH (12:16)
[2022-09-02] MEDS ORDERED: ALBUTEROL SO4 2.5/IPRATROPIUM 0.5 INH SOL 3 ML VIAL.NEB. NEB ONE (13:30)
[2022-09-02] MEDS ORDERED: LORazepam 0.5 MG TABLET PO ONE (21:07)
[2022-09-02] MEDS: ATORVASTATIN CA 40 MG TABLET (FP) PO SCH (21:23)
[2022-09-03 07:11] LABS: BASO % 0.1 % (0-2.0); HEMATOCRIT 38.2 % (35.4-49); HEMOGLOBIN 12.8 GM/dL (11.7-16.9); LYMPH % 8.9 % (8-40); MCH 29.9 pg (25.7-33.7); MCHC 33.5 g/dl (32.0-35.9); MEAN CELL VOLUME 89.2 fl (80-96); MEAN PLT VOLUME 7.7 fl (7.5-11.1); MONO % 6.7 % (3.8-10.2); NEUT % 84.3 % (42.8-82.8); PLATELET COUNT 246 10^3/uL (134-434); RBC 4.28 M/mm3 (4.00-5.60); RDW 14.1 % (11.9-15.9); WHITE BLOOD COUNT 12.7 K/mm3 (4.0-10.0)
[2022-09-03 07:48] LABS: ALBUMIN 2.9 g/dl (3.4-5.0)
[2022-09-03 07:49] LABS: BLOOD UREA NITROGEN 24.1 mg/dL (7-18)
[2022-09-03 07:51] LABS: BILIRUBIN,TOTAL 0.4 mg/dL (0.2-1)
[2022-09-03 07:53] LABS: CALCIUM 9.1 mg/dL (8.5-10.1)
[2022-09-03 07:54] LABS: MAGNESIUM 1.9 mg/dL (1.8-2.4)
[2022-09-03] MEDS: REMDESIVIR 100 MG in SODIUM CHLORIDE 250 ML IVPB SCH (10:43)
[2022-09-03] MEDS: MEMANTINE HCL 10 MG TABLET (FP) PO SCH (10:43)
[2022-09-03] MEDS: DEXAMETHASONE 2 MG TABLET PO SCH (10:43)
[2022-09-03] MEDS: CLOPIDOGREL BISULFATE 75 MG TABLET (FP) PO SCH (10:43)
[2022-09-03] MEDS: MULTIVITAMINS (DAILY MVI) TABLET (FP) PO SCH (10:43)
[2022-09-03] MEDS: amLODIPine BESYLATE 2.5 MG TABLET (FP) PO SCH (10:43)
[2022-09-03] MEDS: ENOXAPARIN NA (PORCINE) 40 MG/0.4 ML DISP.SYRIN SQ SCH (12:41)
[2022-09-03] MEDS ORDERED: METOCLOPRAMIDE HCL 10 MG TABLET (FP) PO ONE ×2 (18:37→21:45)
[2022-09-03] MEDS: ATORVASTATIN CA 40 MG TABLET (FP) PO SCH (21:39)
[2022-09-03] MEDS: LORazepam 0.5 MG TABLET PO PRN (21:48)
[2022-09-04 07:32] LABS: HEMATOCRIT 36.8 % (35.4-49); HEMOGLOBIN 12.9 GM/dL (11.7-16.9); LYMPH % 10.2 % (8-40); MCH 31.1 pg (25.7-33.7); MCHC 35.1 g/dl (32.0-35.9); MEAN CELL VOLUME 88.7 fl (80-96); MEAN PLT VOLUME 7.5 fl (7.5-11.1); MONO % 8.5 % (3.8-10.2); NEUT % 81.3 % (42.8-82.8); PLATELET COUNT 261 10^3/uL (134-434); RBC 4.15 M/mm3 (4.00-5.60); RDW 14.3 % (11.9-15.9)
[2022-09-04 07:47] LABS: ALBUMIN 2.7 g/dl (3.4-5.0); BLOOD UREA NITROGEN 26.8 mg/dL (7-18); CALCIUM 8.8 mg/dL (8.5-10.1)
[2022-09-04 07:52] LABS: BILIRUBIN,TOTAL 0.4 mg/dL (0.2-1); TOT PROT 5.7 g/dl (6.4-8.2)
[2022-09-04] MEDS: MULTIVITAMINS (DAILY MVI) TABLET (FP) PO SCH (10:21)
[2022-09-04] MEDS: DEXAMETHASONE 2 MG TABLET PO SCH (10:21)
[2022-09-04] MEDS: MEMANTINE HCL 10 MG TABLET (FP) PO SCH (10:21)
[2022-09-04] MEDS: CLOPIDOGREL BISULFATE 75 MG TABLET (FP) PO SCH (10:21)
[2022-09-04] MEDS: amLODIPine BESYLATE 2.5 MG TABLET (FP) PO SCH (10:21)
[2022-09-04] MEDS: ENOXAPARIN NA (PORCINE) 40 MG/0.4 ML DISP.SYRIN SQ SCH (10:21)
[2022-09-04] MEDS: ATORVASTATIN CA 40 MG TABLET (FP) PO SCH (21:19)
[2022-09-04] MEDS: LORazepam 0.5 MG TABLET PO PRN (21:19)
[2022-09-05] MEDS ORDERED: METOCLOPRAMIDE HCL 10 MG TABLET (FP) PO ONE (00:27)
[2022-09-05 08:06] LABS: HEMATOCRIT 36.7 % (35.4-49); HEMOGLOBIN 12.5 GM/dL (11.7-16.9); MCH 30.7 pg (25.7-33.7); MCHC 34.1 g/dl (32.0-35.9); MEAN PLT VOLUME 7.7 fl (7.5-11.1); PLATELET COUNT 270 10^3/uL (134-434); RBC 4.07 M/mm3 (4.00-5.60); RDW 14.2 % (11.9-15.9); WHITE BLOOD COUNT 13.2 K/mm3 (4.0-10.0)
[2022-09-05 08:31] LABS: CALCIUM 8.8 mg/dL (8.5-10.1)
[2022-09-05 08:32] LABS: ALBUMIN 2.6 g/dl (3.4-5.0); BLOOD UREA NITROGEN 27.2 mg/dL (7-18); MAGNESIUM 2.2 mg/dL (1.8-2.4)
[2022-09-05 08:33] LABS: BILIRUBIN,TOTAL 0.4 mg/dL (0.2-1); TOT PROT 5.6 g/dl (6.4-8.2)
[2022-09-05 09:57] LABS: ANISOCYTOSIS 0; HELMET CELLS 0; HOWELL-JOLLY BODIES 0; MACROCYTOSIS 0; OVALOCYTE 0; ROULEAU 0; SICKELED CELLS 0; TARGET CELLS 0; TEAR DROP CELLS 0; TOXIC GRANULATION 0
[2022-09-05] MEDS ORDERED: chlorproMAZINE HCL 25 MG/1 ML AMP IM ONE (10:13)
[2022-09-05] MEDS: MULTIVITAMINS (DAILY MVI) TABLET (FP) PO SCH (10:27)
[2022-09-05] MEDS: CLOPIDOGREL BISULFATE 75 MG TABLET (FP) PO SCH (10:27)
[2022-09-05] MEDS: ENOXAPARIN NA (PORCINE) 40 MG/0.4 ML DISP.SYRIN SQ SCH (10:27)
[2022-09-05] MEDS: amLODIPine BESYLATE 2.5 MG TABLET (FP) PO SCH (10:27)
[2022-09-05] MEDS: DEXAMETHASONE 2 MG TABLET PO SCH (10:27)
[2022-09-05] MEDS: MEMANTINE HCL 10 MG TABLET (FP) PO SCH (10:27)
[2022-09-05 15:27] VITALS: BP 119/64; PULSE 70; RESP 16; TEMP 98
== END 2022-09-05 18:06 | DRG 178 ==
LOC: JER 17:29 → JERBED 23:08 → J4W 08-30 18:53
PROVIDERS: ADMIT Internal Medicine; ATTEND Nurse Practitioner Acute Care
PROC: XW033E5 Introduction of Remdesivir Anti-infective into Peripheral Vein, Percutaneous Approach, New Technology Group 5 (ICD-10-PCS; principal; 2022-08-30)
PROC: 3E0333Z Introduction of Anti-inflammatory into Peripheral Vein, Percutaneous Approach (ICD-10-PCS; 2022-08-30)
DX: U07.1 COVID-19 (principal); I24.8 Other forms of acute ischemic heart disease; K40.30 Unilateral inguinal hernia, with obstruction, without gangrene, not specified as recurrent; I10 Essential (primary) hypertension; E78.5 Hyperlipidemia, unspecified; H91.93 Unspecified hearing loss, bilateral; R55 Syncope and collapse; R00.0 Tachycardia, unspecified; F03.90 Unspecified dementia, unspecified severity, without behavioral disturbance, psychotic disturbance, mood disturbance, and anxiety; E83.39 Other disorders of phosphorus metabolism; R29.6 Repeated falls; H91.90 Unspecified hearing loss, unspecified ear; R63.0 Anorexia; I51.7 Cardiomegaly; R74.8 Abnormal levels of other serum enzymes; W18.30XA Fall on same level, unspecified, initial encounter; Y92.009 Unspecified place in unspecified non-institutional (private) residence as the place of occurrence of the external cause; Z96.651 Presence of right artificial knee joint; Z86.73 Personal history of transient ischemic attack (TIA), and cerebral infarction without residual deficits; Z68.23 Body mass index [BMI] 23.0-23.9, adult
CPT/HCPCS: 36415; 70450-TC; 71045-TC-FY; 72125-TC; 72170-TC-FY; 80053; 80061; 81003; 82550; 82553; 82962; 83036; 83605; 83615; 83735; 84100; 84443; 84484; 85025; 85379; 85610; 85730; 86140; 87040; 87086; 93005; 93010; 94010; 97116-GP; 97161-GP; 99285-25; C9399; C9803-CS; U0003; U0005

== ENCOUNTER 2023-05-23 12:59 | Observation (INO) | payer OTHER ==
[2023-05-23 13:38] VITALS: BMI 22.6
[2023-05-23 14:38] LABS: BASO % 0.4 % (0-2.0); EOS % 5.1 % (0-4.5); HEMATOCRIT 38.4 % (35.4-49); HEMOGLOBIN 12.8 GM/dL (11.7-16.9); MCHC 33.2 g/dl (32.0-35.9); MEAN CELL VOLUME 93.4 fl (80-96); MONO % 9.6 % (3.8-10.2); NEUT % 70.9 % (42.8-82.8); PLATELET COUNT 225 10^3/uL (134-434); RBC 4.11 M/mm3 (4.00-5.60); RDW 13.3 % (11.9-15.9); WHITE BLOOD COUNT 8.2 K/mm3 (4.0-10.0)
[2023-05-23 16:21] LABS: POTASSIUM 4.1 mmol/L (3.5-5.1)
[2023-05-23 16:24] LABS: ALBUMIN 3.4 g/dl (3.4-5.0); CALCIUM 10.2 mg/dL (8.5-10.1); MAGNESIUM 2.1 mg/dL (1.8-2.4)
[2023-05-23 16:27] LABS: CREATININE 1.3 mg/dL (0.55-1.3)
[2023-05-23 16:29] LABS: BILIRUBIN,TOTAL 0.5 mg/dL (0.2-1); TOT PROT 6.5 g/dl (6.4-8.2)
[2023-05-23] MEDS ORDERED: SODIUM CHLORIDE 0.9% 500 ML INFUS.BAG IV ONE (16:58)
[2023-05-23 18:07] LABS: EPI CELLS 18 /uL (0-25.1); HYALINE CASTS 1 /uL (0-3.1); PH,URINE 5.5 (5.0-8.0); URINE APPEARANCE CLEAR; URINE BACTERIA 90 /uL (0-1359); URINE BILIRUBIN NEGATIVE (NEGATIVE); URINE COLOR YELLOW; URINE GLUCOSE (UA) NEGATIVE (NEGATIVE); URINE KETONE TRACE (NEGATIVE); URINE LEUK ESTERASE TRACE (NEGATIVE); URINE NITRITE NEGATIVE (NEGATIVE); URINE PROTEIN TRACE (NEGATIVE); URINE RBC 23 /uL (0-23.9); URINE UROBILINOGEN 0.2 mg/dL (0.2-1.0); URINE WBC 27 /uL (0-25.8)
[2023-05-23] MEDS: ATORVASTATIN CA 40 MG TABLET (FP) PO SCH (21:46)
[2023-05-23] MEDS ORDERED: BUDESONIDE/FORMETEROL FUMARATE 80/4.5 mcg INHALER IH SCH (23:45)
[2023-05-24 08:40] LABS: POTASSIUM 4.1 mmol/L (3.5-5.1)
[2023-05-24 08:42] LABS: ALBUMIN 3.1 g/dl (3.4-5.0); CALCIUM 9.6 mg/dL (8.5-10.1)
[2023-05-24 08:44] LABS: BLOOD UREA NITROGEN 16.2 mg/dL (7-18)
[2023-05-24 08:45] LABS: CREATININE 0.9 mg/dL (0.55-1.3)
[2023-05-24 08:47] LABS: BILIRUBIN,TOTAL 0.4 mg/dL (0.2-1)
[2023-05-24 09:04] LABS: HEMATOCRIT 36.1 % (35.4-49); HEMOGLOBIN 11.9 GM/dL (11.7-16.9); MCH 30.1 pg (25.7-33.7); MEAN PLT VOLUME 7.4 fl (7.5-11.1); PLATELET COUNT 214 10^3/uL (134-434); RBC 3.96 M/mm3 (4.00-5.60); RDW 13.9 % (11.9-15.9); WHITE BLOOD COUNT 7.1 K/mm3 (4.0-10.0)
[2023-05-24] MEDS: CEFTRIAXONE 1 GM in DEXTROSE 5%-WATER - 50 ML IVPB SCH (10:26)
[2023-05-24] MEDS: CLOPIDOGREL BISULFATE 75 MG TABLET (FP) PO SCH (10:27)
[2023-05-24] MEDS: MEMANTINE HCL 10 MG TABLET (FP) PO SCH (10:27)
[2023-05-24] MEDS: TAMSULOSIN HCL 0.4 MG CAP PO SCH (10:27)
[2023-05-24] MEDS: amLODIPine BESYLATE 2.5 MG TABLET (FP) PO SCH (10:27)
[2023-05-24] MEDS: ENOXAPARIN NA (PORCINE) 40 MG/0.4 ML DISP.SYRIN SQ SCH (10:27)
[2023-05-24] MEDS: SOLIFENACIN SUCCINATE 5 MG TAB PO SCH (10:27)
[2023-05-24] MEDS: predniSONE 20 MG TABLET (UD) PO SCH (10:27)
[2023-05-24] MEDS: ATORVASTATIN CA 40 MG TABLET (FP) PO SCH (21:56)
[2023-05-25] MEDS: predniSONE 20 MG TABLET (UD) PO SCH (10:41)
[2023-05-25] MEDS: amLODIPine BESYLATE 2.5 MG TABLET (FP) PO SCH (10:41)
[2023-05-25] MEDS: SOLIFENACIN SUCCINATE 5 MG TAB PO SCH (10:42)
[2023-05-25] MEDS: MEMANTINE HCL 10 MG TABLET (FP) PO SCH (10:42)
[2023-05-25] MEDS: ENOXAPARIN NA (PORCINE) 40 MG/0.4 ML DISP.SYRIN SQ SCH (10:42)
[2023-05-25] MEDS: CLOPIDOGREL BISULFATE 75 MG TABLET (FP) PO SCH (10:42)
[2023-05-25] MEDS: TAMSULOSIN HCL 0.4 MG CAP PO SCH (10:47)
[2023-05-25] MEDS ORDERED: QUEtiapine FUMARATE 25 MG TABLET PO ONE (15:25)
[2023-05-25] MEDS: CEFTRIAXONE 1 GM in DEXTROSE 5%-WATER - 50 ML IVPB SCH (15:59)
[2023-05-25] MEDS: QUEtiapine FUMARATE 25 MG TABLET PO SCH (21:17)
[2023-05-25] MEDS: ATORVASTATIN CA 40 MG TABLET (FP) PO SCH (21:17)
[2023-05-25] MEDS ORDERED: QUEtiapine FUMARATE 25 MG TABLET PO SCH (22:00)
[2023-05-26 09:52] LABS: BASO % 0.2 % (0-2.0); EOS % 0.1 % (0-4.5); HEMATOCRIT 37.3 % (35.4-49); HEMOGLOBIN 12.5 GM/dL (11.7-16.9); MCH 30.5 pg (25.7-33.7); MCHC 33.4 g/dl (32.0-35.9); MEAN CELL VOLUME 91.1 fl (80-96); MEAN PLT VOLUME 7.7 fl (7.5-11.1); NEUT % 72.7 % (42.8-82.8); PLATELET COUNT 272 10^3/uL (134-434); RBC 4.09 M/mm3 (4.00-5.60); RDW 13.3 % (11.9-15.9); WHITE BLOOD COUNT 9.9 K/mm3 (4.0-10.0)
[2023-05-26 10:02] LABS: POTASSIUM 4.2 mmol/L (3.5-5.1)
[2023-05-26 10:11] LABS: ALBUMIN 3.1 g/dl (3.4-5.0)
[2023-05-26 10:12] LABS: BLOOD UREA NITROGEN 21.6 mg/dL (7-18); CALCIUM 10.1 mg/dL (8.5-10.1)
[2023-05-26 10:15] LABS: CREATININE 1.1 mg/dL (0.55-1.3)
[2023-05-26 10:16] LABS: BILIRUBIN,TOTAL 0.7 mg/dL (0.2-1); TOT PROT 6.1 g/dl (6.4-8.2)
[2023-05-26] MEDS: TAMSULOSIN HCL 0.4 MG CAP PO SCH (10:48)
[2023-05-26] MEDS: SOLIFENACIN SUCCINATE 5 MG TAB PO SCH (10:48)
[2023-05-26] MEDS: ENOXAPARIN NA (PORCINE) 40 MG/0.4 ML DISP.SYRIN SQ SCH (10:48)
[2023-05-26] MEDS: predniSONE 10 MG TABLET (UD) PO SCH (10:48)
[2023-05-26] MEDS: CLOPIDOGREL BISULFATE 75 MG TABLET (FP) PO SCH (10:48)
[2023-05-26] MEDS: amLODIPine BESYLATE 2.5 MG TABLET (FP) PO SCH (10:49)
[2023-05-26] MEDS: MEMANTINE HCL 10 MG TABLET (FP) PO SCH (10:49)
[2023-05-26] MEDS: QUEtiapine FUMARATE 25 MG TABLET PO SCH ×2 (12:27→23:09)
[2023-05-26] MEDS: ATORVASTATIN CA 40 MG TABLET (FP) PO SCH (21:58)
[2023-05-27] MEDS: TAMSULOSIN HCL 0.4 MG CAP PO SCH (08:18)
[2023-05-27] MEDS: MEMANTINE HCL 10 MG TABLET (FP) PO SCH (09:41)
[2023-05-27] MEDS: QUEtiapine FUMARATE 25 MG TABLET PO SCH ×2 (09:41→21:38)
[2023-05-27] MEDS: predniSONE 10 MG TABLET (UD) PO SCH (09:42)
[2023-05-27] MEDS: SOLIFENACIN SUCCINATE 5 MG TAB PO SCH (09:42)
[2023-05-27] MEDS: ENOXAPARIN NA (PORCINE) 40 MG/0.4 ML DISP.SYRIN SQ SCH (09:42)
[2023-05-27] MEDS: amLODIPine BESYLATE 2.5 MG TABLET (FP) PO SCH (09:42)
[2023-05-27] MEDS: CLOPIDOGREL BISULFATE 75 MG TABLET (FP) PO SCH (09:42)
[2023-05-27] MEDS: ATORVASTATIN CA 40 MG TABLET (FP) PO SCH (21:38)
[2023-05-28] MEDS: QUEtiapine FUMARATE 25 MG TABLET PO SCH ×2 (09:55→21:17)
[2023-05-28] MEDS: ENOXAPARIN NA (PORCINE) 40 MG/0.4 ML DISP.SYRIN SQ SCH (09:55)
[2023-05-28] MEDS: MEMANTINE HCL 10 MG TABLET (FP) PO SCH (09:56)
[2023-05-28] MEDS: CLOPIDOGREL BISULFATE 75 MG TABLET (FP) PO SCH (09:56)
[2023-05-28] MEDS: SOLIFENACIN SUCCINATE 5 MG TAB PO SCH (09:56)
[2023-05-28] MEDS: amLODIPine BESYLATE 2.5 MG TABLET (FP) PO SCH (09:56)
[2023-05-28] MEDS: TAMSULOSIN HCL 0.4 MG CAP PO SCH (09:56)
[2023-05-28] MEDS ORDERED: predniSONE 20 MG TABLET (UD) PO SCH (10:00)
[2023-05-28] MEDS: ATORVASTATIN CA 40 MG TABLET (FP) PO SCH (21:18)
[2023-05-29] MEDS: CLOPIDOGREL BISULFATE 75 MG TABLET (FP) PO SCH (09:25)
[2023-05-29] MEDS: ENOXAPARIN NA (PORCINE) 40 MG/0.4 ML DISP.SYRIN SQ SCH (09:26)
[2023-05-29] MEDS: amLODIPine BESYLATE 2.5 MG TABLET (FP) PO SCH (09:26)
[2023-05-29] MEDS: TAMSULOSIN HCL 0.4 MG CAP PO SCH (09:26)
[2023-05-29] MEDS: SOLIFENACIN SUCCINATE 5 MG TAB PO SCH (09:26)
[2023-05-29] MEDS: MEMANTINE HCL 10 MG TABLET (FP) PO SCH (09:26)
[2023-05-29 09:37] LABS: HEMATOCRIT 41.5 % (35.4-49); HEMOGLOBIN 13.6 GM/dL (11.7-16.9); MCH 30.2 pg (25.7-33.7); MCHC 32.8 g/dl (32.0-35.9); MEAN PLT VOLUME 7.8 fl (7.5-11.1); PLATELET COUNT 291 10^3/uL (134-434); RBC 4.51 M/mm3 (4.00-5.60); RDW 13.2 % (11.9-15.9); WHITE BLOOD COUNT 11.3 K/mm3 (4.0-10.0)
[2023-05-29 10:01] LABS: BLOOD UREA NITROGEN 26.9 mg/dL (7-18)
[2023-05-29 10:03] LABS: CALCIUM 10.1 mg/dL (8.5-10.1)
[2023-05-29 10:04] LABS: CREATININE 1.1 mg/dL (0.55-1.3); MAGNESIUM 2.2 mg/dL (1.8-2.4); PHOSPHOROUS 2.3 mg/dL (2.5-4.9)
[2023-05-29 11:32] LABS: ANISOCYTOSIS 0; MACROCYTOSIS 0
[2023-05-29] MEDS ORDERED: NAPH,MB-DB/K PH,MBDB POWDER PACKET PO ONE (11:54)
[2023-05-29] MEDS ORDERED: SODIUM PHOSPHATE - 15 MM in SODIUM CHLORIDE 250 ML IVPB ONE (13:00)
[2023-05-29] MEDS: QUEtiapine FUMARATE 25 MG TABLET PO SCH (21:43)
[2023-05-29] MEDS: ATORVASTATIN CA 40 MG TABLET (FP) PO SCH (21:44)
[2023-05-30 07:13] VITALS: RESP 18
[2023-05-30] MEDS: MEMANTINE HCL 10 MG TABLET (FP) PO SCH (09:31)
[2023-05-30] MEDS: ENOXAPARIN NA (PORCINE) 40 MG/0.4 ML DISP.SYRIN SQ SCH (09:31)
[2023-05-30] MEDS: SOLIFENACIN SUCCINATE 5 MG TAB PO SCH (09:31)
[2023-05-30] MEDS: CLOPIDOGREL BISULFATE 75 MG TABLET (FP) PO SCH (09:31)
[2023-05-30] MEDS: TAMSULOSIN HCL 0.4 MG CAP PO SCH (09:31)
[2023-05-30] MEDS: amLODIPine BESYLATE 2.5 MG TABLET (FP) PO SCH (09:31)
[2023-05-30 11:57] VITALS: BP 127/58; PULSE 62; TEMP 98.5
== END 2023-05-30 13:27 | disposition home or self-care (01) ==
LOC: JER 12:59 → UNDOADMOB 16:59 → JERBED 16:59 → J5S 20:05 → JERBED 20:05 → INTOOBSV 20:14 → OBSVTOIN 20:14 → JERBED 05-24 12:48 → J5S 05-24 12:48
PROVIDERS: ADMIT Internal Medicine; ATTEND Internal Medicine
PROC: 3E023GC Introduction of Other Therapeutic Substance into Muscle, Percutaneous Approach (ICD-10-PCS; principal; 2023-05-24)
DX: E86.0 Dehydration (principal); R05.9 Cough, unspecified; F03.90 Unspecified dementia, unspecified severity, without behavioral disturbance, psychotic disturbance, mood disturbance, and anxiety; M19.90 Unspecified osteoarthritis, unspecified site; D61.9 Aplastic anemia, unspecified; E78.5 Hyperlipidemia, unspecified; Z86.73 Personal history of transient ischemic attack (TIA), and cerebral infarction without residual deficits; R26.2 Difficulty in walking, not elsewhere classified; I25.10 Atherosclerotic heart disease of native coronary artery without angina pectoris; I11.9 Hypertensive heart disease without heart failure; N40.0 Benign prostatic hyperplasia without lower urinary tract symptoms; F39 Unspecified mood [affective] disorder; R62.7 Adult failure to thrive
CPT/HCPCS: 0241U-QW; 36415; 70450-TC; 71045-TC-FY; 71250-TC; 73030-TC-LT-FY; 73200-TC-RT; 80048; 80053; 81003; 82962; 83735; 84100; 84439; 84443; 84484; 85025; 85027; 87086; 93005; 93010; 96372; 97116-GP; 97162-GP; 99285-25; G0378

== ENCOUNTER 2024-04-11 17:57 | Inpatient (IN) | payer OTHER ==
[2024-04-11 19:31] LABS: BASO % 0.3 % (0-2.0); EOS % 1.5 % (0-4.5); HEMATOCRIT 44.7 % (35.4-49); HEMOGLOBIN 14.9 GM/dL (11.7-16.9); LYMPH % 10.5 % (8-40); MCH 31.2 pg (25.7-33.7); MCHC 33.3 g/dl (32.0-35.9); MEAN CELL VOLUME 93.6 fl (80-96); MEAN PLT VOLUME 8.6 fl (7.5-11.1); MONO % 4.7 % (3.8-10.2); PLATELET COUNT 289 10^3/uL (134-434); RBC 4.78 M/mm3 (4.00-5.60); RDW 14.2 % (11.9-15.9); WHITE BLOOD COUNT 15.5 K/mm3 (4.0-10.0)
[2024-04-11 19:40] LABS: INR 1.18 (0.83-1.09); PROTHROMBIN TIME (PATIENT) 13.3 SEC (9.7-13.0)
[2024-04-11 19:41] LABS: POTASSIUM 4.1 mmol/L (3.5-5.1)
[2024-04-11 19:42] LABS: ACTIVATED PTT 33.4 SECONDS (25.2-36.5)
[2024-04-11 19:43] LABS: CALCIUM 11.2 mg/dL (8.5-10.1)
[2024-04-11 19:45] LABS: ALBUMIN 3.2 g/dl (3.4-5.0); BLOOD UREA NITROGEN 37.2 mg/dL (7-18); MAGNESIUM 2.5 mg/dL (1.8-2.4)
[2024-04-11 19:47] LABS: CREATININE 1.7 mg/dL (0.55-1.3); PHOSPHOROUS 1.8 mg/dL (2.5-4.9)
[2024-04-11 19:49] LABS: BILIRUBIN,TOTAL 0.2 mg/dL (0.2-1); TOT PROT 6.9 g/dl (6.4-8.2)
[2024-04-11] MEDS ORDERED: MAGNESIUM SULF 50% (8.12 MEQ/2 ML-1 GM VIAL) IVPB ONE (19:56)
[2024-04-11] MEDS: SODIUM CHLORIDE 0.9% 500 ML INFUS.BAG IV ONE ×2 (20:04→20:59)
[2024-04-11] MEDS: NAPH,MB-DB/K PH,MBDB POWDER PACKET PO ONE (20:59)
[2024-04-11] MEDS: SODIUM CHLORIDE 0.45% 1,000 ML IV SCH ×2 (20:59→23:30)
[2024-04-11 21:25] LABS: PH,URINE 5.5 (5.0-8.0); URINE APPEARANCE CLOUDY; URINE BILIRUBIN NEGATIVE (NEGATIVE); URINE COLOR YELLOW; URINE GLUCOSE (UA) NEGATIVE (NEGATIVE); URINE KETONE TRACE (NEGATIVE); URINE LEUK ESTERASE NEGATIVE (NEGATIVE); URINE NITRITE NEGATIVE (NEGATIVE); URINE PROTEIN NEGATIVE (NEGATIVE); URINE UROBILINOGEN 0.2 mg/dL (0.2-1.0)
[2024-04-12 03:05] LABS: CHLORIDE 132 mmol/L (98-107); POTASSIUM 3.8 mmol/L (3.5-5.1)
[2024-04-12 03:07] LABS: BLOOD UREA NITROGEN 32.1 mg/dL (7-18); GLUCOSE,RANDOM 115 mg/dL (74-106)
[2024-04-12 03:36] LABS: ANION GAP -2 mmol/L (4-13); CALCIUM 10.8 mg/dL (8.5-10.1); CO2 31 mmol/L (21-32); CREATININE 1.5 mg/dL (0.55-1.3); SODIUM 161 mmol/L (136-145)
[2024-04-12] MEDS: TAMSULOSIN HCL 0.4 MG CAP PO SCH (10:08)
[2024-04-12] MEDS: MEMANTINE HCL 10 MG TABLET (FP) PO SCH (10:08)
[2024-04-12] MEDS: amLODIPine BESYLATE 2.5 MG TABLET (FP) PO SCH (10:08)
[2024-04-12] MEDS: SODIUM CHLORIDE 0.45% 1,000 ML IV SCH (10:09)
[2024-04-12 10:15] LABS: HEMATOCRIT 41.1 % (35.4-49); HEMOGLOBIN 13.8 GM/dL (11.7-16.9); MCH 31.6 pg (25.7-33.7); MCHC 33.6 g/dl (32.0-35.9); MEAN CELL VOLUME 94.1 fl (80-96); MEAN PLT VOLUME 9.2 fl (7.5-11.1); PLATELET COUNT 257 10^3/uL (134-434); RBC 4.36 M/mm3 (4.00-5.60); RDW 14.2 % (11.9-15.9); WHITE BLOOD COUNT 10.9 K/mm3 (4.0-10.0)
[2024-04-12 10:32] LABS: POTASSIUM 3.8 mmol/L (3.5-5.1)
[2024-04-12 10:34] LABS: BLOOD UREA NITROGEN 31.4 mg/dL (7-18); CALCIUM 10.6 mg/dL (8.5-10.1)
[2024-04-12 10:36] LABS: PHOSPHOROUS 2.7 mg/dL (2.5-4.9)
[2024-04-12 10:38] LABS: CREATININE 1.5 mg/dL (0.55-1.3)
[2024-04-12] MEDS: valACYclovir HCL 500 MG TABLET (FP) PO SCH (16:28)
[2024-04-12] MEDS: SODIUM CHLORIDE 0.9% 500 ML INFUS.BAG IV ONE (17:00)
[2024-04-12] MEDS: ATORVASTATIN CA 40 MG TABLET (FP) PO SCH (21:32)
[2024-04-12] MEDS: DEXTROSE 5%-0.45% SALINE 1,000 ML IV SCH (21:33)
[2024-04-13 07:58] LABS: HEMATOCRIT 33.7 % (35.4-49); HEMOGLOBIN 11.2 GM/dL (11.7-16.9); MCH 31.4 pg (25.7-33.7); MCHC 33.3 g/dl (32.0-35.9); MEAN CELL VOLUME 94.3 fl (80-96); MEAN PLT VOLUME 9.1 fl (7.5-11.1); PLATELET COUNT 200 10^3/uL (134-434); RBC 3.57 M/mm3 (4.00-5.60); RDW 13.9 % (11.9-15.9); WHITE BLOOD COUNT 8.9 K/mm3 (4.0-10.0)
[2024-04-13 08:10] LABS: POTASSIUM 3.5 mmol/L (3.5-5.1)
[2024-04-13 08:11] LABS: POTASSIUM 3.4 mmol/L (3.5-5.1)
[2024-04-13 08:14] LABS: BLOOD UREA NITROGEN 23.6 mg/dL (7-18)
[2024-04-13 08:17] LABS: CALCIUM 9.1 mg/dL (8.5-10.1); CREATININE 1.2 mg/dL (0.55-1.3); MAGNESIUM 2.1 mg/dL (1.8-2.4)
[2024-04-13 08:18] LABS: CALCIUM 9.2 mg/dL (8.5-10.1)
[2024-04-13 08:19] LABS: ALBUMIN 2.5 g/dl (3.4-5.0); BLOOD UREA NITROGEN 23.6 mg/dL (7-18)
[2024-04-13 08:22] LABS: CREATININE 1.3 mg/dL (0.55-1.3)
[2024-04-13 08:23] LABS: BILIRUBIN,TOTAL 0.5 mg/dL (0.2-1)
[2024-04-13 08:24] LABS: TOT PROT 5.2 g/dl (6.4-8.2)
[2024-04-13] MEDS: POTASSIUM PHOSPHATE 30 MM in DEXTROSE 5%-WATER - 500 ML IVPB ONE (10:04)
[2024-04-13] MEDS: NAPH,MB-DB/K PH,MBDB POWDER PACKET PO ONE (14:18)
[2024-04-13] MEDS: LACTATED RINGERS SOLUTION 1,000 ML/1,000 ML INFUS.BAG IV ONE (14:52)
[2024-04-13] MEDS: POTASSIUM CHLORIDE ORAL LIQUID 20 MEQ/15 ML PO ONE (16:21)
[2024-04-13] MEDS: DEXTROSE 5%-0.45% SALINE 1,000 ML IV SCH (16:21)
[2024-04-13 20:50] LABS: CALCIUM 8.7 mg/dL (8.5-10.1)
[2024-04-13 20:51] LABS: BLOOD UREA NITROGEN 17.2 mg/dL (7-18)
[2024-04-13 20:54] LABS: CREATININE 1.3 mg/dL (0.55-1.3)
[2024-04-13] MEDS: HEPARIN NA (PORCINE) 5,000 UNITS/ML 1ML VIAL SQ SCH (21:05)
[2024-04-14 08:19] LABS: HEMATOCRIT 32.8 % (35.4-49); HEMOGLOBIN 10.9 GM/dL (11.7-16.9); MCHC 33.2 g/dl (32.0-35.9); MEAN CELL VOLUME 93.3 fl (80-96); MEAN PLT VOLUME 9.2 fl (7.5-11.1); PLATELET COUNT 179 10^3/uL (134-434); RBC 3.52 M/mm3 (4.00-5.60); RDW 13.6 % (11.9-15.9); WHITE BLOOD COUNT 6.4 K/mm3 (4.0-10.0)
[2024-04-14 08:31] LABS: POTASSIUM 3.5 mmol/L (3.5-5.1)
[2024-04-14 09:03] LABS: ALBUMIN 2.2 g/dl (3.4-5.0); BLOOD UREA NITROGEN 14.3 mg/dL (7-18); CALCIUM 8.4 mg/dL (8.5-10.1)
[2024-04-14 09:06] LABS: CREATININE 1.2 mg/dL (0.55-1.3); PHOSPHOROUS 2.6 mg/dL (2.5-4.9)
[2024-04-14 09:08] LABS: TOT PROT 4.9 g/dl (6.4-8.2)
[2024-04-14 09:09] LABS: BILIRUBIN,TOTAL 0.5 mg/dL (0.2-1)
[2024-04-14] MEDS: amLODIPine BESYLATE 2.5 MG TABLET (FP) PO SCH (10:53)
[2024-04-14] MEDS: MEMANTINE HCL 10 MG TABLET (FP) PO SCH (10:54)
[2024-04-14] MEDS: valACYclovir HCL 500 MG TABLET (FP) PO SCH (10:54)
[2024-04-14] MEDS: TAMSULOSIN HCL 0.4 MG CAP PO SCH (10:54)
[2024-04-14] MEDS: POTASSIUM CHLORIDE 10 MEQ in DEXTROSE 5%-WATER - 1,000 ML IV SCH (15:28)
[2024-04-14] MEDS: ATORVASTATIN CA 40 MG TABLET (FP) PO SCH (21:36)
[2024-04-15 06:50] LABS: HEMOGLOBIN 12.3 GM/dL (11.7-16.9); MCH 31.3 pg (25.7-33.7); MCHC 33.3 g/dl (32.0-35.9); MEAN PLT VOLUME 8.8 fl (7.5-11.1); PLATELET COUNT 202 10^3/uL (134-434); RBC 3.93 M/mm3 (4.00-5.60); RDW 13.5 % (11.9-15.9); WHITE BLOOD COUNT 9.1 K/mm3 (4.0-10.0)
[2024-04-15 07:07] LABS: POTASSIUM 4.1 mmol/L (3.5-5.1)
[2024-04-15 07:08] LABS: CALCIUM 9.3 mg/dL (8.5-10.1)
[2024-04-15 07:12] LABS: CREATININE 1.3 mg/dL (0.55-1.3)
[2024-04-15] MEDS: ACETAMINOPHEN 325 MG TABLET (FP) PO PRN (08:44)
[2024-04-15] MEDS: POTASSIUM CHLORIDE 10 MEQ in DEXTROSE 5%-WATER - 1,000 ML IV SCH (15:26)
[2024-04-16 08:58] LABS: HEMOGLOBIN 11.9 GM/dL (11.7-16.9); MCH 31.5 pg (25.7-33.7); MCHC 34.1 g/dl (32.0-35.9); MEAN CELL VOLUME 92.4 fl (80-96); PLATELET COUNT 185 10^3/uL (134-434); RBC 3.79 M/mm3 (4.00-5.60); RDW 13.9 % (11.9-15.9); WHITE BLOOD COUNT 6.3 K/mm3 (4.0-10.0)
[2024-04-16 09:03] LABS: POTASSIUM 3.9 mmol/L (3.5-5.1)
[2024-04-16 09:08] LABS: ALBUMIN 2.4 g/dl (3.4-5.0); BLOOD UREA NITROGEN 12.7 mg/dL (7-18); CALCIUM 8.5 mg/dL (8.5-10.1)
[2024-04-16 09:11] LABS: CREATININE 1.2 mg/dL (0.55-1.3)
[2024-04-16 09:13] LABS: BILIRUBIN,TOTAL 0.4 mg/dL (0.2-1); TOT PROT 5.3 g/dl (6.4-8.2)
[2024-04-16] MEDS ORDERED: guaiFENesin 200 MG/10 ML 10 ML UNIT-DOSE CUPS PO PRN (13:12)
[2024-04-16] MEDS ORDERED: MIDAZOLAM IN 0.9 % SOD.CHLORID 1 MG/1 ML PLAST..BAG ONE (15:20)
[2024-04-16] MEDS ORDERED: RAPID SEQUENCE INTUBATION KIT NR ONE (15:22)
[2024-04-16] MEDS: MIDAZOLAM IN 0.9 % SOD.CHLORID 100 MG/100 ML PLAST..BAG IVPB SCH (16:28)
[2024-04-16] MEDS: DEXMEDETOMIDINE PREMIX 400 MCG/100 ML BAG IVPB SCH (16:30)
[2024-04-16 16:49] LABS: ALLENS TEST POSITIVE; ARTERIAL BLD GAS O2 SATURATION 99.3 % (95-98); ARTERIAL BLOOD GAS BASE EXCESS -2.4 mmol/L (-2-2); ARTERIAL BLOOD GAS PO2 209.1 mmHg (80-100); ARTERIAL BLOOD GAS pH 7.309 (7.350-7.450)
[2024-04-16 16:50] LABS: VENT MODE A/C; VENT RATE 14
[2024-04-16] MEDS: LACTATED RINGERS SOLUTION 1,000 ML/1,000 ML INFUS.BAG IV ONE (17:11)
[2024-04-16] MEDS: FENTANYL NS IVPB 500 MCG/100 ML BAG IVPB SCH (17:32)
[2024-04-16] MEDS: FENTANYL IVPB 500 MCG/100 ML BAG IVPB SCH (17:33)
[2024-04-16] MEDS: PROPOFOL 1,000,000 MCG/100 ML VIAL IVPB SCH (21:31)
[2024-04-17] MEDS: VANCOMYCIN/WATER FOR INJ (PEG) 750 MG/150 ML BAG IVPB SCH (00:58)
[2024-04-17] MEDS: PIPERACILLIN/TAZOB 4.5 GM 4.5 GM in DEXTROSE 5%-WATER 100 ML IVPB SCH ×2 (00:58→10:28)
[2024-04-17] MEDS: SODIUM CHLORIDE 0.9% 500 ML INFUS.BAG IV ONE (03:45)
[2024-04-17] MEDS: PHENYLEPHRINE NS PREMIX 50,000 MCG/500 ML BAG CVP SCH (04:00)
[2024-04-17] MEDS ORDERED: PHENYLEPHRINE HCL 10 MG/1 ML SINGLE DOSE VIAL ONE (04:01)
[2024-04-17] MEDS: LACTATED RINGERS SOLUTION 1000 ML INFUS.BAG IV ONE ×3 (04:20→19:46)
[2024-04-17 06:56] LABS: HEMATOCRIT 36.6 % (35.4-49); HEMOGLOBIN 12.2 GM/dL (11.7-16.9); MCH 31.4 pg (25.7-33.7); MCHC 33.4 g/dl (32.0-35.9); MEAN CELL VOLUME 94.2 fl (80-96); MEAN PLT VOLUME 9.6 fl (7.5-11.1); PLATELET COUNT 194 10^3/uL (134-434); RBC 3.89 M/mm3 (4.00-5.60); RDW 13.8 % (11.9-15.9); WHITE BLOOD COUNT 8.5 K/mm3 (4.0-10.0)
[2024-04-17 07:11] LABS: POTASSIUM 4.4 mmol/L (3.5-5.1)
[2024-04-17 07:16] LABS: CALCIUM 8.3 mg/dL (8.5-10.1)
[2024-04-17 07:17] LABS: BLOOD UREA NITROGEN 16.7 mg/dL (7-18)
[2024-04-17 07:20] LABS: CREATININE 1.1 mg/dL (0.55-1.3)
[2024-04-17] MEDS: LACTATED RINGERS SOLUTION 1,000 ML/1,000 ML INFUS.BAG IV SCH (09:23)
[2024-04-17] MEDS: ACYCLOVIR 500 MG (50MG/ML) VIAL IVPUSH SCH (09:23)
[2024-04-17] MEDS: VANCOMYCIN 750 MG in DEXTROSE 5%-WATER - 150 ML IVPB SCH (10:28)
[2024-04-17] MEDS: ACYCLOVIR 500 MG (50MG/ML) VIAL IVPUSH ONE (10:28)
[2024-04-17] MEDS: ACYCLOVIR INJECTION 250 MG in DEXTROSE 5%-WATER - 100 ML IVPB SCH (10:55)
[2024-04-17] MEDS: LACTATED RINGERS SOLUTION 1,000 ML/1,000 ML INFUS.BAG IV ONE (10:57)
[2024-04-17 12:55] LABS: ARTERIAL BLD GAS O2 SATURATION 93.4 % (95-98); ARTERIAL BLOOD GAS BASE EXCESS -4.4 mmol/L (-2-2); ARTERIAL BLOOD GAS PO2 71.8 mmHg (80-100); ARTERIAL BLOOD GAS pH 7.326 (7.350-7.450)
[2024-04-17 12:56] LABS: ALLENS TEST POSITIVE; VENT MODE A/C; VENT RATE 14
[2024-04-17] MEDS: PIPERACILLIN/TAZOB 3.375 GM 3.375 GM in DEXTROSE 5%-WATER - 50 ML IVPB SCH (14:50)
[2024-04-17] MEDS ORDERED: BISACODYL 10 MG SUPP.RECT PR PRN (16:01)
[2024-04-17] MEDS: NOREPINEPHRINE BITARTRATE/D5W 8 MG/250 ML BAG IVPB SCH (17:35)
[2024-04-17 20:50] LABS: VENOUS BASE EXCESS -3.2 mmol/L (-2-2); VENOUS O2 SATURATION 74.5 % (70-80); VENOUS PCO2 43.8 mmHg (38-52); VENOUS PH 7.331 (7.310-7.410)
[2024-04-17 20:52] LABS: BASO % 0.1 % (0-2.0); EOS % 0.1 % (0-4.5); HEMATOCRIT 30.8 % (35.4-49); HEMOGLOBIN 10.4 GM/dL (11.7-16.9); LYMPH % 5.5 % (8-40); MCHC 33.7 g/dl (32.0-35.9); MEAN CELL VOLUME 91.8 fl (80-96); MEAN PLT VOLUME 9.3 fl (7.5-11.1); MONO % 1.6 % (3.8-10.2); NEUT % 92.7 % (42.8-82.8); PLATELET COUNT 183 10^3/uL (134-434); RBC 3.36 M/mm3 (4.00-5.60); RDW 14.3 % (11.9-15.9); WHITE BLOOD COUNT 14.8 K/mm3 (4.0-10.0)
[2024-04-17] MEDS: MAGNESIUM 2GM/50ML STERILE WATER IVPB IVPB ONE (21:27)
[2024-04-17 21:32] LABS: POTASSIUM 4.6 mmol/L (3.5-5.1)
[2024-04-17 21:34] LABS: BLOOD UREA NITROGEN 13.4 mg/dL (7-18)
[2024-04-17 21:35] LABS: MAGNESIUM 1.5 mg/dL (1.8-2.4)
[2024-04-17 21:38] LABS: PHOSPHOROUS 2.9 mg/dL (2.5-4.9)
[2024-04-17 22:21] LABS: ANISOCYTOSIS 1+; MACROCYTOSIS 0; OVALOCYTE 1+
[2024-04-18] MEDS: MAGNESIUM 2GM/50ML STERILE WATER IVPB IVPB ONE (00:13)
[2024-04-18 08:15] LABS: HEMATOCRIT 31.5 % (35.4-49); HEMOGLOBIN 10.7 GM/dL (11.7-16.9); MCH 31.2 pg (25.7-33.7); MEAN PLT VOLUME 9.8 fl (7.5-11.1); PLATELET COUNT 211 10^3/uL (134-434); RBC 3.42 M/mm3 (4.00-5.60); RDW 14.5 % (11.9-15.9); WHITE BLOOD COUNT 16.9 K/mm3 (4.0-10.0)
[2024-04-18 08:33] LABS: POTASSIUM 4.7 mmol/L (3.5-5.1)
[2024-04-18 08:45] LABS: BLOOD UREA NITROGEN 13.2 mg/dL (7-18)
[2024-04-18 08:47] LABS: CALCIUM 8.3 mg/dL (8.5-10.1); MAGNESIUM 2.8 mg/dL (1.8-2.4)
[2024-04-18 08:50] LABS: CREATININE 1.1 mg/dL (0.55-1.3); PHOSPHOROUS 2.5 mg/dL (2.5-4.9)
[2024-04-18 08:51] LABS: BILIRUBIN,TOTAL 0.3 mg/dL (0.2-1); TOT PROT 4.4 g/dl (6.4-8.2)
[2024-04-18 08:53] LABS: ALBUMIN 1.6 g/dl (3.4-5.0)
[2024-04-18 09:14] LABS: PLATELET ESTIMATE ADEQUATE
[2024-04-18 12:38] VITALS: BMI 21.4
[2024-04-18] MEDS: VASopressin 40 UNITS/100 ML BAG IV SCH (15:53)
[2024-04-19 07:12] LABS: ARTERIAL BLOOD GAS BASE EXCESS -4.6 mmol/L (-2-2); ARTERIAL BLOOD GAS PO2 115.6 mmHg (80-100); ARTERIAL BLOOD GAS pH 7.334 (7.350-7.450)
[2024-04-19 07:31] LABS: BASO % 0.1 % (0-2.0); EOS % 0.6 % (0-4.5); HEMATOCRIT 28.6 % (35.4-49); HEMOGLOBIN 9.7 GM/dL (11.7-16.9); LYMPH % 4.9 % (8-40); MCH 31.2 pg (25.7-33.7); MCHC 33.8 g/dl (32.0-35.9); MEAN CELL VOLUME 92.5 fl (80-96); MEAN PLT VOLUME 9.9 fl (7.5-11.1); MONO % 2.3 % (3.8-10.2); NEUT % 92.1 % (42.8-82.8); PLATELET COUNT 153 10^3/uL (134-434); RDW 13.7 % (11.9-15.9); WHITE BLOOD COUNT 7.6 K/mm3 (4.0-10.0)
[2024-04-19 07:40] LABS: POTASSIUM 4.9 mmol/L (3.5-5.1)
[2024-04-19 07:51] LABS: CALCIUM 8.2 mg/dL (8.5-10.1)
[2024-04-19 07:52] LABS: ALBUMIN 1.5 g/dl (3.4-5.0); BLOOD UREA NITROGEN 14.1 mg/dL (7-18); MAGNESIUM 2.3 mg/dL (1.8-2.4)
[2024-04-19 07:55] LABS: CREATININE 0.9 mg/dL (0.55-1.3); PHOSPHOROUS 2.6 mg/dL (2.5-4.9)
[2024-04-19 07:56] LABS: BILIRUBIN,TOTAL 0.4 mg/dL (0.2-1)
[2024-04-19 07:57] LABS: TOT PROT 4.5 g/dl (6.4-8.2)
[2024-04-19 09:03] LABS: ANISOCYTOSIS 0; MACROCYTOSIS 0
[2024-04-19 09:11] LABS: PLATELET ESTIMATE ADEQUATE
[2024-04-19] MEDS: LACTATED RINGERS SOLUTION 1000 ML INFUS.BAG IV ONE (18:38)
[2024-04-20 07:21] LABS: BLOOD UREA NITROGEN 18.7 mg/dL (7-18); CALCIUM 8.8 mg/dL (8.5-10.1)
[2024-04-20 07:23] LABS: ALBUMIN 1.4 g/dl (3.4-5.0)
[2024-04-20 07:28] LABS: TOT PROT 4.4 g/dl (6.4-8.2)
[2024-04-20 07:29] LABS: BILIRUBIN,TOTAL 0.4 mg/dL (0.2-1)
[2024-04-20 08:42] LABS: BASO % 0.1 % (0-2.0); EOS % 0.1 % (0-4.5); HEMOGLOBIN 9.4 GM/dL (11.7-16.9); MCH 31.7 pg (25.7-33.7); MCHC 34.7 g/dl (32.0-35.9); MEAN CELL VOLUME 91.3 fl (80-96); MEAN PLT VOLUME 9.2 fl (7.5-11.1); MONO % 2.7 % (3.8-10.2); NEUT % 90.1 % (42.8-82.8); PLATELET COUNT 159 10^3/uL (134-434); RBC 2.96 M/mm3 (4.00-5.60); RDW 14.2 % (11.9-15.9); WHITE BLOOD COUNT 7.5 K/mm3 (4.0-10.0)
[2024-04-20 09:01] LABS: POTASSIUM 3.8 mmol/L (3.5-5.1)
[2024-04-20 09:03] LABS: CALCIUM 8.8 mg/dL (8.5-10.1)
[2024-04-20 09:04] LABS: ALBUMIN 1.4 g/dl (3.4-5.0); BLOOD UREA NITROGEN 16.7 mg/dL (7-18); MAGNESIUM 2.3 mg/dL (1.8-2.4)
[2024-04-20 09:07] LABS: PHOSPHOROUS 2.4 mg/dL (2.5-4.9)
[2024-04-20 09:08] LABS: BILIRUBIN,TOTAL 0.3 mg/dL (0.2-1)
[2024-04-20 09:09] LABS: TOT PROT 4.3 g/dl (6.4-8.2)
[2024-04-20] MEDS: MIDODRINE HCL 5 MG TABLET NGT SCH (15:12)
[2024-04-20] MEDS: LABETALOL HCL 5 MG/1 ML (100MG/20 ML VIAL) IVPUSH ONE ×2 (16:31→17:59)
[2024-04-21 07:01] LABS: HEMATOCRIT 27.2 % (35.4-49); HEMOGLOBIN 9.4 GM/dL (11.7-16.9); MCH 31.7 pg (25.7-33.7); MCHC 34.5 g/dl (32.0-35.9); MEAN CELL VOLUME 91.8 fl (80-96); MEAN PLT VOLUME 8.9 fl (7.5-11.1); PLATELET COUNT 156 10^3/uL (134-434); RBC 2.96 M/mm3 (4.00-5.60); RDW 13.9 % (11.9-15.9); WHITE BLOOD COUNT 7.4 K/mm3 (4.0-10.0)
[2024-04-21 07:18] LABS: POTASSIUM 4.1 mmol/L (3.5-5.1)
[2024-04-21 07:24] LABS: CALCIUM 8.6 mg/dL (8.5-10.1)
[2024-04-21 07:25] LABS: ALBUMIN 1.4 g/dl (3.4-5.0); BLOOD UREA NITROGEN 17.2 mg/dL (7-18); MAGNESIUM 2.1 mg/dL (1.8-2.4)
[2024-04-21 07:28] LABS: CREATININE 0.9 mg/dL (0.55-1.3); PHOSPHOROUS 3.2 mg/dL (2.5-4.9)
[2024-04-21 07:29] LABS: TOT PROT 4.5 g/dl (6.4-8.2)
[2024-04-21 07:31] LABS: BILIRUBIN,TOTAL 0.2 mg/dL (0.2-1)
[2024-04-21 08:33] LABS: URINE APPEARANCE CLEAR; URINE BILIRUBIN NEGATIVE (NEGATIVE); URINE COLOR YELLOW; URINE GLUCOSE (UA) NEGATIVE (NEGATIVE); URINE KETONE NEGATIVE (NEGATIVE); URINE LEUK ESTERASE NEGATIVE (NEGATIVE); URINE NITRITE NEGATIVE (NEGATIVE); URINE PROTEIN TRACE (NEGATIVE); URINE UROBILINOGEN 0.2 mg/dL (0.2-1.0)
[2024-04-21] MEDS: MIDODRINE HCL 5 MG TABLET NGT SCH (09:04)
[2024-04-21] MEDS: ACETAMINOPHEN 1000 MG/100 ML BAG IVPB PRN (17:14)
[2024-04-21] MEDS: NYSTATIN 500,000 UNITS/5 ML SUSPENSION PO SCH (17:15)
[2024-04-21] MEDS: LABETALOL HCL 5 MG/1 ML (100MG/20 ML VIAL) IVPUSH ONE (17:37)
[2024-04-21] MEDS ORDERED: METOPROLOL TARTRATE 5 MG/5 ML VIAL ONE (23:12)
[2024-04-21] MEDS: METOPROLOL TARTRATE 5 MG/5 ML VIAL IVPUSH ONE (23:13)
[2024-04-22] MEDS ORDERED: LABETALOL HCL 5 MG/1 ML (100MG/20 ML VIAL) ONE (00:22)
[2024-04-22] MEDS: LABETALOL HCL 5 MG/1 ML (100MG/20 ML VIAL) IVPUSH ONE (00:55)
[2024-04-22 07:04] LABS: HEMATOCRIT 30.1 % (35.4-49); MCH 30.5 pg (25.7-33.7); MCHC 33.2 g/dl (32.0-35.9); MEAN PLT VOLUME 8.6 fl (7.5-11.1); PLATELET COUNT 176 10^3/uL (134-434); RBC 3.27 M/mm3 (4.00-5.60); RDW 13.9 % (11.9-15.9); WHITE BLOOD COUNT 7.2 K/mm3 (4.0-10.0)
[2024-04-22 07:19] LABS: POTASSIUM 3.2 mmol/L (3.5-5.1)
[2024-04-22 07:25] LABS: CALCIUM 8.8 mg/dL (8.5-10.1)
[2024-04-22 07:26] LABS: ALBUMIN 1.6 g/dl (3.4-5.0); BLOOD UREA NITROGEN 14.9 mg/dL (7-18); MAGNESIUM 1.9 mg/dL (1.8-2.4)
[2024-04-22 07:29] LABS: CREATININE 0.7 mg/dL (0.55-1.3)
[2024-04-22 07:30] LABS: BILIRUBIN,TOTAL 0.5 mg/dL (0.2-1)
[2024-04-22] MEDS: KCL 20 MEQ PREMIX BAG 20 MEQ/100 ML INFUS.BAG IVPB SCH (10:49)
[2024-04-22] MEDS: FUROSEMIDE 40 MG/4 ML INJECTABLE VIAL IVPUSH SCH (13:16)
[2024-04-22] MEDS: ALBUTEROL SO4 2.5/IPRATROPIUM 0.5 INH SOL 3 ML VIAL.NEB. NEB SCH (14:57)
[2024-04-22] MEDS: POTASSIUM PHOSPHATE 15 MM in SODIUM CHLORIDE 100 ML IVPB ONE (15:07)
[2024-04-22] MEDS: PANTOPRAZOLE SODIUM 40 MG VIAL IVPUSH SCH (17:47)
[2024-04-22] MEDS: hydrALAZINE HCL 20 MG/ML VIAL IVPUSH PRN (18:30)
[2024-04-22] MEDS ORDERED: METOPROLOL TARTRATE 5 MG/5 ML VIAL ONE (18:39)
[2024-04-22] MEDS: METOPROLOL TARTRATE 5 MG/5 ML VIAL IVPUSH ONE ×2 (18:42)
[2024-04-22] MEDS: SODIUM CHLORIDE 1,000 ML IV STA (18:52)
[2024-04-22] MEDS: SILVER SULFADIAZINE 1% TOP CREAM 50 GM JAR TP SCH (21:21)
[2024-04-22] MEDS: AMIODARONE IN DEXTROSE,ISO-OSM 150 MG/100 ML BAG IVPB ONE (21:21)
[2024-04-22 21:29] LABS: ALLENS TEST POSITIVE; ARTERIAL BLD GAS O2 SATURATION 94.5 % (95-98); ARTERIAL BLOOD GAS BASE EXCESS 2.2 mmol/L (-2-2); ARTERIAL BLOOD GAS PO2 65.8 mmHg (80-100); ARTERIAL BLOOD GAS pH 7.489 (7.350-7.450)
[2024-04-23] MEDS: ACETAMINOPHEN 1000 MG/100 ML BAG IVPB ONE ×2 (06:43→18:47)
[2024-04-23 07:08] LABS: HEMATOCRIT 28.7 % (35.4-49); HEMOGLOBIN 9.6 GM/dL (11.7-16.9); MCH 30.7 pg (25.7-33.7); MCHC 33.4 g/dl (32.0-35.9); MEAN CELL VOLUME 91.8 fl (80-96); MEAN PLT VOLUME 8.6 fl (7.5-11.1); PLATELET COUNT 201 10^3/uL (134-434); RBC 3.13 M/mm3 (4.00-5.60); RDW 13.9 % (11.9-15.9); WHITE BLOOD COUNT 6.2 K/mm3 (4.0-10.0)
[2024-04-23 07:39] LABS: ALBUMIN 1.5 g/dl (3.4-5.0); BLOOD UREA NITROGEN 16.2 mg/dL (7-18); CALCIUM 8.3 mg/dL (8.5-10.1); MAGNESIUM 1.7 mg/dL (1.8-2.4)
[2024-04-23 07:42] LABS: CREATININE 0.8 mg/dL (0.55-1.3)
[2024-04-23 07:45] LABS: BILIRUBIN,TOTAL 0.3 mg/dL (0.2-1); TOT PROT 4.8 g/dl (6.4-8.2)
[2024-04-23] MEDS: KCL 20 MEQ PREMIX BAG 20 MEQ/100 ML INFUS.BAG IVPB SCH (08:47)
[2024-04-23] MEDS: MAGNESIUM 1GM/D5W - 1 GM/100 ML IVPB IVPB ONE (08:51)
[2024-04-23] MEDS: POTASSIUM PHOSPHATE 30 MM in DEXTROSE 5%-WATER - 250 ML IVPB ONE (10:36)
[2024-04-24 07:12] LABS: HEMATOCRIT 30.4 % (35.4-49); HEMOGLOBIN 10.2 GM/dL (11.7-16.9); MCH 30.8 pg (25.7-33.7); MCHC 33.5 g/dl (32.0-35.9); MEAN CELL VOLUME 91.7 fl (80-96); MEAN PLT VOLUME 8.3 fl (7.5-11.1); PLATELET COUNT 273 10^3/uL (134-434); RBC 3.32 M/mm3 (4.00-5.60); RDW 13.7 % (11.9-15.9); WHITE BLOOD COUNT 9.4 K/mm3 (4.0-10.0)
[2024-04-24 07:38] LABS: POTASSIUM 4.2 mmol/L (3.5-5.1)
[2024-04-24 07:40] LABS: BLOOD UREA NITROGEN 16.2 mg/dL (7-18); CALCIUM 8.8 mg/dL (8.5-10.1); MAGNESIUM 1.9 mg/dL (1.8-2.4)
[2024-04-24 07:43] LABS: CREATININE 0.7 mg/dL (0.55-1.3); PHOSPHOROUS 2.2 mg/dL (2.5-4.9)
[2024-04-24 07:44] LABS: ALBUMIN 1.6 g/dl (3.4-5.0)
[2024-04-24 07:45] LABS: BILIRUBIN,TOTAL 0.6 mg/dL (0.2-1); TOT PROT 5.3 g/dl (6.4-8.2)
[2024-04-24] MEDS ORDERED: MAGNESIUM SULF 50% (8.12 MEQ/2 ML-1 GM VIAL) IVPB ONE (09:00)
[2024-04-24 09:44] LABS: POTASSIUM 3.6 mmol/L (3.5-5.1)
[2024-04-24 09:46] LABS: BLOOD UREA NITROGEN 15.3 mg/dL (7-18); MAGNESIUM 1.9 mg/dL (1.8-2.4)
[2024-04-24 09:49] LABS: CREATININE 0.8 mg/dL (0.55-1.3)
[2024-04-24] MEDS: POTASSIUM PHOSPHATE 30 MM in DEXTROSE 5%-WATER - 250 ML IVPB ONE (11:00)
[2024-04-24] MEDS: THIAMINE HCL 200 MG/2 ML VIAL IM SCH (11:03)
[2024-04-24] MEDS: MAGNESIUM 2GM/50ML STERILE WATER IVPB IVPB ONE (14:15)
[2024-04-25 06:51] LABS: HEMATOCRIT 29.2 % (35.4-49); HEMOGLOBIN 9.8 GM/dL (11.7-16.9); MCH 30.8 pg (25.7-33.7); MCHC 33.8 g/dl (32.0-35.9); MEAN CELL VOLUME 91.2 fl (80-96); MEAN PLT VOLUME 8.6 fl (7.5-11.1); PLATELET COUNT 315 10^3/uL (134-434); RDW 13.5 % (11.9-15.9); WHITE BLOOD COUNT 10.6 K/mm3 (4.0-10.0)
[2024-04-25 07:07] LABS: POTASSIUM 4.2 mmol/L (3.5-5.1)
[2024-04-25 07:14] LABS: CALCIUM 8.4 mg/dL (8.5-10.1)
[2024-04-25 07:15] LABS: ALBUMIN 1.7 g/dl (3.4-5.0); BLOOD UREA NITROGEN 16.8 mg/dL (7-18); MAGNESIUM 2.2 mg/dL (1.8-2.4)
[2024-04-25 07:17] LABS: CREATININE 0.8 mg/dL (0.55-1.3); PHOSPHOROUS 2.4 mg/dL (2.5-4.9)
[2024-04-25 07:19] LABS: BILIRUBIN,TOTAL 0.4 mg/dL (0.2-1); TOT PROT 5.2 g/dl (6.4-8.2)
[2024-04-25] MEDS: ACETAMINOPHEN 1000 MG/100 ML BAG IVPB ONE (22:16)
[2024-04-26 07:13] LABS: BASO % 0.2 % (0-2.0); EOS % 1.2 % (0-4.5); HEMATOCRIT 30.7 % (35.4-49); HEMOGLOBIN 10.2 GM/dL (11.7-16.9); LYMPH % 9.9 % (8-40); MCH 30.2 pg (25.7-33.7); MCHC 33.1 g/dl (32.0-35.9); MEAN CELL VOLUME 91.1 fl (80-96); MEAN PLT VOLUME 8.8 fl (7.5-11.1); MONO % 5.6 % (3.8-10.2); NEUT % 83.1 % (42.8-82.8); PLATELET COUNT 364 10^3/uL (134-434); RBC 3.37 M/mm3 (4.00-5.60); RDW 13.6 % (11.9-15.9); WHITE BLOOD COUNT 11.3 K/mm3 (4.0-10.0)
[2024-04-26 10:15] LABS: CALCIUM 8.7 mg/dL (8.5-10.1)
[2024-04-26 10:16] LABS: BLOOD UREA NITROGEN 16.5 mg/dL (7-18); MAGNESIUM 2.1 mg/dL (1.8-2.4)
[2024-04-26 10:19] LABS: CREATININE 0.8 mg/dL (0.55-1.3)
[2024-04-26] MEDS: metoPROLOL SUCCINATE 25 MG TAB.SR.24H (FP) PO SCH (12:05)
[2024-04-26] MEDS: AMINO ACIDS 4.25%/D5W 1,000 ML IV SCH (13:57)
[2024-04-26 15:20] LABS: ARTERIAL BLD GAS O2 SATURATION 94.1 % (95-98); ARTERIAL BLOOD GAS BASE EXCESS 2.7 mmol/L (-2-2); ARTERIAL BLOOD GAS PO2 62.5 mmHg (80-100); ARTERIAL BLOOD GAS pH 7.513 (7.350-7.450)
[2024-04-26 15:25] LABS: ALLENS TEST POSITIVE
[2024-04-26] MEDS ORDERED: ALBUTEROL SO4 2.5/IPRATROPIUM 0.5 INH SOL 3 ML VIAL.NEB. NEB PRN (16:46)
[2024-04-26] MEDS: FUROSEMIDE 40 MG/4 ML INJECTABLE VIAL IVPUSH ONE (17:42)
[2024-04-26] MEDS ORDERED: BISACODYL 10 MG SUPP.RECT PR PRN (19:45)
[2024-04-26] MEDS: MEROPENEM 1 GM in DEXTROSE 5%-WATER 100 ML IVPB SCH (20:23)
[2024-04-26] MEDS: HEPARIN NA (PORCINE) 5,000 UNITS/ML 1ML VIAL SQ SCH (22:10)
[2024-04-27] MEDS: NYSTATIN 500,000 UNITS/5 ML SUSPENSION PO SCH (00:08)
[2024-04-27 07:13] LABS: BASO % 0.2 % (0-2.0); EOS % 0.8 % (0-4.5); HEMATOCRIT 31.1 % (35.4-49); HEMOGLOBIN 10.4 GM/dL (11.7-16.9); LYMPH % 6.8 % (8-40); MCH 30.8 pg (25.7-33.7); MCHC 33.5 g/dl (32.0-35.9); MEAN CELL VOLUME 91.9 fl (80-96); MEAN PLT VOLUME 8.7 fl (7.5-11.1); MONO % 5.1 % (3.8-10.2); NEUT % 87.1 % (42.8-82.8); PLATELET COUNT 477 10^3/uL (134-434); RBC 3.38 M/mm3 (4.00-5.60); RDW 13.7 % (11.9-15.9); WHITE BLOOD COUNT 15.8 K/mm3 (4.0-10.0)
[2024-04-27 07:51] LABS: POTASSIUM 4.4 mmol/L (3.5-5.1)
[2024-04-27 07:53] LABS: ALBUMIN 1.8 g/dl (3.4-5.0); CALCIUM 8.6 mg/dL (8.5-10.1)
[2024-04-27 07:54] LABS: BLOOD UREA NITROGEN 21.2 mg/dL (7-18)
[2024-04-27 07:56] LABS: CREATININE 0.8 mg/dL (0.55-1.3)
[2024-04-27 07:58] LABS: BILIRUBIN,TOTAL 0.3 mg/dL (0.2-1); TOT PROT 5.7 g/dl (6.4-8.2)
[2024-04-27] MEDS: TAMSULOSIN HCL 0.4 MG CAP PO SCH (08:45)
[2024-04-27] MEDS: THIAMINE HCL 200 MG/2 ML VIAL IM SCH (09:56)
[2024-04-27] MEDS ORDERED: METOPROLOL TARTRATE 5 MG/5 ML VIAL IVPUSH SCH (12:30)
[2024-04-27] MEDS: SILVER SULFADIAZINE 1% TOP CREAM 50 GM JAR TP SCH (12:33)
[2024-04-27] MEDS: METOPROLOL TARTRATE 5 MG/5 ML VIAL IVPUSH SCH (12:45)
[2024-04-27 15:35] LABS: ARTERIAL BLD GAS O2 SATURATION 95.7 % (95-98); ARTERIAL BLOOD GAS BASE EXCESS 2.3 mmol/L (-2-2); ARTERIAL BLOOD GAS PO2 71.1 mmHg (80-100); ARTERIAL BLOOD GAS pH 7.501 (7.350-7.450)
[2024-04-27 15:36] LABS: ALLENS TEST POSITIVE
[2024-04-27] MEDS: AMINO ACIDS 4.25%/D5W 1,000 ML IV SCH (15:36)
[2024-04-27] MEDS: METOPROLOL TARTRATE 5 MG/5 ML VIAL IVPUSH PRN (15:36)
[2024-04-27] MEDS: PANTOPRAZOLE SODIUM 40 MG VIAL IVPUSH SCH (17:01)
[2024-04-27] MEDS: ACETAMINOPHEN 1000 MG/100 ML BAG IVPB ONE (23:02)
[2024-04-28 07:57] LABS: HEMATOCRIT 28.9 % (35.4-49); HEMOGLOBIN 9.6 GM/dL (11.7-16.9); MCH 30.8 pg (25.7-33.7); MCHC 33.1 g/dl (32.0-35.9); MEAN CELL VOLUME 93.3 fl (80-96); MEAN PLT VOLUME 8.8 fl (7.5-11.1); PLATELET COUNT 479 10^3/uL (134-434); RDW 13.6 % (11.9-15.9); WHITE BLOOD COUNT 13.6 K/mm3 (4.0-10.0)
[2024-04-28 08:11] LABS: POTASSIUM 4.3 mmol/L (3.5-5.1)
[2024-04-28 08:14] LABS: ALBUMIN 1.7 g/dl (3.4-5.0); CALCIUM 8.8 mg/dL (8.5-10.1)
[2024-04-28 08:17] LABS: CREATININE 0.7 mg/dL (0.55-1.3); PHOSPHOROUS 1.9 mg/dL (2.5-4.9)
[2024-04-28 08:19] LABS: BILIRUBIN,TOTAL 0.4 mg/dL (0.2-1)
[2024-04-28 08:21] LABS: TOT PROT 5.4 g/dl (6.4-8.2)
[2024-04-28] MEDS: NAPH,MB-DB/K PH,MBDB POWDER PACKET PO SCH (09:43)
[2024-04-29 09:09] LABS: HEMATOCRIT 29.5 % (35.4-49); HEMOGLOBIN 9.9 GM/dL (11.7-16.9); MCH 30.9 pg (25.7-33.7); MCHC 33.6 g/dl (32.0-35.9); MEAN CELL VOLUME 91.8 fl (80-96); MEAN PLT VOLUME 8.2 fl (7.5-11.1); PLATELET COUNT 612 10^3/uL (134-434); RBC 3.22 M/mm3 (4.00-5.60); RDW 13.8 % (11.9-15.9); WHITE BLOOD COUNT 13.4 K/mm3 (4.0-10.0)
[2024-04-29 09:24] LABS: POTASSIUM 4.1 mmol/L (3.5-5.1)
[2024-04-29 09:28] LABS: CALCIUM 8.4 mg/dL (8.5-10.1)
[2024-04-29 09:29] LABS: ALBUMIN 1.5 g/dl (3.4-5.0); BLOOD UREA NITROGEN 27.3 mg/dL (7-18); MAGNESIUM 1.9 mg/dL (1.8-2.4)
[2024-04-29 09:32] LABS: BILIRUBIN,TOTAL 0.4 mg/dL (0.2-1); CREATININE 0.8 mg/dL (0.55-1.3); PHOSPHOROUS 1.7 mg/dL (2.5-4.9); TOT PROT 5.2 g/dl (6.4-8.2)
[2024-04-29] MEDS: AMINO ACIDS 4.25%/D5W 1,000 ML IV SCH ×2 (12:14→12:26)
[2024-04-29] MEDS ORDERED: MORPHINE 100 MG/100 ML MG ONE (12:29)
[2024-04-29] MEDS: MORPHINE SULFATE/0.9% NACL/PF 100 MG/100 ML BAG IVPB SCH ×2 (12:33→19:05)
[2024-04-29] MEDS ORDERED: POTASSIUM PHOSPHATE 15 MM in SODIUM CHLORIDE 250 ML IVPB ONE (14:30)
[2024-04-29] MEDS: SODIUM PHOSPHATE - 15 MM in SODIUM CHLORIDE 250 ML IVPB ONE (14:38)
[2024-04-29] MEDS ORDERED: MORPHINE SULFATE/0.9% NACL/PF 100 MG/100 ML BAG IVPB SCH (19:01)
[2024-04-30 08:49] LABS: HEMATOCRIT 27.1 % (35.4-49); HEMOGLOBIN 9.1 GM/dL (11.7-16.9); MCHC 33.6 g/dl (32.0-35.9); MEAN CELL VOLUME 92.3 fl (80-96); PLATELET COUNT 620 10^3/uL (134-434); RBC 2.94 M/mm3 (4.00-5.60); RDW 13.5 % (11.9-15.9); WHITE BLOOD COUNT 13.8 K/mm3 (4.0-10.0)
[2024-04-30 09:08] LABS: POTASSIUM 4.6 mmol/L (3.5-5.1)
[2024-04-30 09:12] LABS: ALBUMIN 1.6 g/dl (3.4-5.0); BLOOD UREA NITROGEN 26.6 mg/dL (7-18); CALCIUM 9.2 mg/dL (8.5-10.1)
[2024-04-30 09:15] LABS: BILIRUBIN,TOTAL 0.4 mg/dL (0.2-1); CREATININE 0.6 mg/dL (0.55-1.3); PHOSPHOROUS 2.3 mg/dL (2.5-4.9); TOT PROT 5.7 g/dl (6.4-8.2)
[2024-04-30] MEDS ORDERED: SODIUM PHOSPHATE - 0 MM in SODIUM CHLORIDE 250 ML IVPB ONE (12:20)
[2024-04-30] MEDS ORDERED: ACETAMINOPHEN 1000 MG/100 ML BAG IVPB PRN (16:50)
[2024-04-30] MEDS ORDERED: METOPROLOL TARTRATE 5 MG/5 ML VIAL IVPUSH PRN (20:47)
[2024-04-30] MEDS ORDERED: BISACODYL 10 MG SUPP.RECT PR PRN (20:47)
[2024-04-30] MEDS ORDERED: ALBUTEROL SO4 2.5/IPRATROPIUM 0.5 INH SOL 3 ML VIAL.NEB. NEB PRN (20:47)
[2024-04-30] MEDS: HEPARIN NA (PORCINE) 5,000 UNITS/ML 1ML VIAL SQ SCH (21:33)
[2024-05-01] MEDS: NYSTATIN 500,000 UNITS/5 ML SUSPENSION PO SCH (00:35)
[2024-05-01] MEDS: MEROPENEM 1 GM in DEXTROSE 5%-WATER 100 ML IVPB SCH (02:38)
[2024-05-01 07:49] LABS: HEMATOCRIT 30.5 % (35.4-49); HEMOGLOBIN 10.2 GM/dL (11.7-16.9); MCH 30.5 pg (25.7-33.7); MCHC 33.3 g/dl (32.0-35.9); MEAN CELL VOLUME 91.7 fl (80-96); MEAN PLT VOLUME 8.4 fl (7.5-11.1); PLATELET COUNT 628 10^3/uL (134-434); RBC 3.32 M/mm3 (4.00-5.60); RDW 13.2 % (11.9-15.9); WHITE BLOOD COUNT 11.6 K/mm3 (4.0-10.0)
[2024-05-01 08:00] LABS: POTASSIUM 4.8 mmol/L (3.5-5.1)
[2024-05-01 08:05] LABS: CALCIUM 10.2 mg/dL (8.5-10.1)
[2024-05-01 08:07] LABS: ALBUMIN 1.7 g/dl (3.4-5.0); BLOOD UREA NITROGEN 27.3 mg/dL (7-18); CREATININE 0.7 mg/dL (0.55-1.3)
[2024-05-01 08:08] LABS: TOT PROT 6.1 g/dl (6.4-8.2)
[2024-05-01 08:09] LABS: BILIRUBIN,TOTAL 0.7 mg/dL (0.2-1); PHOSPHOROUS 1.9 mg/dL (2.5-4.9)
[2024-05-01] MEDS: TAMSULOSIN HCL 0.4 MG CAP PO SCH (09:19)
[2024-05-01] MEDS: metoPROLOL SUCCINATE 25 MG TAB.SR.24H (FP) PO SCH (09:19)
[2024-05-01] MEDS: SILVER SULFADIAZINE 1% TOP CREAM 50 GM JAR TP SCH (09:30)
[2024-05-01] MEDS: PANTOPRAZOLE SODIUM 40 MG VIAL IVPUSH SCH (17:51)
[2024-05-01] MEDS: SODIUM PHOSPHATE - 20 MM in SODIUM CHLORIDE 250 ML IVPB ONE (18:51)
[2024-05-02 08:22] LABS: ARTERIAL BLD GAS O2 SATURATION 99.6 % (95-98); ARTERIAL BLOOD GAS BASE EXCESS 3.3 mmol/L (-2-2); ARTERIAL BLOOD GAS PO2 227.1 mmHg (80-100); ARTERIAL BLOOD GAS pH 7.529 (7.350-7.450)
[2024-05-02 08:23] LABS: ALLENS TEST POSITIVE
[2024-05-02 08:57] LABS: BASO % 0.7 % (0-2.0); EOS % 1.4 % (0-4.5); HEMATOCRIT 27.2 % (35.4-49); HEMOGLOBIN 9.2 GM/dL (11.7-16.9); LYMPH % 10.3 % (8-40); MCHC 33.7 g/dl (32.0-35.9); MEAN PLT VOLUME 8.3 fl (7.5-11.1); NEUT % 79.6 % (42.8-82.8); PLATELET COUNT 568 10^3/uL (134-434); RBC 2.96 M/mm3 (4.00-5.60); RDW 13.5 % (11.9-15.9); WHITE BLOOD COUNT 8.1 K/mm3 (4.0-10.0)
[2024-05-02 09:19] LABS: POTASSIUM 4.3 mmol/L (3.5-5.1)
[2024-05-02 09:27] LABS: ALBUMIN 1.6 g/dl (3.4-5.0); BLOOD UREA NITROGEN 27.4 mg/dL (7-18)
[2024-05-02 09:28] LABS: CALCIUM 9.4 mg/dL (8.5-10.1)
[2024-05-02 09:31] LABS: CREATININE 0.5 mg/dL (0.55-1.3); TOT PROT 5.4 g/dl (6.4-8.2)
[2024-05-02 09:32] LABS: BILIRUBIN,TOTAL 0.5 mg/dL (0.2-1)
[2024-05-02 10:40] LABS: PHOSPHOROUS 2.2 mg/dL (2.5-4.9)
[2024-05-02] MEDS ORDERED: SODIUM PHOSPHATE - 0 MM in DEXTROSE 5%-WATER - 250 ML IVPB ONE (11:24)
[2024-05-02] MEDS: SODIUM PHOSPHATE - 15 MM in DEXTROSE 5%-WATER - 250 ML IVPB ONE (11:55)
[2024-05-02] MEDS: SODIUM PHOSPHATE - 15 MM in SODIUM CHLORIDE 250 ML IVPB ONE (12:25)
[2024-05-03 09:06] LABS: HEMATOCRIT 29.5 % (35.4-49); HEMOGLOBIN 10.1 GM/dL (11.7-16.9); MCH 31.2 pg (25.7-33.7); MCHC 34.2 g/dl (32.0-35.9); MEAN CELL VOLUME 91.1 fl (80-96); PLATELET COUNT 689 10^3/uL (134-434); RBC 3.24 M/mm3 (4.00-5.60); RDW 13.8 % (11.9-15.9); WHITE BLOOD COUNT 8.4 K/mm3 (4.0-10.0)
[2024-05-03 09:25] LABS: POTASSIUM 4.6 mmol/L (3.5-5.1)
[2024-05-03 09:28] LABS: BLOOD UREA NITROGEN 21.8 mg/dL (7-18); CALCIUM 9.5 mg/dL (8.5-10.1)
[2024-05-03 09:31] LABS: CREATININE 0.5 mg/dL (0.55-1.3)
[2024-05-03 09:32] LABS: PHOSPHOROUS 2.4 mg/dL (2.5-4.9)
[2024-05-04 08:22] LABS: HEMOGLOBIN 9.8 GM/dL (11.7-16.9); MCH 30.5 pg (25.7-33.7); MCHC 33.7 g/dl (32.0-35.9); MEAN CELL VOLUME 90.4 fl (80-96); MEAN PLT VOLUME 8.1 fl (7.5-11.1); PLATELET COUNT 639 10^3/uL (134-434); RBC 3.21 M/mm3 (4.00-5.60); RDW 13.7 % (11.9-15.9); WHITE BLOOD COUNT 8.7 K/mm3 (4.0-10.0)
[2024-05-04 08:40] LABS: POTASSIUM 4.3 mmol/L (3.5-5.1)
[2024-05-04 08:58] LABS: BLOOD UREA NITROGEN 27.3 mg/dL (7-18); CALCIUM 9.7 mg/dL (8.5-10.1)
[2024-05-04 08:59] LABS: MAGNESIUM 2.1 mg/dL (1.8-2.4)
[2024-05-04 09:01] LABS: CREATININE 0.6 mg/dL (0.55-1.3); PHOSPHOROUS 2.3 mg/dL (2.5-4.9)
[2024-05-04] MEDS ORDERED: SODIUM PHOSPHATE - 0 MM in DEXTROSE 5%-WATER - 250 ML IVPB ONE (13:24)
[2024-05-04] MEDS: SODIUM PHOSPHATE - 15 MM in DEXTROSE 5%-WATER - 250 ML IVPB ONE (14:56)
[2024-05-05 09:32] LABS: HEMATOCRIT 31.6 % (35.4-49); HEMOGLOBIN 10.4 GM/dL (11.7-16.9); MCH 30.4 pg (25.7-33.7); MEAN PLT VOLUME 8.3 fl (7.5-11.1); PLATELET COUNT 600 10^3/uL (134-434); RBC 3.44 M/mm3 (4.00-5.60); RDW 13.7 % (11.9-15.9); WHITE BLOOD COUNT 9.7 K/mm3 (4.0-10.0)
[2024-05-05 09:51] LABS: POTASSIUM 4.8 mmol/L (3.5-5.1)
[2024-05-05 09:55] LABS: CALCIUM 10.1 mg/dL (8.5-10.1); MAGNESIUM 2.2 mg/dL (1.8-2.4)
[2024-05-05 09:59] LABS: BLOOD UREA NITROGEN 22.5 mg/dL (7-18)
[2024-05-05 10:00] LABS: BILIRUBIN,TOTAL 0.4 mg/dL (0.2-1); CREATININE 0.6 mg/dL (0.55-1.3); PHOSPHOROUS 2.7 mg/dL (2.5-4.9)
[2024-05-05 10:01] LABS: TOT PROT 6.3 g/dl (6.4-8.2)
[2024-05-05 10:04] LABS: ALBUMIN 1.9 g/dl (3.4-5.0)
[2024-05-06 08:49] LABS: HEMATOCRIT 32.1 % (35.4-49); HEMOGLOBIN 10.6 GM/dL (11.7-16.9); MCH 30.8 pg (25.7-33.7); MCHC 33.1 g/dl (32.0-35.9); MEAN CELL VOLUME 92.8 fl (80-96); MEAN PLT VOLUME 8.5 fl (7.5-11.1); PLATELET COUNT 536 10^3/uL (134-434); RBC 3.46 M/mm3 (4.00-5.60); RDW 13.8 % (11.9-15.9); WHITE BLOOD COUNT 9.3 K/mm3 (4.0-10.0)
[2024-05-06 09:08] LABS: POTASSIUM 5.1 mmol/L (3.5-5.1)
[2024-05-06 09:09] LABS: CALCIUM 9.7 mg/dL (8.5-10.1)
[2024-05-06 09:10] LABS: BLOOD UREA NITROGEN 20.8 mg/dL (7-18)
[2024-05-06 09:13] LABS: CREATININE 0.6 mg/dL (0.55-1.3)
[2024-05-06] MEDS: ALBUTEROL SO4 2.5/IPRATROPIUM 0.5 INH SOL 3 ML VIAL.NEB. NEB SCH (11:59)
[2024-05-07 08:34] LABS: HEMATOCRIT 32.1 % (35.4-49); HEMOGLOBIN 10.5 GM/dL (11.7-16.9); MCH 30.2 pg (25.7-33.7); MCHC 32.6 g/dl (32.0-35.9); MEAN CELL VOLUME 92.5 fl (80-96); MEAN PLT VOLUME 8.2 fl (7.5-11.1); PLATELET COUNT 562 10^3/uL (134-434); RBC 3.47 M/mm3 (4.00-5.60); RDW 13.7 % (11.9-15.9); WHITE BLOOD COUNT 9.7 K/mm3 (4.0-10.0)
[2024-05-07 08:50] LABS: CALCIUM 10.4 mg/dL (8.5-10.1)
[2024-05-07 08:51] LABS: BLOOD UREA NITROGEN 26.9 mg/dL (7-18); MAGNESIUM 2.4 mg/dL (1.8-2.4)
[2024-05-07 08:54] LABS: CREATININE 0.7 mg/dL (0.55-1.3); PHOSPHOROUS 2.7 mg/dL (2.5-4.9)
[2024-05-07 08:55] LABS: POTASSIUM 5.2 mmol/L (3.5-5.1)
[2024-05-07] MEDS: SCOPOLAMINE HYDROBROMIDE 1 PATCH PATCH.TD72 TD SCH (10:35)
[2024-05-07] MEDS: SODIUM CHLORIDE 1,000 ML IV STA (12:02)
[2024-05-07] MEDS: SODIUM CHLORIDE 0.45% 1,000 ML IV SCH (17:02)
[2024-05-07] MEDS: AMINO ACIDS 4.25%/D5W 2,000 ML IV SCH (17:40)
[2024-05-07 18:18] LABS: POTASSIUM 5.1 mmol/L (3.5-5.1)
[2024-05-07 18:20] LABS: CALCIUM 10.1 mg/dL (8.5-10.1)
[2024-05-07 18:24] LABS: CREATININE 0.8 mg/dL (0.55-1.3)
[2024-05-07 18:25] LABS: BILIRUBIN,TOTAL 0.4 mg/dL (0.2-1); TOT PROT 6.2 g/dl (6.4-8.2)
[2024-05-08 09:04] LABS: HEMATOCRIT 30.3 % (35.4-49); MCH 30.5 pg (25.7-33.7); MCHC 32.9 g/dl (32.0-35.9); MEAN CELL VOLUME 92.5 fl (80-96); MEAN PLT VOLUME 8.2 fl (7.5-11.1); PLATELET COUNT 435 10^3/uL (134-434); RBC 3.28 M/mm3 (4.00-5.60); RDW 13.6 % (11.9-15.9)
[2024-05-08 09:15] LABS: POTASSIUM 4.9 mmol/L (3.5-5.1)
[2024-05-08 09:18] LABS: BLOOD UREA NITROGEN 30.4 mg/dL (7-18); MAGNESIUM 2.2 mg/dL (1.8-2.4)
[2024-05-08 09:21] LABS: CREATININE 0.6 mg/dL (0.55-1.3); PHOSPHOROUS 2.6 mg/dL (2.5-4.9)
[2024-05-08] MEDS: ALBUTEROL SO4 2.5/IPRATROPIUM 0.5 INH SOL 3 ML VIAL.NEB. NEB ONE (09:21)
[2024-05-08 09:22] LABS: BILIRUBIN,TOTAL 0.4 mg/dL (0.2-1); TOT PROT 5.9 g/dl (6.4-8.2)
[2024-05-08 15:31] VITALS: RESP 16
[2024-05-08 23:22] VITALS: BP 78/67; PULSE 149; TEMP 97.9
== END 2024-05-09 06:28 | disposition expired | DRG 640 ==
LOC: JER 17:57 → JERBED 22:05 → J4W 23:06 → J7W 04-13 21:19 → JICU 04-16 15:12 → J4S 04-25 21:19 → J6S 04-30 18:45
PROVIDERS: ADMIT Internal Medicine; ATTEND Internal Medicine
PROC: 5A1955Z Respiratory Ventilation, Greater than 96 Consecutive Hours (ICD-10-PCS; principal; 2024-04-16)
PROC: 0BH17EZ Insertion of Endotracheal Airway into Trachea, Via Natural or Artificial Opening (ICD-10-PCS; 2024-04-16)
PROC: 05HM33Z Insertion of Infusion Device into Right Internal Jugular Vein, Percutaneous Approach (ICD-10-PCS; 2024-04-17)
PROC: B543ZZA Ultrasonography of Right Jugular Veins, Guidance (ICD-10-PCS; 2024-04-17)
PROC: 4A133B1 Monitoring of Arterial Pressure, Peripheral, Percutaneous Approach (ICD-10-PCS; 2024-04-18)
PROC: 4A133J1 Monitoring of Arterial Pulse, Peripheral, Percutaneous Approach (ICD-10-PCS; 2024-04-18)
DX: E87.0 Hyperosmolality and hypernatremia (principal); A41.9 Sepsis, unspecified organism; G92.8 Other toxic encephalopathy; J69.0 Pneumonitis due to inhalation of food and vomit; J96.01 Acute respiratory failure with hypoxia; R65.21 Severe sepsis with septic shock; E43 Unspecified severe protein-calorie malnutrition; N17.9 Acute kidney failure, unspecified; Z68.1 Body mass index [BMI] 19.9 or less, adult; J98.11 Atelectasis; I47.20 Ventricular tachycardia, unspecified; I48.92 Unspecified atrial flutter; F03.90 Unspecified dementia, unspecified severity, without behavioral disturbance, psychotic disturbance, mood disturbance, and anxiety; I12.9 Hypertensive chronic kidney disease with stage 1 through stage 4 chronic kidney disease, or unspecified chronic kidney disease; E78.5 Hyperlipidemia, unspecified; E83.39 Other disorders of phosphorus metabolism; E83.52 Hypercalcemia; N40.0 Benign prostatic hyperplasia without lower urinary tract symptoms; B02.9 Zoster without complications; N18.9 Chronic kidney disease, unspecified; D64.9 Anemia, unspecified; E87.6 Hypokalemia; E83.42 Hypomagnesemia; I48.91 Unspecified atrial fibrillation; K59.00 Constipation, unspecified
CPT/HCPCS: 31500; 36415; 36600; 70450-TC; 71045-TC-FY; 72125-TC; 72170-TC-FY; 73562-TC-LT-FY; 74230-TC-FY; 76775-TC; 80048; 80053; 81003; 82040; 82308; 82550; 82553; 82607; 82746; 82803; 82962; 83735; 84100; 84439; 84443; 84484; 85025; 85027; 85610; 85730; 86140; 86780; 87040; 87070; 87077; 87086; 87205; 87635; 87804; 87899; 92611-GN; 93005; 93010; 93306-TC; 94002; 94640; 94660; 97116-GP; 97161-GP; 99285-25; J0131; J0282; J1644; J3490